=== PATIENT | female | born 1980 | race Caucasian/White ===

== ENCOUNTER 2024-12-16 10:05 | Outpatient (AMB) | payer OTHER, SELFPAY ==
--- NOTE | 2024-12-16 10:07 | A.OFFVIS_ITS ---
Vital Signs 12/16/24 10:08 Height 5 ft 5 in Weight 116 lb BMI 19.3 BP 148/83 H Blood Pressure Location Lt brachial Position Sitting Respiration 15 Pulse 94 Pulse Source Pulse Oximeter Pulse Oximetry (%) 99 Oxygen Delivery Method Room Air Intake Visit Reasons: Sacroiliac Joint Pain Bun Machine Operator Required: No Allergies No Known Allergies Allergy (Verified 12/16/24 10:09) Medication List - Last Reconciled 12/16/24 by Matilde Head LPN No Known Home Meds HPI HPI Sacroiliac Joint Pain: Details: History of Present Illness The patient is a 44-year-old female presenting with chronic sacroiliac joint pain. The pain has been present for several years and is located on the right side, with a severity of 6 out of 10. The patient has previously received sacroiliac joint injections, which provided temporary relief. The patient reports a history of a trivial fall, which she does not consider significant but mentions in relation to her pain history. She has also undergone PRP injections targeting the ligaments surrounding the joint, which provided some relief. The patient has not found other treatments helpful and is considering repeating the PRP injections. The patient has a history of degenerative disc disease at L5-S1, which may contribute to her pain. She has had an MRI of the lumbar spine several years ago, but does not have the results with her. The patient has experienced similar pain during and after her pregnancies, which were in 2014 and 2019. Pain Description - Onset: Several years ago - Location: Right sacroiliac joint - Severity: 6/10 - Exacerbating factors: Not specified - Relieving factors: PRP injections provided some relief - Impact: Pain persists despite previous interventions Physical Exam - Appears afebrile. - Alert and oriented. - Mood and affect appropriate. - Follows and participates in conversation appropriately. - Respiratory effort is unlabored. - Able to transition from sit to stand unassisted. - Ambulates with bilaterally normal heel strike and toe off. Pain Management - Affect: Pain impacts daily activities and quality of life - Analgesia: PRP injections have provided some relief in the past - Adverse Effects: None reported - Activities of Daily Living: Pain persists, affecting daily functioning - Aberrant Drug Related Behaviors: None reported [facility] Medical History (Updated 12/07/24 @ 08:14 by Matilde Head LPN) Left-sided thoracic back pain Left-sided low back pain without sciatica Physical Exam Vital Signs: Last Vital Signs Pulse 94 12/16/24 10:08 Resp 15 12/16/24 10:08 BP 148/83 H 12/16/24 10:08 Pulse Ox 99 12/16/24 10:08 Oxygen Delivery Method Room Air 12/16/24 10:08 BMI result Body Mass Index 19.3 Assessment & Plan Assessment & Plan (1) Left-sided low back pain without sciatica: Code(s): M54.50 - Low back pain, unspecified Category: Medical Plan Plan - Consider repeating PRP injections targeting the ligaments surrounding the sacroiliac joint, as they have provided relief in the past. - Discussed the possibility of stem cell treatments if PRP injections are not effective. - Consider obtaining a repeat MRI of the lumbar spine to assess current status of degenerative disc disease. - Advised against the use of NSAIDs before and after PRP therapy to ensure optimal results. Patient was informed and verbally consented to the use of an ambient scribe for clinic note documentation during this visit. Discussion Notes I discussed with the patient the potential benefits and limitations of PRP injections for her chronic sacroiliac joint pain, noting that they have provided relief in the past. We also considered the option of stem cell treatment if PRP is not effective, and the importance of obtaining a repeat MRI to better understand the current status of her degenerative disc disease. I advised the patient to avoid NSAIDs before and after PRP therapy to ensure optimal results. Patient Instructions - Avoid NSAIDs before and after PRP therapy for at least two weeks. - Consider scheduling a repeat MRI of the lumbar spine. - Follow up with the clinic to discuss the outcomes of PRP therapy and consider further treatment options if necessary. Coding Level of Care Code New Pt Level 4 (57797) Diagnoses Left-sided low back pain without sciatica M54.50
[2024-12-16 10:08] VITALS: BP 148/83; PULSE 94; RESP 15; O2SAT 99; BMI 19.3
--- OUTSIDE RECORDS SUMMARY | 2024-12-16 10:08 | XMS_ITS | Clinical Summary ---
Author Organization [address] Address [address] [place] [phone] Phone Care Team Providers Care Rn Allergy Name Role Phone No, Pcp (Do Not Change Name) Primary Care Provid er Unavailable Allergies No known active allergies Medications etodolac (LODINE) 400 MG tablet Take 1 tablet (400 mg total) by mouth 2 (two) times daily.. Take with food for 21 days 30 tablet 2 7 Active Additional Information Patient not taking.Reported on 02/04/2024 Active Problems No known active problems Immunizations Immunization Administration Dates Next Due Influenza, split virus, trivalent, Preservative Free 04/21/2024 Social History Tobacco Use Types Packs/Day Years Used Date Smoking Tobacco: Never Smokeless Tobacco: Never Comments No Sex and Gender Information Value Date Recorded Sex Assigned at Not on file Legal Sex Female 12:26 PM EDT Gender Identity Not on file Sexual Orientation Not on file Last Filed Vital Signs Vital Sign Reading Time Taken Comments Blood Pressure 104/72 12/18/2016 10:40 AM EDT Pulse 87 12/18/2016 10:40 AM EDT Temperature - - Respiratory Rate - - Oxygen Saturation - - Inhaled Oxygen Concentration - - Weight 49.9 kg (110 lb) 12/18/2016 10:40 AM EDT Height 165.1 cm (5' 5 ) 12/18/2016 10:40 AM EDT Body Mass Index 18.3 12/18/2016 10:40 AM EDT Plan of Treatment Health Maintenance Due Date Last Done Comments HIV screening 12/13/1992 Hepatitis C screening 12/13/1997 Cervical cancer screening 12/13/2000 Breast cancer screening 2019 Lipid disorder screening 2019 Covid-19 vaccine series ( season) 2024 Colon cancer screening, Colonoscopy 12/13/2024 Diabetes screening 12/13/2024 Influenza vaccine 01/09/2025 04/21/2024, , 01/30/2022, Additional history exists Tetanus adult (Td q 10,TDAP once) 01/11/2030 01/12/2020, 02/12/2015, 08/18/2012 RSV Immunization (1 - 1-dose 75+ series) 12/13/2054 Meningococcal Vaccine Aged Out No georgette vinh eligible based on patient's age to complete this topic Pneumococcal Vaccine (2 - 49 years) Aged Out No longer eligible based on patient's age to complete this topic Insurance COMMERCIAL GENERIC COMMERCIAL GENERIC COMMERCIAL GENERIC COMMERCIAL GENERIC Care Teams Rn Allergy Relationship Specialty Start Date End Date No, Pcp (Do Not Change Name) PCP - General 02/04/24
== END 2024-12-16 11:24 | disposition home or self-care (01) ==
PROVIDERS: PCP Family Medicine; Visit Provider Internal Medicine
DX: M54.50 Low back pain, unspecified (principal)
CPT/HCPCS: 99204

== ENCOUNTER 2025-01-05 08:22 | Outpatient (REF) | payer OTHER, SELFPAY ==
--- OUTSIDE RECORDS SUMMARY | 2021-09-12 11:29 | XMS_ITS | Encounter Summary ---
Author Organization [facility] Address [address] [place] [address] Phone Care Team Providers Care Massage Therapist Name Role Phone Primo Elder DO Unavailable Audie Fairchild MD Unavailable Mathew Cueto MD Unavailable [phone] Chari Kaur MD Unavailable Maricel Jain MD Unavailable Jj Blake MD Unavailable Naomi Morton MD Unavailable [phone] Maricel Jain MD Primary Care Provider Encounter Details Date Type Department Care Team (Late st Contact Info) Description 09/12/2021 11:29 AM EDT Hospital Encounter [facility] IMG BDSIDE US AUTO [address] [place] [address] Mary Tamayo MD [address] [place] [address] [email or web address] Social History Tobacco Use Types Packs/Day Years [...] high school, GED, job training, learning the [place] language, technical skills, or developing parenting skills)? [...] 06/25/2024 6:40 PM Yudelka Smith RN * [place] Suicide Severity Rating Scale (Screener/Recent Self-Report) Question [...] Care Team (Late st Contact Info) Description 01/10/2025 1:15 PM EDT Office Visit [facility] [address] [place] [address] Ami Rico MD [address] [place] [address] Orthopedics & Sports Medicine, [place] [address] 01/18/2025 10:20 AM EDT Office Visit [facility] [address] [place] [address] [place] [address] Jj Blake MD [address] [place] [address], [address] [place] [address] 09/25/2025 10:00 AM EDT Office Visit [facility] [place] [facility] [address] [place] [address] Hemalatha Givens MD [address] [facility] [place]. [address] [place] [address] [email or web address] documented as of this encounter Procedures Procedure Name Priority Date/Time Associated Diagnosis Comments US BEDSIDE Routine 09/12/2021 11:29 AM EDT Sacroiliac dysfunction documented in this encounter Results * Bedside Ultrasound (09/12/2021 11:29 AM EDT) Anatomical Region Laterality Modality Ultrasound Narrative 09/12/2021 11:29 AM EDT Pamela Springerde 09/12/2021 1:33 PM Bedside Ultrasound Date/Time: 09/12/2021 11:29 AM Performed by: Mary Tamayo MD Authorized by: Mary Tamayo MD Accession Number: [id number] Mary Tamayo MD IMG POINT OF CARE EXAMS Edited Result - Final documented in this encounter Visit Diagnoses Not on filedocumented in this encounter Additional Health Concerns Assessment Noted Time PHQ-2 Depression Total Score: 0 03/23/20 19 10:03 AM EST documented as of this encounter Care Teams Massage Therapist Relationship Specialty Start Date End Date Maricel Jain MD [address], [address] [place] [address] [email or web address] PCP - General 05/14/17 05/20/22 Primo Elder DO [address] [facility], [address] [place] [address] [email or web address] Historical LMR Provider 02/23/17 Audie Fairchild MD [address] [facility], [address] [place] [address] Historical LMR Provider 02/23/17 Mathew Cueto MD [address] [place] [phone] [email or web address] Historical LMR Provider 02/23/17 Chari Kaur MD [address] [place] [address] [email or web address] Historical LMR Provider 02/23/17 Maricel Jain MD [address] [place] [address] [email or web address] Historical LMR Provider 02/23/17 Jj Blake MD [address] [place] [address] Historical LMR Provider 02/23/17 Naomi Morton MD [address] [place] [phone] [email or web address] Historical LMR Provider 02/23/17 documented as of this encounter Additional Source Comments The information contained in this document represents components of the legal health record. It is not the complete legal health record.[facility]
--- OUTSIDE RECORDS SUMMARY | 2025-01-05 08:56 | XMS_ITS | Encounter Summary ---
Author Organization [facility] Address [address] [place] [address] Phone Care Team Providers Care Rn Surgery Name Role Phone Madai Tejada MD Unavailable [phone] Husam Doll MD Unavailable [phone] Cassandra Myers MD Unavailable Unav ailable Ana Maldonado MD Unavailable Erlinda Rapp Unavailable [phone] Esme Rene DAMAGE CUTTER Unavailable Primo Elder DO Unavailable Ashly Vega DAMAGE CUTTER Unavailable Lina Suarez CNM Unavailable Audie Fairchild MD Unavailable Ziggy Jose DO Unavailable Ernesto Mcallister MD Unavailable Mathew Cueto MD Unavailable Chari Kaur MD Unavailable Maricel Jain MD Unavailable Jj Blake MD Unavailable [phone] Tomas Argueta MD Unavailable Kristy Pettit MD Unavailable [phone] Naomi Morton MD Unavailable Steve Nieto MD Unavailable [phone] Maricel Jain MD Primary Care Provider Roc Solares MD Primary Care Provider [phone] Encounter Details Date Type Department Care Team (Late Contact Info) Description 02/19/2018 Ancillary Orders [facility] [address] [place] [address] Maricel Jain MD [address] [place] [phone] [email or web address] Social History Tobacco Use Types Packs/Day Years Used Date Smoking Tobacco: Never Smokeless Tobacco: Never Alcohol Use Standard Drinks/Week Comments Yes 0 (1 standard drink = 0.6 oz pur e alcohol) Comments Unknown Sex and Gender Information Value Date Recorded Sex Assigned at Female 06/25/2024 6:42 PM EST Legal Sex Female 4:05 PM EST Gender Identity Female 06/25/2024 6:42 PM EST Sexual Orientation Straight 06/25/2024 6: 42 PM EST documented as of this encounter Plan of Treatment Upcoming Encounters Date Type Department Care Team (Late Contact Info) Description 01/10/2025 1:15 PM EDT Office Visit [facility] & Sports Medicine [address] [place] [address] Ami Rico MD [address] [place] [address] Orthopedics & Sports Medicine, [facility] [place] [address] 01/18/2025 10:20 AM EDT Office Visit [facility] [address] [place] [address] [place] [address] Jj Blake MD [address] [place] [address], [address] [place], [place] [phone] 09/25/2025 10:00 AM EDT Office Visit [facility] [place] [facility] [address] [place] [address] Hemalatha Givens MD [address] [facility] [place]. [address] [place] [address] [email or web address] documented as of this encounter Visit Diagnoses Not on filedocumented in this encounter Additional Health Concerns Assessment Noted Time PHQ-2 Depression Total Score: 0 09/01/19 18 2:54 PM EDT documented as of this encounter Care Teams Rn Surgery Relationship Specialty Start Date End Date Maricel Jain MD [address] [place] [address] 7 [place] [address] [email or web address] PCP - General 05/14/17 05/20/22 Roc Solares MD [address] [place] [address] 7 [place] [address] [email or web address] PCP - General Family Medicine 05/21/22 Madai Tejada MD [address] [place] [phone] [email or web address] Historical LMR Provider 09/23/14 05/18/21 Husam Doll MD [address] [place] [address] [email or web address] Historical LMR Provider 09/23/14 05/18/21 Cassandra Myers MD Historical LMR Provider 09/23/14 05/18/21 Ana Maldonado MD [address] [place] [address] [email or web address] Historical LMR Provider 06/01/16 05/18/21 Erlinda Rapp PA [facility] [place] [address] Historical LMR Provider 02/23/17 2 Esme Rene NP 1 [place] [address] Historical LMR Provider 02/23/17 2 Primo Elder DO [address] [place] [address] 7 [place] [address] Historical LMR Provider 02/23/17 Ashly Vega NP [address] [place] [address] Historical LMR Provider 02/23/17 2 Lina Suarez CNM [address] [place] [address] Historical LMR Provider 02/23/17 2 Audie Fairchild MD [address] [facility] [address] [place] [address] Historical LMR Provider 02/23/17 Ziggy Jose DO [address] [place] [address] Orthopedics & Sports Medicine, [place] [address] [email or web address] Historical LMR Provider 02/23/17 05/18/21 Ernesto Mcallister MD [address] [place] [address], [address] [place] [address] Historical LMR Provider 02/23/17 05/18/21 Mathew Cueto MD [address] [place] [phone] [email or web address] Historical LMR Provider 02/23/17 Chari Kaur MD [address] [place] [address] [email or web address] Historical LMR Provider 02/23/17 Maricel Jain MD [address] [place] [address] [email or web address] Historical LMR Provider 02/23/17 Jj Blake MD [address] [place] [address] [email or web address] Historical LMR Provider 02/23/17 Tomas Argueta MD [address] [place] [phone] Historical LMR Provider 02/23/17 2 Kristy Pettit MD [address] [place] [address] Orthopedics & Sports Medicine, [facility]. [place], [place] [phone] [email or web address] Historical LMR Provider 02/23/17 Naomi Morton MD [address] [place] [address] 7 [place] [address] [email or web address] Historical LMR Provider 02/23/17 Steve Nieto MD [address] [place] [address] Historical LMR Provider 02/23/17 2 documented as of this encounter Additional Source Comments The information contained in this document represents components of the legal health record. It is not the complete legal health record.[facility]
--- OUTSIDE RECORDS SUMMARY | 2025-01-05 08:56 | XMS_ITS | Encounter Summary ---
Author Organization [facility] Address [address] [place] [address] Phone Care Team Providers Care Scaling Machine Operator Name Role Phone Madai Tejada MD Unavailable [phone] Husam Doll MD Unavailable [phone] Cassandra Myers MD Unavailable Unav ailable Ana Maldonado MD Unavailable Erlinda Rapp Unavailable [phone] Esme Rene TURNER MACHINE OPERATOR Unavailable Primo Elder DO Unavailable Ashly Vega TURNER MACHINE OPERATOR Unavailable [phone] Lina Suarez CNM Unavailable Audie Fairchild MD Unavailable Ziggy Jose DO Unavailable Ernesto Mcallister MD Unavailable Mathew Cueto MD Unavailable Chari Kaur MD Unavailable Maricel Jain MD Unavailable Jj Blake MD Unavailable [phone] Tomas Argueta MD Unavailable Kristy Pettit MD Unavailable [phone] Naomi Morton MD Unavailable [phone] Steve Nieto MD Unavailable [phone] Maricel Jain MD Primary Care Provider Roc Solares MD Primary Care Provider Encounter Details Date Type Department Care Team (Late Contact Info) Description 02/19/2018 Ancillary Orders [facility] [address] [place] [address] Maricel Jain MD [address] [place] [address] [phone] [email or web address] Closed displaced fracture of acromial end of left clavicle, sequela Social History Tobacco Use Types Packs/Day Years [...] 6:42 PM EST Sexual Orientation Straight 06/25/2024 6 :42 PM EST documented as of this encounter Plan of Treatment Upcoming Encounters Date Type Department Care Team ([facility] Contact Info) Description 01/10/2025 1:15 PM EDT Office Visit [facility] Orthopedics & Sports Medicine [address] [place] [address] Ami Rico MD [address] [place] [address] Orthopedics & Sports Medicine, [facility] [place] [address] 01/18/2025 10:20 AM EDT Office Visit [facility] OBGYN & Midwifery [address] [place] [address] [place] [address] Jj Blake MD [address] [place] [address], [address] [place] [address] 09/25/2025 10:00 AM EDT Office Visit [facility] [place] [facility] [address] [facility] [address] [place] [address] Hemalatha Givens MD 15 [facility] [place]. 201 [place] [address] [email or web address] documented as of this encounter Results * XR Clavicle (Right) (02/19/2018 2:58 PM EDT) Anatomical Region Laterality Modality Shoulder Right Radiographic Fatemeh ging 02/19/2018 9:37 PM EDT Impressions 02/19/2018 9:44 PM EDT Right clavicle: Normal. Left clavicle: Internally fixated non-united distal clavicular fracture. POS - [id number] Narrative 02/19/2018 9:44 PM EDT EXAM: XR CLAVICLE (RIGHT), 3 views XR CLAVICLE (LEFT), 3 views COMPARISON: Right clavicle on May 29, 2016. FINDINGS: Right clavicle: Right clavicle is intact. Sternoclavicular and acromioclavicular joints are congruent. Left clavicle: Internally fixated left clavicular fracture. The hardware appears intact. Hypertrophy of the bone fragments surrounding the persistent linear lucency in the distal clavicle. Good alignment of the fracture site. Sternoclavicular and acromioclavicular joints are congruent. Procedure Note Joselo Martinez MD - 02/19/2018 EXAM: XR CLAVICLE (RIGHT), 3 views XR CLAVICLE (LEFT), 3 views COMPARISON: Right clavicle on May 29, 2016. FINDINGS: Right clavicle: Right clavicle is intact. Sternoclavicular andacromioclavicular joints are congruent. Left clavicle: Internally fixated left clavicular fracture. The hardwareappears intact. Hypertrophy of the bone fragments surrounding thepersistent linear lucency in the distal clavicle. Good alignment of thefracture site. Sternoclavicular and acromioclavicular joints arecongruent. IMPRESSION: Right clavicle: Normal. Left clavicle: Internally fixated non-united distal clavicular fracture. POS - [id number] Maricel Jain MD IMG XR CHEST Final Result documented in this encounter Visit Diagnoses Diagnosis Closed displaced fracture of acromial end of left clavicle, sequela Closed nondisplaced fracture of sternal end of left clavicle, sequela Closed displaced fracture of acromial end of left clavicle, sequela documented in this encounter Additional Health Concerns Assessment Noted Time PHQ-2 Depression Total Score: 0 09/01/19 18 2:54 PM EDT documented as of this encounter Care Teams Scaling Machine Operator Relationship Specialty Start Date End Date Maricel Jain MD [address] [place] [address] [email or web address] PCP - General 05/14/17 05/20/22 Roc Solares MD [address] [place] [address] PCP - General Family Medicine 05/21/22 Madai Tejada MD [address] [place] [address] [email or web address] Historical LMR Provider 09/23/14 05/18/21 Husam Doll MD [address] [place] [address] [email or web address] Historical LMR Provider 09/23/14 05/18/21 Cassandra Myers MD Historical LMR Provider 09/23/14 05/18/21 Ana Maldonado MD [address] [place] [address] [email or web address] Historical LMR Provider 06/01/16 05/18/21 Erlinda Rapp PA [facility] [place] [address] Historical LMR Provider 02/23/17 2 Esme Rene NP [address] [place] [address] Historical LMR Provider 02/23/17 2 Primo Elder DO [address] [place] [address] [address] [place] [address] Historical LMR Provider 02/23/17 Ashly Vega NP 29 [place] [address] Historical LMR Provider 02/23/17 2 Lina Suarez CNM [address] [place] [address] Historical LMR Provider 02/23/17 2 Audie Fairchild MD 22 [facility] 102 [place] [address] Historical LMR Provider 02/23/17 Ziggy Jose DO [address] [place] [address] Orthopedics & Sports Medicine, [facility] [place] [address] [email or web address] Historical LMR Provider 02/23/17 05/18/21 Ernesto Mcallister MD [address] [place] [address], 2nd [place] [address] Historical LMR Provider 02/23/17 05/18/21 Mathew Cueto MD [address] [place] [address] [phone] [email or web address] Historical LMR Provider 02/23/17 Chari Kaur MD [address] [place] [address] [email or web address] Historical LMR Provider 02/23/17 Maricel Jain MD [address] [place] [address] [email or web address] Historical LMR Provider 02/23/17 Jj Blake MD [address] [place] [address] [email or web address] Historical LMR Provider 02/23/17 Tomas Argueta MD [address] [place] [address] [phone] Historical LMR Provider 02/23/17 Kristy Ponce MD [address] [place] [address] [facility] [place] [address] [email or web address] Historical LMR Provider 02/23/17 Naomi [place] MD [address] [place] [address], [address] [place] [address] [email or web address] Historical LMR Provider 02/23/17 Steve Nieto MD [address] [place] [address] Historical LMR Provider 02/23/17 2 documented as of this encounter Additional Source Comments The information contained in this document represents components of the legal health record. It is not the complete legal health record.[facility]
--- OUTSIDE RECORDS SUMMARY | 2025-01-05 08:56 | XMS_ITS | Encounter Summary ---
Author Organization [facility] Address [address] [place] [address] Phone Care Team Providers Care Registrar Assistant Name Role Phone Primo Elder DO Unavailable Audie Fairchild MD Unavailable Mathew Cueto MD Unavailable Chari Kaur MD Unavailable Maricel Jain MD Unavailable Jj Blake MD Unavailable Naomi Morton MD Unavailable Roc Solares MD Primary Care Provider Encounter Details Date Type Department Care Team (Late st Contact Info) Description 07/06/2024 Telephone [facility] Family Medicine [address] [place] [address] [place] [address] [place] [address] Social History Tobacco Use Types Packs/Day Years [...] high school, GED, job training, learning the Uzbek language, technical skills, or developing parenting skills)? [...] your housing situation today? I have momo maritni 04/21/2024 How many times have you move [...] on file documented as of this encounter Plan of Treatment Upcoming Encounters Date Type Department Care Team (Late st Contact Info) Description 01/10/2025 1:15 PM EDT Office Visit [facility] Orthopedics & Sports Medicine [address] [place] [address] Ami Rico MD [address] [place] [address] Orthopedics & Sports Medicine, [place] [address] 01/18/2025 10:20 AM EDT Office Visit [facility] OBGYN & Midwifery [address] [place] [address] [place] [address] Jj Blake MD [address] [facility], [address] [place] [address] 09/25/2025 10:00 AM EDT Office Visit [facility] [place] Primary Care [address] [facility] [address] [place] [address] Hemalatha Givens MD 15 [facility] [place]. 201 [place] [address] documented as of this encounter Visit Diagnoses Not on filedocumented in this encounter Additional Health Concerns Assessment Noted Time PHQ-2 Depression Total Score: 0 04/21/20 24 12:01 PM EST documented as of this encounter Care Teams Registrar Assistant Relationship Specialty Start Date End Date Roc Solares MD [address] [place] [address], [address] [place] [address] PCP - General Family Medicine 05/21/22 Primo Elder DO [address] [place] [address] [email or web address] Historical LMR Provider 02/23/17 Audie Fairchild MD [address] [place] [address] [email or web address] Historical LMR Provider 02/23/17 Mathew Cueto MD [address] [place] [phone] [email or web address] Historical LMR Provider 02/23/17 Chari Kaur MD [address] [place] [address] [email or web address] Historical LMR Provider 02/23/17 Maricel Jain MD [address] [place] [address] [email or web address] Historical LMR Provider 02/23/17 Jj Blake MD [address] [place] [address] [email or web address] Historical LMR Provider 02/23/17 Naomi [place] MD [address] [place] [address] [email or web address] Historical LMR Provider 02/23/17 documented as of this encounter Additional Source Comments The information contained in this document represents components of the legal health record. It is not the complete legal health record.[facility]
--- OUTSIDE RECORDS SUMMARY | 2025-01-05 08:56 | XMS_ITS | Encounter Summary ---
Author Organization [facility] Address [address] [place] [address] Phone Care Team Providers Care Fuel House Attendant Name Role Phone Primo Elder DO Unavailable Audie Fairchild MD Unavailable Mathew Cueto MD Unavailable [phone] Chari Kaur MD Unavailable Maricel Jain MD Unavailable [phone] Jj Blake MD Unavailable [phone] Naomi Morton MD Unavailable [phone] Roc Solares MD Primary Care Provider [phone] Encounter Details Date Type Department Care Team (Late st Contact Info) Description 04/21/2024 Procedure Pass [address] [place] [address] Social History Tobacco Use Types Packs/Day Years [...] high school, GED, job training, learning the Romanian language, technical skills, or developing parenting skills)? [...] your housing situation today? I have momo sing 04/21/2024 How many times have you move [...] Intimate Partner Violence Answer Date R ecorded Denied Basic Needs Not on file 04/21/2024 In the past 12 months have y ou been in a relationship with a person who hurts, threatens, or tries to control you? No 04/21/2024 Worried food would run out Not on file 04/21 In the past 12 months have y ou been in a relationship with a person who hurts, threatens, or tries to control you? No 04/21/2024 Comments No Sex and Gender Information Value [...] [facility] Orthopedics & Sports Medicine [address] [place] [address] Ami Rico MD [address] [place] [address] Orthopedics & Sports Medicine, [facility] [place] [address] 01/18/2025 10:20 AM EDT Office Visit [facility] OBGYN & Midwifery [address] [place] [address] [place] [address] Jj Blake MD 22 [facility], [address] [place] [address] 09/25/2025 10:00 AM EDT Office Visit [facility] [place] [facility] [address] [facility] [address] [place] [address] Hemalatha Givens MD 15 [facility] [place]. 201 [place] [address] documented as of this encounter Visit Diagnoses Not on filedocumented in this encounter Additional Health Concerns Assessment Noted Time PHQ-2 Depression Total Score: 0 04/21/20 24 12:01 PM EST documented as of this encounter Care Teams Fuel House Attendant Relationship Specialty Start Date End Date Roc Solares MD 234 [facility] 7 [place], [place] [phone] PCP - General Family Medicine 05/21/22 Primo Elder DO 234 [facility] 7 [place], [place] [phone] Historical LMR Provider 02/23/17 Audie Fairchild MD [address] [place] [address] Historical LMR Provider 02/23/17 Mathew Cueto MD [address] [place] [phone] [email or web address] Historical LMR Provider 02/23/17 Chari Kaur MD [address] [place] [address] [email or web address] Historical LMR Provider 02/23/17 Maricel Jain MD [address] [place] [address] [email or web address] Historical LMR Provider 02/23/17 Jj Blake MD [address] [place] [address] Historical LMR Provider 02/23/17 Naomi [place] MD [address] [place] [address] [email or web address] Historical LMR Provider 02/23/17 documented as of this encounter Additional Source Comments The information contained in this document represents components of the legal health record. It is not the complete legal health record.[facility]
--- OUTSIDE RECORDS SUMMARY | 2025-01-05 08:56 | XMS_ITS | Encounter Summary ---
Author Organization [facility] Address [address] [place] [address] Phone Care Team Providers Care Purchasing Assistant Name Role Phone Primo Elder DO Unavailable Audie Fairchild MD Unavailable Mathew Cueto MD Unavailable [phone] Chari Kaur MD Unavailable Maricel Jain MD Unavailable [phone] Jj Blake MD Unavailable [phone] Naomi Morton MD Unavailable [phone] Roc Solares MD Primary Care Provider Encounter Details Date Type Department Care Team (Late st Contact Info) Description 07/08/2024 Telephone [facility] Family Medicine [address] [place] [address] [place] [phone] [place] [address] Social History Tobacco Use Types Packs/Day Years [...] Description 01/10/2025 1:15 PM EDT Office Visit [facility] Orthopedics & Sports Medicine [address] [place] [address] Ami Rico MD [address] [place] [address] Orthopedics & Sports Medicine, [place] [address] 01/18/2025 10:20 AM EDT Office Visit [facility] OBGYN & Midwifery [address] [place] [address] [place] [address] Jj Blake MD 22 [facility], [address] [place] [address] 09/25/2025 10:00 AM EDT Office Visit [facility] [place] [facility] [address] [facility] [address] [place] [address] Hemalatha Givens MD 15 [facility] [place]. 201 [place] [address] documented as of this encounter Visit Diagnoses Not on filedocumented in this encounter Additional Health Concerns Assessment Noted Time PHQ-2 Depression Total Score: 0 04/21/20 24 12:01 PM EST documented as of this encounter Care Teams Purchasing Assistant Relationship Specialty Start Date End Date Roc Solares MD [address] [place] [address], [address] [place] [address] PCP - General Family Medicine 05/21/22 Primo Elder DO [address] [place] [address] [email or web address] Historical LMR Provider 02/23/17 Audie Fairchild MD [address] [place] [address] [email or web address] Historical LMR Provider 02/23/17 Mathew Cueto MD [address] [place] [phone] [email or web address] Historical LMR Provider 02/23/17 Chari Kaur MD [address] [place] [address] [email or web address] Historical LMR Provider 02/23/17 Maricel Jain MD [address] [place] [address] [email or web address] Historical LMR Provider 02/23/17 Jj Blake MD [address] [place] [address] [email or web address] Historical LMR Provider 02/23/17 Naomi [place] MD [address] [place] [address] [email or web address] Historical LMR Provider 02/23/17 documented as of this encounter Additional Source Comments The information contained in this document represents components of the legal health record. It is not the complete legal health record.[facility]
--- OUTSIDE RECORDS SUMMARY | 2025-01-05 08:56 | XMS_ITS | Encounter Summary ---
Author Organization [facility] Address [address] [place] [address] Phone Care Team Providers Care Data Examination Clerk Name Role Phone Madai Tejada MD Unavailable [phone] Husam Doll MD Unavailable [phone] Cassandra Myers MD Unavailable Unav ailable Ana Maldonado MD Unavailable Erlinda Rapp Unavailable [phone] Esme Rene NAPKIN MACHINE OPERATOR Unavailable Primo Elder DO Unavailable Ashly Vega NAPKIN MACHINE OPERATOR Unavailable Lina Suarez CNM Unavailable Audie Fairchild MD Unavailable Ziggy Jose DO Unavailable Ernesto Mcallister MD Unavailable [phone] Mathew Cueto MD Unavailable Chari Kaur MD Unavailable Maricel Jain MD Unavailable Jj Blake MD Unavailable [phone] Tomas Argueta MD Unavailable Kristy Pettit MD Unavailable Naomi Morton MD Unavailable [phone] Steve Nieto MD Unavailable [phone] Maricel Jain MD Primary Care Provider Roc Solares MD Primary Care Provider Encounter Details Date Type Department Care Team (Late st Contact Info) Description 01/23/2018 Transcribe Orders [facility] Specimen Processing [address] [place] [address] Lizzie Salmon, [address], [address] [place] [address] Wound infection (Primary Dx) Social History Tobacco Use Types Packs/Day Years [...] [facility] Orthopedics & Sports Medicine [address] [place] [address] Ami Rico MD [address] [place] [address] Orthopedics & Sports Medicine, [facility] [place] [address] 01/18/2025 10:20 AM EDT Office Visit [facility] [address] [place] [address] [place] [address] Jj Blake MD [address] [place] [address], [address] [place] [address] 09/25/2025 10:00 AM EDT Office Visit [facility] [place] [facility] 15 [facility] [address] [place] [address] Hemalatha Givens MD 15 [facility] [place]. [address] [place] [address] [email or web address] documented as of this encounter Results * Wound culture/smear (01/22/2018 7:39 PM EDT) Specimen Source/ Description HIP RIGHT HIP WOUND CULTURE HIP [facility] Special Requests None [facility] GRAM STAIN NO ORGANISMS SEEN [facility] Culture/Test NO GROWTH 48HRS [facility] Report Status 01/25/2018 FINAL [facility] Other (Hip) 01/22/2018 7:39 PM EDT 01/23/2018 3:22 PM EDT us Lizzie [place] OCCUPATIONAL HEALTH COORDINATOR MICROBIOLOGY - GENERAL O RDERABLES Final Result [facility] [address] [place] [address] documented in this encounter Visit Diagnoses Diagnosis Wound infection- Primary Posttraumatic wound infection not elsewhere classified documented in this encounter Additional Health Concerns Assessment Noted Time PHQ-2 Depression Total Score: 0 09/01/19 18 2:54 PM EDT documented as of this encounter Care Teams Data Examination Clerk Relationship Specialty Start Date End Date Maricel Jain MD [address] [place] [address], [facility] 7 [place] [address] [email or web address] PCP - General 05/14/17 05/20/22 Roc Solares MD [address] [place] [address], [facility] 7 [place] [address] PCP - General Family Medicine 05/21/22 Madai Tejada MD [address] [address] [email or web address] Historical LMR Provider 09/23/14 05/18/21 Husam Doll MD [address] [place] [address] [email or web address] Historical LMR Provider 09/23/14 05/18/21 Cassandra Myers MD Historical LMR Provider 09/23/14 05/18/21 Ana Maldonado MD 65 [place] [address] [email or web address] Historical LMR Provider 06/01/16 05/18/21 Erlinda Rapp PA [address] [place], [place] [address]césar [place] [address] Historical LMR Provider 02/23/17 2 Esme Rene NP [address] [place] [address] Historical LMR Provider 02/23/17 2 Primo Elder DO 234 [facility] 7 [place] [address] [email or web address] Historical LMR Provider 02/23/17 Ashly Vega NP 29 [place] [address] Historical LMR Provider 02/23/17 2 Lina Suarez CNM [address] [place] [address] Historical LMR Provider 02/23/17 2 Audie Fairchild MD [address] [place] [address] Historical LMR Provider 02/23/17 Ziggy Jose DO [address] [place] [address] Orthopedics & Sports Medicine, [place] [address] Historical LMR Provider 02/23/17 05/18/21 Ernesto Mcallister MD [address] [place] [address], 2nd [place] [address] Historical LMR Provider 02/23/17 05/18/21 Mathew Cueto MD [address] [place] [phone] [email or web address] Historical LMR Provider 02/23/17 hCari Kaur MD [address] [place] [address] [email or web address] Historical LMR Provider 02/23/17 Maricel Jain MD [address] [place] [address] [email or web address] Historical LMR Provider 02/23/17 Jj Blake MD [address] [address] Historical LMR Provider 02/23/17 Tomas Argueta MD [address] [place] [address] 7 [place] [address] Historical LMR Provider 02/23/17 2 Kristy Pettit MD [address] [place] [address] Orth[facility]ics [facility] Sports Medicine, [place] [address] Historical LMR Provider 02/23/17 Naomi [place] MD 234 [facility] 7 [place] [address] Historical LMR Provider 02/23/17 Steve Nieto MD 61 [place] [address] Historical LMR Provider 02/23/17 2 documented as of this encounter Additional Source Comments The information contained in this document represents components of the legal health record. It is not the complete legal health record.[facility]
--- OUTSIDE RECORDS SUMMARY | 2025-01-05 08:56 | XMS_ITS | Encounter Summary ---
Author Organization [facility] Address [address] [place] [address] Phone Care Team Providers Care Shop Technician Name Role Phone Primo Elder DO Unavailable Audie Fairchild MD Unavailable Mathew Cueto MD Unavailable Chari Kaur MD Unavailable Maricel Jain MD Unavailable Jj Blake MD Unavailable [phone] Naomi Morton MD Unavailable [phone] Roc Solares MD Primary Care Provider [phone] Encounter Details Date Type Department Care Team (Late st Contact Info) Description 07/06/2024 Procedure Pass OR Admitting Dept - Virtual Department [address] [place] [address] Social History Tobacco Use Types Packs/Day Years [...] high school, GED, job training, learning the Surinamese language, technical skills, or developing parenting skills)? [...] Description 01/10/2025 1:15 PM EDT Office Visit [facility] Orthopedics & Sports Medicine [address] [place] [address] Ami Rico MD [address] [place] [address] Orthopedics & Sports Medicine, [facility] [place] [address] 01/18/2025 10:20 AM EDT Office Visit [facility] OBGYN & Midwifery [address] [place] [address] [place] [address] Jj Blake MD 22 [facility], [address] [place] [address] 09/25/2025 10:00 AM EDT Office Visit [facility] [place] [facility] [address] [facility] [address] [place] [address] Hemalatha Givens MD 15 [facility] [place]. 201 [place] [address] documented as of this encounter Visit Diagnoses Not on filedocumented in this encounter Additional Health Concerns Assessment Noted Time PHQ-2 Depression Total Score: 0 04/21/20 24 12:01 PM EST documented as of this encounter Care Teams Shop Technician Relationship Specialty Start Date End Date Roc Solares MD 234 [facility] 7 [place] [address] PCP - General Family Medicine 05/21/22 Primo Elder DO [address] [place] [address] 7 [place] [address] [email or web address] Historical LMR Provider 02/23/17 Audie Fairchild MD [address] [place] [address] [email or web address] Historical LMR Provider 02/23/17 Mathew Cueto MD [address] [place] [phone] [email or web address] Historical LMR Provider 02/23/17 Chari Kaur MD [address] [place] [address] [email or web address] Historical LMR Provider 02/23/17 Maricel Jain MD [address] [place] [address] [email or web address] Historical LMR Provider 02/23/17 Jj Blake MD [address] [place] [address] Historical LMR Provider 02/23/17 Naomi Morton MD [address] [place] [address] [email or web address] Historical LMR Provider 02/23/17 documented as of this encounter Additional Source Comments The information contained in this document represents components of the legal health record. It is not the complete legal health record.[facility]
--- OUTSIDE RECORDS SUMMARY | 2025-01-05 08:56 | XMS_ITS | Encounter Summary ---
Author Organization [facility] Address [address] [place] [address] Phone Care Team Providers Care Batch Attendant Name Role Phone Madai Tejada MD Unavailable [phone] Husam Doll MD Unavailable [phone] Cassandra Myers MD Unavailable Unav ailable Ana Maldonado MD Unavailable Erlinda Rapp Unavailable [phone] Esme Rene SLIDE FORMING MACHINE TENDER Unavailable Primo Elder DO Unavailable Ashly Vega SLIDE FORMING MACHINE TENDER Unavailable Lina Suarez CNM Unavailable Audie Fairchild MD Unavailable Ziggy Jose DO Unavailable Ernesto Mcallister MD Unavailable [phone] Mathew Cueto MD Unavailable [phone] Chari Kaur MD Unavailable Maricel Jain MD Unavailable Jj Blake MD Unavailable [phone] Tomas Argueta MD Unavailable Kristy Pettit MD Unavailable [phone] Naomi Morton MD Unavailable [phone] Steve Nieto MD Unavailable [phone] Maricel Jain MD Primary Care Provider Roc Solares MD Primary Care Provider Encounter Details Date Type Department Care Team (Late Contact Info) Description 11/05/2017 Ancillary Orders Virtual Department 30 [place] [address] [place] Sandoval MD [address] [place] [address] Bilateral hip pain Social History Tobacco Use Types Packs/Day Years [...] Upcoming Encounters Date Type Department Care Team ([facility] Contact Info) Description 01/10/2025 1:15 PM EDT Office Visit [facility] Orth[facility]ics & Sports Medicine [address] [place] [address] Ami Rico MD [address] [place] [address] Orthopedics & Sports [place] [address] 01/18/2025 10:20 AM EDT Office Visit [facility] [address] [place] [address] [place] [address] Jj Blake MD [address] [place] [address], [address] [place] [address] [email or web address] 09/25/2025 10:00 AM EDT [facility] [place] [facility] [address] [facility] [address] [place] [address] Hemalatha Givens MD 15 [facility] [place]. 201 [place] [address] [email or web address] documented as of this encounter Visit Diagnoses Diagnosis Bilateral hip pain Pain in joint, pelvic region and thigh documented in this encounter Additional Health Concerns Assessment Noted Time PHQ-2 Depression Total Score: 0 09/01/19 18 2:54 PM EDT documented as of this encounter Care Teams Batch Attendant Relationship Specialty Start Date End Date Maricel Jain MD [address] [place] [address] 7 [place] [address] [email or web address] PCP - General 05/14/17 05/20/22 Roc Solares MD [address] [place] [address] 7 [place] [address] [email or web address] PCP - General Family Medicine 05/21/22 Madai Tejada MD [address] [place] [address] [email or web address] Historical LMR Provider 09/23/14 05/18/21 Husam Doll MD [address] [place] [address] [email or web address] Historical LMR Provider 09/23/14 05/18/21 Cassandra Myers MD Historical LMR Provider 09/23/14 05/18/21 Ana Maldonado MD [address] [place] [address] [email or web address] Historical LMR Provider 06/01/16 05/18/21 Erlinda Rapp PA [facility], [facility] [place] [address] Historical LMR Provider 02/23/17 2 Esme Rene NP 1 [place] [address] Historical LMR Provider 02/23/17 2 Primo Elder DO [address] [place] [address] 7 [place] [address] Historical LMR Provider 02/23/17 Ashly Vega NP [address] [place] [address] Historical LMR Provider 02/23/17 2 Lina Suarez CNM [address] [place] [address] Historical LMR Provider 02/23/17 2 Audie Fairchild MD 22 [facility] [address] [place] [address] Historical LMR Provider 02/23/17 Ziggy Jose DO [address] [place] [address] Orthopedics & Sports Medicine, [place] [address] Historical LMR Provider 02/23/17 05/18/21 Ernesto Mcallister MD [address] [place] [address], 2nd [place] [address] Historical LMR Provider 02/23/17 05/18/21 Mathew Cueto MD [address] [place] [phone] [email or web address] Historical LMR Provider 02/23/17 Chari Kaur MD [address] [place] [address] [email or web address] Historical LMR Provider 02/23/17 Maricel Jain MD [address] [place] [address] [email or web address] Historical LMR Provider 02/23/17 Jj Blake MD [address] [place] [address] Historical LMR Provider 02/23/17 Tomas Argueta MD [address] [place] [address] [phone] Historical LMR Provider 02/23/17 Kristy Ponce MD [address] [place] [address] Orthopedics & Sports Medicine, [place], [place] [phone] Historical LMR Provider 02/23/17 Naomi [place] MD [address] [place] [address] 7 [place] [address] [email or web address] Historical LMR Provider 02/23/17 Steve Nieto MD [address] [place] [address] Historical LMR Provider 02/23/17 2 documented as of this encounter Additional Source Comments The information contained in this document represents components of the legal health record. It is not the complete legal health record.[facility]
--- OUTSIDE RECORDS SUMMARY | 2025-01-05 08:56 | XMS_ITS | Encounter Summary ---
Author Organization [facility] Address [address] [place] [address] Phone Care Team Providers Care Lamp Developer Name Role Phone Madai Tejada MD Unavailable [phone] Husam Doll MD Unavailable [phone] Cassandra Myers MD Unavailable Unav ailable Ana Maldonado MD Unavailable Erlinda Rapp Unavailable [phone] Esme Rene EXECUTIVE ADMINISTRATOR Unavailable Primo Elder DO Unavailable Ashly Vega EXECUTIVE ADMINISTRATOR Unavailable Lina Suarez CNM Unavailable Audie Fairchild MD Unavailable Ziggy Jose DO Unavailable Ernesto Mcallister MD Unavailable Mathew Cueto MD Unavailable [phone] Chari Kaur MD Unavailable Maricel Jain MD Unavailable Jj Blake MD Unavailable Tomas Argueta MD Unavailable Kristy Pettit MD Unavailable [phone] Naomi Morton MD Unavailable [phone] Steve Nieto MD Unavailable [phone] Maricel Jain MD Primary Care Provider [phone] Roc Solares MD Primary Care Provider [phone] Encounter Details Date Type Department Care Team (Late st Contact Info) Description 04/21/2018 Procedure Pass [facility], [facility] - [address] [place] [address] Social History Tobacco Use Types Packs/Day Years [...] Description 01/10/2025 1:15 PM EDT Office Visit [facility] Orthopedics & Sports Medicine [address] [place] [address] Ami Rico MD [address] [place] [address] Orthopedics & Sports Medicine, [place] [address] 01/18/2025 10:20 AM EDT Office Visit [facility] OBGYN & Midwifery [address] [place] [address] [place] [address] Jj Blake MD [address] [place] [address], [facility] 102 [place] [address] 09/25/2025 10:00 AM EDT Office Visit [facility] [address] [place] [address] [address] [place] [address] Hemalatha Givens MD [address] [facility] [place]. 201 [place] [address] [email or web address] documented as of this encounter Visit Diagnoses Not on filedocumented in this encounter Additional Health Concerns Assessment Noted Time PHQ-2 Depression Total Score: 0 09/01/19 18 2:54 PM EDT documented as of this encounter Care Teams Lamp Developer Relationship Specialty Start Date End Date Maricel Jain MD 234 [facility] 7 [place] [address] [email or web address] PCP - General 05/14/17 05/20/22 Roc Solares MD [address] [place] [address] 7 [place] [address] [email or web address] PCP - General Family Medicine 05/21/22 Madai Tejada MD [address] [place] [address] [email or web address] Historical LMR Provider 09/23/14 05/18/21 Husam Doll MD [address] [place] [address] [email or web address] Historical LMR Provider 09/23/14 05/18/21 Cassandra Myers MD Historical LMR Provider 09/23/14 05/18/21 Ana Maldonado MD 65 [place] [address] [email or web address] Historical LMR Provider 06/01/16 05/18/21 Erlinda Rapp PA [facility] [place] [address] Historical LMR Provider 02/23/17 2 Esme Rene NP 1 [place] [address] Historical LMR Provider 02/23/17 2 Primo Elder DO [address] [place] [address] 7 [place] [address] [email or web address] Historical LMR Provider 02/23/17 Ashly Vega NP [address] [place] [address] Historical LMR Provider 02/23/17 2 Lina Suarez CNM 30 [place] [address] Historical LMR Provider 02/23/17 2 Audie Fairchild MD [address] [address] Historical LMR Provider 02/23/17 Ziggy Jose DO [address] [place] [address] Orthopedics & Sports Medicine, [place] [address] Historical LMR Provider 02/23/17 05/18/21 Ernesto Mcallister MD [address] [facility], 2nd [place] [address] [email or web address] Historical LMR Provider 02/23/17 05/18/21 Mathew Cueto MD [address] [place] [address] [phone] [email or web address] Historical LMR Provider 02/23/17 Chari Kaur MD [address] [place] [address] [email or web address] Historical LMR Provider 02/23/17 Maricel Jain MD [address] [place] [address] [email or web address] Historical LMR Provider 02/23/17 Jj Blake MD [address] [place] [address] [email or web address] Historical LMR Provider 02/23/17 Tomas Argueta MD [address] [place] [address] [phone] Historical LMR Provider 02/23/17 2 Kristy Pettit MD [address] [place] [address] Orthopedics & Sports Medicine, [facility]. [place], [place] [phone] [email or web address] Historical LMR Provider 02/23/17 Naomi [place] MD [address] [place] [address] [email or web address] Historical LMR Provider 02/23/17 Steve Nieto MD [address] [place] [address] Historical LMR Provider 02/23/17 2 documented as of this encounter Additional Source Comments The information contained in this document represents components of the legal health record. It is not the complete legal health record.[facility]
--- OUTSIDE RECORDS SUMMARY | 2025-01-05 08:57 | XMS_ITS | Encounter Summary ---
Author Organization [facility] Address [address] [place] [address] Phone Care Team Providers Care Steam Brush Operator Name Role Phone Madai Tejada MD Unavailable [phone] Husam Doll MD Unavailable [phone] Cassandra Myers MD Unavailable Unav ailable Ana Maldonado MD Unavailable [phone] Erlinda Rapp Unavailable Esme Rene NEUROSURGICAL NURSE PRACTITIONER Unavailable Primo Elder DO Unavailable Ashly Vega NEUROSURGICAL NURSE PRACTITIONER Unavailable Lina Suarez CNM Unavailable Audie Fairchild MD Unavailable Ziggy Jose DO Unavailable Ernesto Mcallister MD Unavailable Mathew Cueto MD Unavailable [phone] Chari Kaur MD Unavailable Maricel Jain MD Unavailable [phone] Jj Blake MD Unavailable Tomas Argueta MD Unavailable [phone] Kristy Pettit MD Unavailable Naomi [place] MD Unavailable Steve Nieto MD Unavailable [phone] Maricel Jain MD Primary Care Provider Roc Solares MD Primary Care Provider Encounter Details Date Type Department Care Team (Latest Contact Info) Description 04/13/2019 Transcribe Orders [facility] [address] [place] [address] [place] [address] Mathew Jewell MD [address] [place] [address] Female infertility (Primary Dx) Social History Tobacco Use Types Packs/Day Years Used Date Smoking Tobacco: Never Smokeless Tobacco: Never Alcohol Use Standard Drinks/Week Comments Yes 0 (1 standard drink = 0.6 oz pur e alcohol) Comments No Sex and Gender Information Value [...] [facility] Medicine [address] [place] [address] Ami Rico MD [address] [place] [address] Orth[facility] [place] [address] 01/18/2025 10:20 AM EDT Office Visit [facility] [address] [place] [address] [place] [address] Jj Blake MD [address] [place] [address], [address] [place] [address] 09/25/2025 10:00 AM EDT Office Visit [facility] [place] [facility] [address] [facility] [address] [place] [address] Hemalatha Givens MD 15 [facility] [place]. 201 [place] [address] [email or web address] documented as of this encounter Results * FSH (04/13/2019 12:35 PM EST) FSH 11.5 IU/L [facility] Comment: FEMALE: Follicular: 3.5 - 12.5 mIU/ml. Ovulate: 4.7 - 21.5 mIU/ml. Luteal: 1.7 - 7.7 mIU/ml. Postmenopausal: 25.8 - 134.8 mIU/ml. Blood 04/13/2019 12:3 5 PM EST 04/13/2019 12:37 PM EST us Mathew Jewell MD LAB BLOOD ORDERABLES Final Resu lt Performing Organization Address City/[facility]/ZIP Co de Phone Number [address] [address] * Estradiol (04/13/2019 12:35 PM EST) ESTRADIOL 383 pg/mL [facility] Comment: FEMALE: Follicular: Less than 12 to 233 pg/ml Midcycle: 41 - 398 pg/ml Luteal: 22 - 341 pg/ml Postmenopausal: less than 5 - 138 pg/ml Blood 04/13/2019 12:3 5 PM EST 04/13/2019 12:37 PM EST Mathew Jewell MD LAB BLOOD ORDERABLES Final Resu lt [address] [address] documented in this encounter Visit Diagnoses Diagnosis Female infertility- Primary Female infertility of unspecified origin documented in this encounter Additional Health Concerns Assessment Noted Time PHQ-2 Depression Total Score: 0 03/23/20 19 10:03 AM EST documented as of this encounter Care Teams Steam Brush Operator Relationship Specialty Start Date End Date Maricel Jain MD [address] [facility], [address] [place] [address] [email or web address] PCP - General 05/14/17 05/20/22 Roc Solares MD [address] [facility], [address] [place] [address] [email or web address] PCP - General Family Medicine 05/21/22 Madai Tejada MD [address] [place] [address] [email or web address] Historical LMR Provider 09/23/14 05/18/21 Husam Doll MD [address] [place] [address] [email or web address] Historical LMR Provider 09/23/14 05/18/21 Cassandra Myers MD Historical LMR Provider 09/23/14 05/18/21 Ana Maldonado MD 65 [place] [address] [email or web address] Historical LMR Provider 06/01/16 05/18/21 Erilnda Rapp [place] [address] Historical LMR Provider 02/23/17 2 Esme Rene, NEUROSURGICAL NURSE PRACTITIONER 1 [place] [address] Historical LMR Provider 02/23/17 2 Primo Elder DO [address] [place] [address] 7 [place] [address] Historical LMR Provider 02/23/17 Ashly Vega NP [address] [place] [address] Historical LMR Provider 02/23/17 2 Lina Suarez CNM [address] [place] [address] Historical LMR Provider 02/23/17 2 Audie Fairchild MD [address] [place] [address] Historical LMR Provider 02/23/17 Ziggy Jose DO [address] [place] [address] Orth[facility]ics [facility] Sports Medicine, [place] [address] Historical LMR Provider 02/23/17 05/18/21 Ernesto Mcallister MD 22 [facility], 2nd [place] [address] Historical LMR Provider 02/23/17 05/18/21 Mathew Cueto MD [address] [place] [address] 7 [place] [address] [email or web address] Historical LMR Provider 02/23/17 Chari Kaur MD [address] [place] [address] Historical LMR Provider 02/23/17 Maricel Jain MD [address] [place] [address] Historical LMR Provider 02/23/17 Jj Blake MD [address] [place] [address] Historical LMR Provider 02/23/17 Tomas Argueta MD [address] [place] [phone] Historical LMR Provider 02/23/17 2 Kristy Pettit MD [address] [place] [address] Orth[facility] Medicine, [place] [address] Historical LMR Provider 02/23/17 Naomi [place] MD [address] [place] [address] Historical LMR Provider 02/23/17 Steve Nieto MD [address] [place] [address] Historical LMR Provider 02/23/17 2 documented as of this encounter Additional Source Comments The information contained in this document represents components of the legal health record. It is not the complete legal health record[facility]
--- OUTSIDE RECORDS SUMMARY | 2025-01-05 08:57 | XMS_ITS | Encounter Summary ---
Author Organization [facility] Address [address] [place] [address] Phone Care Team Providers Care Carpet Loom Fixer Name Role Phone Madai Tejada MD Unavailable [phone] Husam Doll MD Unavailable [phone] Cassandra Myers MD Unavailable Unav ailable Ana Maldonado MD Unavailable [phone] Erlinda Rapp Unavailable [phone] Esme Rene WAREHOUSE AND RECEIVING SUPERVISOR Unavailable Primo Elder DO Unavailable Ashly Vega WAREHOUSE AND RECEIVING SUPERVISOR Unavailable Lina Suarez CNM Unavailable Audie Fairchild MD Unavailable Ziggy Jose DO Unavailable Ernesto Mcallister MD Unavailable Mathew Cueto MD Unavailable Chari Kaur MD Unavailable Maricel Jain MD Unavailable Jj Blake MD Unavailable [phone] Tomas Argueta MD Unavailable [phone] Kristy Pettit MD Unavailable Naomi Morton MD Unavailable Steve Nieto MD Unavailable [phone] Maricel Jain MD Primary Care Provider Roc Solares MD Primary Care Provider [phone] Encounter Details Date Type Department Care Team (Late st Contact Info) Description 10/28/2017 Ancillary Orders Virtual Department 30 [place] [address] Reed Sandoval MD [address] [place] [address] Facet hypertrophy of lumbar region; Degenerative disc disease at L5-S1 level Social History Tobacco Use Types Packs/Day Years [...] [facility] [address] [place] [address] Ami Rico MD [address] [place] [address] Orthopedics & Sports Medicine, [facility] [place] [address] 01/18/2025 10:20 AM EDT Office Visit [facility] [address] [place] [address] [place] [address] Jj Blake MD [address] [place] [address], [address] [place] [address] [email or web address] 09/25/2025 10:00 AM EDT Office Visit [facility] [address] [facility] [address] [place] [address] Hemalatha Givens MD [address] [facility]. 201 [place] [address] [email or web address] documented as of this encounter Visit Diagnoses Diagnosis Facet hypertrophy of lumbar region Degenerative disc disease at L5-S1 level documented in this encounter Additional Health Concerns Assessment Noted Time PHQ-2 Depression Total Score: 0 09/01/19 18 2:54 PM EDT documented as of this encounter Care Teams Carpet Loom Fixer Relationship Specialty Start Date End Date Maricel Jain MD [address] [facility] 7 [place] [address] [email or web address] PCP - General 05/14/17 05/20/22 Roc Solares MD [address] [place] [address] 7 [place] [address] [email or web address] PCP - General Family Medicine 05/21/22 Madai Tejada MD [address] [place] [address] [email or web address] Historical LMR Provider 09/23/14 05/18/21 Husam Doll MD [address] [place] [address] [email or web address] Historical LMR Provider 09/23/14 05/18/21 Cassandra Myers MD Historical LMR Provider 09/23/14 05/18/21 Ana Maldonado MD 65 [place] [address] [email or web address] Historical LMR Provider 06/01/16 05/18/21 Erlinda Rapp PA [facility] [place] [address] Historical LMR Provider 02/23/17 2 Esme Rene NP 1 [place] [address] Historical LMR Provider 02/23/17 2 Primo Elder DO [address] [place] [address] 7 [place] [address] [email or web address] Historical LMR Provider 02/23/17 Ashly Vega NP 29 [place] [address] Historical LMR Provider 02/23/17 2 Lina Suarez CNM 30 [place] [address] Historical LMR Provider 02/23/17 2 Audie Fairchild MD [address] [facility] [address] [place] [address] [email or web address] Historical LMR Provider 02/23/17 Ziggy Jose DO [address] [place] [address] Orthopedics & Sports Medicine, [place] [address] Historical LMR Provider 02/23/17 05/18/21 Ernesto Mcallister MD [address] [place] [address], 2nd [place] [address] Historical LMR Provider 02/23/17 05/18/21 Mathew Cueto MD [address] [place] [phone] [email or web address] Historical LMR Provider 02/23/17 Chari Kaur MD [address] [place] [address] [email or web address] Historical LMR Provider 02/23/17 Maricel Jain MD [address] [place] [address] [email or web address] Historical LMR Provider 02/23/17 Jj Blake MD [address] [place] [address] [email or web address] Historical LMR Provider 02/23/17 Tomas Argueta MD [address] [place] [address] [phone] Historical LMR Provider 02/23/17 2 Kristy Pettit MD [address] [place] [address] Orthopedics [facility] Sports Medicine, [place], [place] [phone] [email or web address] Historical LMR Provider 02/23/17 Naomi Morton MD [address] [place] [address] 7 [place] [address] [email or web address] Historical LMR Provider 02/23/17 Steve Nieto MD [address] [place] [address] Historical LMR Provider 02/23/17 2 documented as of this encounter Additional Source Comments The information contained in this document represents components of the legal health record. It is not the complete legal health record.[facility]
--- OUTSIDE RECORDS SUMMARY | 2025-01-05 08:57 | XMS_ITS | Encounter Summary ---
Author Organization [facility] Address [address] [place] [address] Phone Care Team Providers Care Art Objects Supervisor Name Role Phone Madai Tejada MD Unavailable [phone] Husam Doll MD Unavailable [phone] Cassandra Myers MD Unavailable Unav ailable Ana Maldonado MD Unavailable Erlinda Rapp Unavailable [phone] Esme Rene CAGE TENDER Unavailable Primo Elder DO Unavailable Ashly Vega CAGE TENDER Unavailable Lina Suarez CNM Unavailable Audie Fairchild MD Unavailable Ziggy Jose DO Unavailable Ernesto Mcallister MD Unavailable Mathew Cueto MD Unavailable Chari Kaur MD Unavailable Maricel Jain MD Unavailable [phone] Jj Blake MD Unavailable [phone] Tomas Argueta MD Unavailable [phone] Kristy Pettit MD Unavailable [phone] Naomi Morton MD Unavailable [phone] Steve Nieto MD Unavailable [phone] Maricel Jain MD Primary Care Provider [phone] Roc Solares MD Primary Care Provider [phone] Reason for Referral * MRI/CAT Scan - Closed Specialty Diagnoses / Procedures Referred By Contac t Referred To Contact Radiology Diagnoses Herniated nucleus pulposus, lumbar Procedures MRI Lumbar Spine Reed Sandoval MD [address] [place] [address] Phone: tel: fax: Referral ID Status Reason Start Date Expiration Date Visits Re quested Visits Authorized [id number] Closed 07/21/2017 08/19/2017 1 1 Encounter Details Date Type Department Care Team (Late st Contact Info) Description 07/21/2017 Ancillary Orders Virtual Department 30 [place] [address] Reed Sandoval MD [address] [place] [address] Herniated nucleus pulposus, lumbar Social History Tobacco Use Types Packs/Day Years Used Date Smoking Tobacco: Never Smokeless Tobacco: Never Comments Unknown Sex and Gender Information Value [...] Description 01/10/2025 1:15 PM EDT Office Visit [facility] [address] [place] [address] Ami Rico MD [address] [place] [address] [facility] [place] [address] 01/18/2025 10:20 AM EDT Office Visit [facility] [address] [place] [address] [place] [address] Jj Blake MD 22 [facility], [address] [place] [address] 09/25/2025 10:00 AM EDT Office Visit [facility] [place] [facility] [address] [facility] [address] [place] [address] Hemalatha Givens MD 15 [facility] [place]. 201 [place] [address] [email or web address] documented as of this encounter Results * MRI LUMBAR SPINE (NEURO) WITHOUT CONTRAST (07/29/2017 10:56 AM EDT) Anatomical Region Laterality Modality L-spine Magnetic Resonan ce 07/29/2017 11:1 6 AM EDT Impressions 07/29/2017 11:23 AM EDT No focal disc protrusion, central canal stenosis, or overt neural foraminal compromise, or other significant interval change from 12/01/2016 apparent. POS - [id number] Narrative 07/29/2017 11:23 AM EDT TECHNIQUE: Exam performed on a 1.5 Halina high-field MRI scanner. Sagittal T1, T2 and STIR, axial T1 and T2 sequences were obtained. FINDINGS: Comparison is made with prior MR of 12/01/2016. On the sagittal sequences no focal disc protrusion or central canal stenosis are demonstrated at the T11-12, T12-L1, or L1-2 levels. L2-L3: No focal disc protrusion, central canal stenosis, or significant neural foraminal compromise. L3-L4: No focal disc protrusion, central canal stenosis, or significant neural foraminal compromise. Mild degenerative facet arthropathy. L4-L5: No focal disc protrusion, central canal stenosis, or significant neural foraminal compromise. Mild degenerative facet arthropathy. L5-S1: There is chronic and grossly stable mild broad-based disc bulge minimally eccentric to the left without focal disc protrusion, central canal stenosis, or progressive neural foraminal narrowing. No overt mass effect upon the exiting L5 nerve roots within the foramina. Mild degenerative facet arthropathy. No significant abnormality of vertebral body marrow signal is noted. Visualized portions of the conus are unremarkable. No paraspinal soft tissue mass apparent. Procedure Note Meredith Jacobo MD - 07/29/2017 TECHNIQUE: Exam performed on a 1.5 Halina high-field MRI scanner. SagittalT1, T2 and STIR, axial T1 and T2 sequences were obtained. FINDINGS: Comparison is made with prior MR of 12/01/2016. On the sagittal sequences no focal disc protrusion or central canalstenosis are demonstrated at the T11-12, T12-L1, or L1-2 levels. L2-L3: No focal disc protrusion, central canal stenosis, or significantneural foraminal compromise. L3-L4: No focal disc protrusion, central canal stenosis, or significantneural foraminal compromise. Mild degenerative facet arthropathy. L4-L5: No focal disc protrusion, central canal stenosis, or significantneural foraminal compromise. Mild degenerative facet arthropathy. L5-S1: There is chronic and grossly stable mild broad-based disc bulgeminimally eccentric to the left without focal disc protrusion, centralcanal stenosis, or progressive neural foraminal narrowing. No overt masseffect upon the exiting L5 nerve roots within the foramina. Milddegenerative facet arthropathy. No significant abnormality of vertebral body marrow signal is noted.Visualized portions of the conus are unremarkable. No paraspinal softtissue mass apparent. IMPRESSION: No focal disc protrusion, central canal stenosis, or overt neuralforaminal compromise, or other significant interval change from 12/01/2016apparent. POS - [id number] Reed Sandoval MD IMG MR XSPECIALTY Final Re sult documented in this encounter Visit Diagnoses Diagnosis Herniated nucleus pulposus, lumbar Displacement of lumbar intervertebral disc without myelopathy Herniated nucleus pulposus, lumbar Displacement of lumbar intervertebral disc without myelopathy documented in this encounter Care Teams Art Objects Supervisor Relationship Specialty Start Date End Date Maricel Jain MD [address] [facility], [address] [place] [address] [email or web address] PCP - General 05/14/17 05/20/22 Roc Solares MD [address] [place] [address], [address] [place] [address] [email or web address] PCP - General Family Medicine 05/21/22 Madai Tejada MD [address] [place] [address] [email or web address] Historical LMR Provider 09/23/14 05/18/21 Husam Doll MD [address] [place] [address] [email or web address] Historical LMR Provider 09/23/14 05/18/21 Cassandra Myers MD Historical LMR Provider 09/23/14 05/18/21 Ana Maldonado MD 65 [place] [address] [email or web address] Historical LMR Provider 06/01/16 05/18/21 Erlinda Rapp [place] [address] Historical LMR Provider 02/23/17 2 Esme Rene NP 1 [place] [address] Historical LMR Provider 02/23/17 2 Primo Elder DO [address] [place] [address] 7 [place] [address] Historical LMR Provider 02/23/17 Ashly Vega NP [address] [place] [address] Historical LMR Provider 02/23/17 2 Lina Suarez CNM [address] [place] [address] Historical LMR Provider 02/23/17 2 Audie Fairchild MD [address] [place] [address] Historical LMR Provider 02/23/17 Ziggy Jose DO [address] [place] [address] Orthopedics & Sports Medicine, [place] [address] Historical LMR Provider 02/23/17 05/18/21 Ernesto Mcallister MD 22 [facility], 2nd [place] [address] Historical LMR Provider 02/23/17 05/18/21 Mathew Cueto MD [address] [place] [address] 7 [place] [address] [email or web address] Historical LMR Provider 02/23/17 Chari Kaur MD [address] [place] [address] Historical LMR Provider 02/23/17 Maricel Jain MD [address] [place] [address] Historical LMR Provider 02/23/17 Jj Blake MD [address] [place] [address] Historical LMR Provider 02/23/17 Tomas Argueta MD [address] [place] [address] [phone] Historical LMR Provider 02/23/17 2 Kristy Pettit MD [address] [place] [address] Orthopedics & Sports Medicine, [place] [address] Historical LMR Provider 02/23/17 Naomi Morton MD [address] [place] [address] Historical LMR Provider 02/23/17 Steve Nieto MD [address] [place] [address] Historical LMR Provider 02/23/17 2 documented as of this encounter Additional Source Comments The information contained in this document represents components of the legal health record. It is not the complete legal health record.[facility]
--- OUTSIDE RECORDS SUMMARY | 2025-01-05 08:57 | XMS_ITS | Encounter Summary ---
Author Organization [facility] Address [address] [place] [address] Phone Care Team Providers Care Line Construction Supervisor Name Role Phone Madai Tejada MD Unavailable [phone] Husam Doll MD Unavailable [phone] Cassandra Myers MD Unavailable Unav ailable Ana Maldonado MD Unavailable Erlinda Rapp Unavailable [phone] Esme Rene LABORER PLUMBING Unavailable Primo Elder DO Unavailable Ashly Vega LABORER [employer]UM[employer] Unavailable [phone] Lina Suarez CNM Unavailable Audie Fairchild MD Unavailable Ziggy Jose DO Unavailable Ernesto Mcallister MD Unavailable [phone] Mathew Cueto MD Unavailable Chari Kaur MD Unavailable Maricel Jain MD Unavailable [phone] Jj Blake MD Unavailable Tomas Argueta MD Unavailable [phone] Kristy Pettit MD Unavailable [phone] Naomi Morton MD Unavailable [phone] Steve Nieto MD Unavailable [phone] Maricel Jain MD Primary Care Provider Roc Solares MD Primary Care Provider [phone] Encounter Details Date Type Department Care Team (Late Contact Info) Description 10/28/2017 Ancillary Orders Virtual Department 30 [place] [address] Reed Sandoval MD [address] [place] [address] Social History Tobacco Use Types Packs/Day Years [...] [facility] [address] [place] [address] Ami Rico MD [address] [place] [address] Orthopedics & Sports Medicine, [facility] [place] [address] 01/18/2025 10:20 AM EDT Office Visit [facility] [address] [place] [address] [place] [address] Jj Blake MD [address] [place] [address], [address] [place] [address] 09/25/2025 10:00 AM EDT [facility] [place] [facility] 15 [facility] [address] [place] [address] Hemalatha Givens MD 15 [facility]. 201 [place] [address] [email or web address] documented as of this encounter Visit Diagnoses Not on filedocumented in this encounter Additional Health Concerns Assessment Noted Time PHQ-2 Depression Total Score: 0 09/01/19 18 2:54 PM EDT documented as of this encounter Care Teams Line Construction Supervisor Relationship Specialty Start Date End Date Maricel Jain MD 234 [facility] 7 [place] [address] [email or web address] PCP - General 05/14/17 05/20/22 Roc Solares MD [address] [place] [address] 7 [place] [address] [email or web address] PCP - General Family Medicine 05/21/22 Madai Tejada MD [address] [place] [address] [email or web address] Historical LMR Provider 09/23/14 05/18/21 Husam Doll MD [address] [place] [address] [email or web address] Historical LMR Provider 09/23/14 05/18/21 Cassandra Myers MD Historical LMR Provider 09/23/14 05/18/21 Ana Maldonado MD 65 [place] [address] [email or web address] U Historical LMR Provider 06/01/16 05/18/21 Erlinda Rapp PA [facility] [address] Historical LMR Provider 02/23/17 2 Esme Rene NP 1 [place] [address] Historical LMR Provider 02/23/17 2 Primo Elder DO [address] [place] [address] 7 [place] [address] Historical LMR Provider 02/23/17 Ashly Vega NP 29 [place] [address] Historical LMR Provider 02/23/17 2 Lina Suarez CNM 30 [place] [address] Historical LMR Provider 02/23/17 2 Audie Fairchild MD [address] [facility] [address] [place] [address] Historical LMR Provider 02/23/17 Ziggy Jose DO [address] [place] [address] Orthopedics & Sports Medicine, [place] [address] Historical LMR Provider 02/23/17 05/18/21 Ernesto Mcallister MD [address] [place] [address], 2nd [place] [address] Historical LMR Provider 02/23/17 05/18/21 Mathew Cueto MD [address] [place] [address] [phone] [email or web address] Historical LMR Provider 02/23/17 Chari Kaur MD [address] [place] [address] [email or web address] Historical LMR Provider 02/23/17 Maricel Jain MD [address] [place] [address] [email or web address] Historical LMR Provider 02/23/17 Jj Blake MD [address] [place] [address] Historical LMR Provider 02/23/17 Tomas Argueta MD [address] [place] [address] [phone] Historical LMR Provider 02/23/17 Kristy Ponce MD [address] [place] [address] Orthopedics [facility] Sports Medicine, [place], [place] [phone] Historical LMR Provider 02/23/17 Naomi [place] MD [address] [place] [address] 7 [place] [address] [email or web address] Historical LMR Provider 02/23/17 Steve Nieto MD 61 [place] [address] Historical LMR Provider 02/23/17 2 documented as of this encounter Additional Source Comments The information contained in this document represents components of the legal health record. It is not the complete legal health record.[facility]
--- OUTSIDE RECORDS SUMMARY | 2025-01-05 08:57 | XMS_ITS | Encounter Summary ---
Author Organization [facility] Address [address] [place] [address] Phone Care Team Providers Care Neuropsychology Service Director Name Role Phone Madai Tejada MD Unavailable [phone] Husam Doll MD Unavailable [phone] Cassandra Myers MD Unavailable Unav ailable Ana Maldonado MD Unavailable Erlinda Rapp Unavailable [phone] Esme Rene STRATEGIC ACCOUNTS MANAGER Unavailable Primo Elder DO Unavailable Ashly Vega STRATEGIC ACCOUNTS MANAGER Unavailable Lina Suarez CNM Unavailable Audie Fairchild MD Unavailable Ziggy Jose DO Unavailable Ernesto Mcallister MD Unavailable Mathew Cueto MD Unavailable Chari Kaur MD Unavailable Maricel Jain MD Unavailable Jj Blake MD Unavailable [phone] Tomas Argueta MD Unavailable Kristy Pettit MD Unavailable [phone] Naomi Morton MD Unavailable [phone] Steve Nieto MD Unavailable [phone] Maricel Jain MD Primary Care Provider [phone] Roc Solares MD Primary Care Provider [phone] Encounter Details Date Type Department Care Team (Late st Contact Info) Description 11/04/2017 Procedure Pass [facility], [address] [place] [address] Social History Tobacco Use Types Packs/Day Years [...] [facility]ics & Sports Medicine [address] [place] [address] Ami Rico MD [address] [place] [address] Orthopedics & Sports Medicine, [facility] [place] [address] 01/18/2025 10:20 AM EDT Office Visit [facility] OBGYN & Midwifery [address] [place] [address] [place] [address] Jj Blake MD [address] [place] [address], [facility] [address] [place] [address] 09/25/2025 10:00 AM EDT Office Visit [facility] [address] [place] [address] [address] [place] [address] Hemalatha Givens MD 15 [facility] [place]. [address] [place] [address] [email or web address] documented as of this encounter Visit Diagnoses Not on filedocumented in this encounter Additional Health Concerns Assessment Noted Time PHQ-2 Depression Total Score: 0 09/01/19 18 2:54 PM EDT documented as of this encounter Care Teams Neuropsychology Service Director Relationship Specialty Start Date End Date Maricel Jain MD 234 [facility] 7 [place] [address] [email or web address] PCP - General 05/14/17 05/20/22 Roc Solares MD [address] [place] [address] 7 [place] [address] [email or web address] PCP - General Family Medicine 05/21/22 Madai Tejada MD [address] [place] [id number] [email or web address] Historical LMR Provider 09/23/14 05/18/21 Husam Doll MD [address] [place] [address] [email or web address] Historical LMR Provider 09/23/14 05/18/21 Cassandra Myers MD Historical LMR Provider 09/23/14 05/18/21 Ana Maldonado MD [address] [place] [address] [email or web address] Historical LMR Provider 06/01/16 05/18/21 Erlinda Rapp PA [facility] [place] [address] Historical LMR Provider 02/23/17 2 Esme Rene NP 1 [place] [address] Historical LMR Provider 02/23/17 2 Primo Elder DO [address] [place] [address] 7 [place] [address] [email or web address] Historical LMR Provider 02/23/17 Ashly Vega NP [address] [place] [address] Historical LMR Provider 02/23/17 2 Lina Suarez CNM 30 [place] [address] Historical LMR Provider 02/23/17 2 Audie Fairchild MD [address] [address] Historical LMR Provider 02/23/17 Ziggy Jose DO [address] [place] [address] Orthopedics & Sports Medicine, [place] [address] Historical LMR Provider 02/23/17 05/18/21 Ernesto Mcallister MD 22 [facility], 2nd [place] [address] [email or web address] Historical LMR Provider 02/23/17 05/18/21 Mathew Cueto MD [address] [place] [address] [phone] [email or web address] Historical LMR Provider 02/23/17 Chari Kaur MD [address] [place] [address] [email or web address] Historical LMR Provider 02/23/17 Maricel Jain MD [address] [place] [address] [email or web address] Historical LMR Provider 02/23/17 Jj Blake MD [address] [place] [address] [email or web address] Historical LMR Provider 02/23/17 Tomas Argueta MD [address] [place] [address] [phone] Historical LMR Provider 02/23/17 2 Kristy Pettit MD [address] [place] [address] Orthopedics & Sports Medicine, [facility]. [place], [place] [phone] [email or web address] Historical LMR Provider 02/23/17 Naomi Morton MD [address] [place] [address] [email or web address] Historical LMR Provider 02/23/17 Steve Nieto MD [address] [place] [address] Historical LMR Provider 02/23/17 2 documented as of this encounter Additional Source Comments The information contained in this document represents components of the legal health record. It is not the complete legal health record.[facility]
--- OUTSIDE RECORDS SUMMARY | 2025-01-05 08:57 | XMS_ITS | Encounter Summary ---
Author Organization [facility] Address [address] [place] [address] Phone Care Team Providers Care Estimator Jewelry Name Role Phone Madai Tejada MD Unavailable [phone] Husam Doll MD Unavailable [phone] Cassandra Myers MD Unavailable Unav ailable Ana Maldonado MD Unavailable Erlinda Rapp Unavailable [phone] Esme Rene HOSPITAL [employer]ES [employer] ASSISTANT[employer] TEACHER Unavailable Primo Elder DO Unavailable Ashly Vega HOSPITAL AIDES AND ASSISTANTS TEACHER Unavailable Lina Suarez CNM Unavailable Audie Fairchild MD Unavailable Ziggy Jose DO Unavailable Ernesto Mcallister MD Unavailable Mathew Cueto MD Unavailable [phone] Chari Kaur MD Unavailable Maricel Jain MD Unavailable [phone] Jj Blake MD Unavailable Tomas Argueta MD Unavailable Kristy Pettit MD Unavailable [phone] Naomi Morton MD Unavailable [phone] Steve Nieto MD Unavailable [phone] Maricel Jain MD Primary Care Provider [phone] Roc Solares MD Primary Care Provider [phone] Encounter Details Date Type Department Care Team (Late Contact Info) Description 07/21/2017 Procedure Pass [facility], [address] [place] [address] Social History Tobacco Use Types Packs/Day Years Used Date Smoking Tobacco: Never Smokeless Tobacco: Never Comments Unknown Sex and Gender Information Value Date Recorded Sex Assigned at Female 06/25/2024 6:42 PM EST Legal Sex Female 4:05 PM EST Gender Identity Female 06/25/2024 6:42 PM EST Sexual Orientation Straight 06/25/2024 6: 42 PM EST documented as of this encounter Last Filed Vital Signs Vital Sign Reading Time Taken Comments Blood Pressure - - Pulse - - Temperature - - Respiratory Rate - - Oxygen Saturation - - Inhaled Oxygen Concentration - - Weight 49.9 kg (110 lb) 07/23/2017 5:39 PM EDT Height 165.1 cm (5' 5 ) 07/23/2017 5:39 PM EDT Body Mass Index 18.3 07/23/2017 5:39 PM EDT documented in this encounter Plan of Treatment Upcoming Encounters Date Type Department Care Team ([facility] Contact Info) Description 01/10/2025 1:15 PM EDT Office Visit [facility] Orthopedics & Sports Medicine [address] [place] [address] Ami Rico MD [address] [place] [address] Orthopedics & Sports Medicine, [facility] [place] [address] 01/18/2025 10:20 AM EDT Office Visit [facility] OBGYN & Midwifery [address] [place] [address] [place] [address] Jj Blake MD 22 [facility], [address] [place] [address] [email or web address] 09/25/2025 10:00 AM EDT Office Visit [facility] [address] [facility] [address] [place] [address] Hemalatha Givens MD 15 [facility] [place]. 201 [place] [address] [email or web address] documented as of this encounter Visit Diagnoses Not on filedocumented in this encounter Care Teams Estimator Jewelry Relationship Specialty Start Date End Date Maricel Jain MD 234 [facility] 7 [place] [address] [email or web address] PCP - General 05/14/17 05/20/22 Roc Solarse MD 234 [facility] 7 [place] [address] [email or web address] PCP - General Family Medicine 05/21/22 Madai Tejada MD [address] [place] [address] [email or web address] Historical LMR Provider 09/23/14 05/18/21 Husam Doll MD [address] [place] [address] [email or web address] Historical LMR Provider 09/23/14 05/18/21 Cassandra Myers MD Historical LMR Provider 09/23/14 05/18/21 Ana Maldonado MD [address] [place] [address] [email or web address] Historical LMR Provider 06/01/16 05/18/21 Erlinda Rapp PA [facility] [place] [address] Historical LMR Provider 02/23/17 2 Esme Rene NP 1 [place] [address] Historical LMR Provider 02/23/17 2 Primo Elder DO [address] [place] [address] 7 [place] [address] Historical LMR Provider 02/23/17 Ashly Veag NP 29 [place] [address] Historical LMR Provider 02/23/17 2 Lina Suarez CNM 30 [place] [address] Historical LMR Provider 02/23/17 2 Audie Fairchild MD 22 [facility] [address] [place] [address] Historical LMR Provider 02/23/17 Ziggy Jose DO [address] [place] [address] Orthopedics & Sports Medicine, [facility] [place] [address] Historical LMR Provider 02/23/17 05/18/21 Ernesto Mcallister MD [address] [place] [address], 2[address] [place] [address] Historical LMR Provider 02/23/17 05/18/21 Mathew Cueto MD [address] [place] [address] [phone] [email or web address] Historical LMR Provider 02/23/17 Chari Kaur MD [address] [place] [address] [email or web address] Historical LMR Provider 02/23/17 Maricel Jain MD [address] [place] [address] [email or web address] Historical LMR Provider 02/23/17 Jj Blake MD [address] [place] [address] Historical LMR Provider 02/23/17 Tomas Argueta MD [address] [place] [address] [phone] Historical LMR Provider 02/23/17 Kristy [place] MD [address] [place] [address] Orthopedics & Sports Medicine, [place], [place] [phone] [email or web address] Historical LMR Provider 02/23/17 Naomi Morton MD [address] [place] [address] 7 [place] [address] [email or web address] Historical LMR Provider 02/23/17 Steve Nieto MD [address] [place] [address] Historical LMR Provider 02/23/17 2 documented as of this encounter Additional Source Comments The information contained in this document represents components of the legal health record. It is not the complete legal health record.[facility]
--- OUTSIDE RECORDS SUMMARY | 2025-01-05 08:57 | XMS_ITS | Clinical Summary ---
Author Organization [facility] Address [address] [place] [address] Phone Care Team Providers Care Thermodynamic Physicist Name Role Phone Primo Elder DO Unavailable Audie Fairchild MD Unavailable Mathew Cueto MD Unavailable [phone] Chari Kaur MD Unavailable Maricel Jain MD Unavailable [phone] Jj Blake MD Unavailable [phone] Naomi Morton MD Unavailable Roc Solares MD Primary Care Provider [phone] Allergies No known active allergies Medications diazePAM (VALIUM) 5 MG tabletIndicatio ns:Chronic left-sided thoracic back pain Take 1 tablet (5 mg total) by mouth nightly at bedtime as needed for anxiety. 28 tablet 2 04/21/2024 Active Active Problems Patient Care Coordination No te Formatting of this note migh t be different from the original. Isaiah was referred to the [facility] by herself for a second opinion due to abnormal microarray results from amniocentesis She is a 38 yo EDC=03/16/2020 She is and spouse name: Jean Claude US at 19 weeks showed no abnormal findings: normal survey Consults and imagin11.03.2019 genetic consult with Yany Burnette: Problem Noted Date Diagnosed Date Fracture, Col[place], right, closed 07/06/2024 [place] eye disease of left eye 05/13/2024 Assessment & Plan (05/13/2024 9:20 AM EST): I diagnosed Isaiah with left eye conjunctivitis and I treated her with Polytrim eyedrops. She was recently treated for 2 months previous conjunctivitis with erythromycin thus I want to change the antibiotic today. I also advised her not to wear contacts for a month. I gave additional symptomatic management with warm washcloth and Tylenol/ibuprofen with food as needed for pain discomfort. I informed her to call if there are any other issues or concerns or if this does not improve. She understands and agrees.- Subacute cough 06/15/2023 Assessment & Plan (06/15/2023 2:50 PM EST): No indicated for covid or flu testing given duration. Prolonged viral cough, likely bronchitis. Will do a burst of prednisone as there are some scattered wheezes. Follow up if not improving or symptoms worse. Chronic left-sided low back pain without sciatic a 12/09/2018 Chronic back pain 08/30/2017 Overview (08/31/2017): Chronic left lower back pain since receiving PT for her clavicle and scapula injury in 2013. Has had injections without relief. Assessment & Plan (06/10/2022 2:12 PM EST): Patient with chronic left lower back pain and clavicle pain after her injury in 2013. She has had injections without relief and has tried physical therapy but continues to have pain. She only uses the diazepam occasionally (approximately twice a week) and tolerates it well. Plan is to continue using the diazepam sparingly and follow- up for routine care. Fracture of clavicle 11/17/2013 Overview (05/20/2018): Fracture of clavicle 2013. Has had 3 revision surgeries. Has chronic pain since the original surgery. She has tried multiple treatment modalities, medications, and has gone to the [facility] pain clinic. Chronic pain persisting. Resolved Problems Problem Noted Date Diagnosed Date Resolved Date Ingrown nail 02/19/2021 02/28/2022 Paronychia of great toe of right foot 01/02/2021 02/28/2022 Assessment & Plan (01/02/2021 4:23 PM EDT): Isaiah was diagnosed with paronychia of the right great toe and I wrote for Keflex today-to be taken as directed. Also advised her to soak the foot in Epson salt and if this does not get better if this gets worse to see a corporate travel consultant to help with the ingrowing toenail on the lateral aspect. She will call if there is any other issues or concerns. She understands and agrees. Delivery by elective section 03/14/2020 02/28/2022 High risk due to a ssisted reproductive technology, antepartum 03/14/202002/09 Overview (03/14/2020): conceived with FHS/[facility]MG and IUI Asymptomatic bacteriuria dur ing in third trimester 02/27/2020 02/28/2022 Overview (02/27/2020): 12/22/2019, 02/24/2020-E. Faecalis pansensitive. December treated with amoxicillin. February treated nitrofurantoin. Assessment & Plan (02/27/2020 3:51 PM EDT): KVNG/repeat urine-continues with E. Faecalis. Sensitive to amoxicillin and nitrofurantoin. Plan nitrofurantoin twice daily x5 days. 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 Continues zofran and diclegis through this Assessment & Plan (02/27/2020 4:14 PM EDT): Continues zofran and diclegis through this Assessment & Plan (11/25/2019 5:26 PM EDT): Refill zofran today Assessment & Plan (09/08/2019 12:06 PM EDT): Patient finds symptoms are very well controlled on current medication regimen utilizing Diclegis and ondansetron. 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 09/08/2019 Overview (06/30/2014): Nonunion of fracture; Left; clavicle Encounters Date Type Department Care Team Description 01/03/2025 Telephone [facility] [address] [place] [address] Unknown, Unknown, Appointment 10/20/2024 12:18 PM EDT - 10/20/2024 11:59 PM EDT Hospital Encounter [facility] - [address] [place] [address] Audie Fairchild MD Discharge Disposition: Home or Self Care 10/10/2024 1:30 PM EDT Office Visit [facility] [address] [place] [address] Ami Rico MD Sayles, Jennifer, OT Other closed intra-articular fracture of distal end of right radius with routine healing, subsequent encounter (Primary Dx) from Last 3 Months Immunizations Immunization Administration Dates Next Due HPV9 04/21/2024 INFLUENZA, SPLIT VIRUS, TRIVALENT PF 04/21/2024 Influenza Quadrivalent Prese rvative Free IM 02/06/2023,01/30/2022,03/03/2021,2019,02/12/2018,02/27/2017,03/01/2015 Influenza Quadrivalent w/ Preservative IM 03/07/2016 Influenza Recombinant Elly valent Preservative Free IM 03/23/2019 Influenza trivalent preserva tive free intradermal 03/01/2013 Tdap 01/12/2020,02/12/2015,08/18/2012 Varicella 11/25/2017,10/14/2017 Family History Medical History Relation Comments Coronary artery disease Father Neurological disorder Father Neuromyeli tis optica Relation Status Comments Brother Alive Father Alive Maternal Grandfather Maternal Grandmother Mother Alive Paternal Grandfather Paternal Grandmother Social History Tobacco Use Types Packs/Day Years [...] high school, GED, job training, learning the [place] language, technical skills, or developing parenting skills)? [...] file Not on file Not on file Last Filed Vital Signs Vital Sign Reading Time Taken Comments Blood Pressure 150/93 07/06/2024 4:00 PM EST Pulse 100 07/06/2024 3:45 PM EST Temperature 36.6 C (97.9 F) 07/06/2024 2:05 PM EST Respiratory Rate 12 07/06/2024 3:45 PM EST Oxygen Saturation 97% 07/06/2024 4:00 PM EST Inhaled Oxygen Concentration - - Weight 55.3 kg (122 lb) 07/06/2024 11:45 AM EST Height 167.6 cm (5' 6 ) 07/06/2024 11:45 AM EST Body Mass Index 19.69 07/06/2024 11:45 AM EST Plan of Treatment Upcoming Encounters Date Type Department Care Team (Late st Contact Info) Description 01/10/2025 1:15 PM EDT Office Visit [facility] [address] [place] [phone] Ami Rico MD [address] [place] [address] Orthopedics & Sports Medicine, [place] [address] 01/18/2025 10:20 AM EDT Office Visit [facility] [address] [place] [address] [place] [address] Jj Blake MD [address], [address] [place] [address] [email or web address] 09/25/2025 10:00 AM EDT Office Visit [facility] [address] [place] [address] Hemalatha Givens MD [address] [place] [place] [address] [email or web address] Health Maintenance Due Date Last Done Comments INFLUENZA VACCINE (#1) 2024 , 02/06/2023, 01/30/2022, Additional history exists COLOGUARD 12/13/2024 COLONOSCOPY 12/13/2024 COLORECTAL CANCER SCREENING 12/13/2024 FIT TEST 12/13/2024 FOBT 12/13/2024 SIGMOIDOSCOPY 12/13/2024 VIRTUAL COLONOSCOPY 12/13/2024 DEPRESSION SCREENING 04/21/2025 04/21/2024 MAMMOGRAM 09/27/2026 09/27/2024 PAP SMEAR 04/06/2027 04/06/2024, 08/10, 08/31/2017 LIPID PANEL 10/08/2027 10/07/2022, 09/10/2017 Adult Td,Tdap Booster 01/11/2030 01/12/2020 , 02/12/2015, 08/18/2012 HEPATITIS C SCREENING Completed 03/29/2019 HIV ONE-TIME SCREENING (18-65 YEARS) Completed 03/29/2019, 09/22/2014 COVID-19 VACCINE Completed 05/18/2024, , 01/30/2022, Additional history exists SMOKING STATUS SCREENING (Once After 26 Yrs) Completed 09/27/2024 HEPATITIS A VACCINES Aged Out No long er eligible based on patient's age to complete this topic HIB VACCINES Aged Out No longer eligi ble based on patient's age to complete this topic MENINGOCOCCAL VACCINES (ACWY) Aged Out No longer eligible based on patient's age to complete this topic MENINGOCOCCAL VACCINES (B) Aged Out N o longer eligible based on patient's age to complete this topic PNEUMOCOCCAL VACCINES (0-49 years) Aged Out No longer eligible based on patient's age to complete this topic Medical Devices Implanted Type Area Machinist Brake Device Identifier Shelf Expiration Date Model / Serial / Lot Screw Bone 2.4x18mm Variax 2 T8 Locking Fully Threaded Mini - [id number] Implanted:Qty: 4 on 07/06/2024 by Ami Rico MD at [facility] Right: Wrist [employer] [id number] / / Screw Bone 2.7x12mm Variax 2 T8 Locking Fully Threaded Mini - [id number] Implanted:Qty: 1 on 07/06/2024 by Ami Rico MD at [facility] Right: Wrist [employer] [id number] / / Variax 2 Plate 54 Mm 4 Hole Implanted:Qty: 1 on 07/06/2024 by Ami Rico MD at [facility] Right: Wrist [employer] [id number] / / Screw Bone 2.4x16mm Variax 2 T8 Locking Fully Threaded Mini - [id number] Implanted:Qty: 2 on 07/06/2024 by Ami Rico MD at [facility] Right: Wrist [employer] [id number] / / Screw Bone 2.7x10mm Variax 2 T8 Non Locking Fully Threaded Mini [id number] - [id number] Implanted:Qty: 1 on 07/06/2024 by Ami Rico MD at [facility] Right: Wrist [employer] [id number] / / Screw Bone 2.7x10mm Variax 2 T8 Locking Fully Threaded Mini - [id number] Implanted:Qty: 2 on 07/06/2024 by Ami Rico MD at [facility] Right: Wrist [employer] [id number] / / Screw Bone 2.7x12mm Variax 2 T8 Locking Fully Threaded Mini - [id number] Implanted:Qty: 1 on 07/06/2024 by Ami Rico MD at [facility] Right: Wrist [employer] [id number] / / Screw Bone 2.7x12mm Variax 2 T8 Non Locking Fully Threaded Mini [id number] - [id number] Implanted:Qty: 1 on 07/06/2024 by Ami Rico MD at [facility] Right: Wrist [employer] [id number] / / Procedures Procedure Name Priority Date/Time Associated Diagnosis Comments BI MAMMOGRAM DIAGNOSTIC WITH TOMOSYNTHESIS WITH CAD (LEFT) Routine 10/20/2024 12:34 PM EDT Abnormal mammogram BI MAMMOGRAM SCREENING WITH TOMOSYNTHESIS WITH CAD (BILATERAL) Routine 09/27/2024 11:00 AM EDT Encounter for screening mammogram for malignant neoplasm of breast PAP TEST Routine 04/06/2024 12:00 AM EST LIPID PANEL Routine 10/07/2022 11:49 AM EDT Annual physical exam HEPATITIS C ANTIBODY, QUALITATIVE Routine 03/29/2019 2:32 PM EST Female infertility OUTSIDE HIV Routine 09/22/2014 from Last 3 Months or Most Recently Relevant to Health Maintenance Results * BI MAMMOGRAM DIAGNOSTIC WITH TOMOSYNTHESIS WITH CAD (LEFT) (10/20/2024 12:34 PM EDT) Anatomical Region Laterality Modality Breast Left Left Mammography 10/20/2024 12:3 5 PM EDT Impressions 10/20/2024 12:47 PM EDT No findings suspicious for malignancy. Bilateral screening mammography recommended in one year. BI-RADS 2 BENIGN Results and recommendations were communicated to the patient at time of examination. Narrative 10/20/2024 12:47 PM EDT BI MAMMOGRAM DIAGNOSTIC WITH TOMOSYNTHESIS WITH CAD (LEFT) Additional patient information: COMPARISON: Comparison is made with relevant prior imaging. Breast composition: The breasts are heterogeneously dense, which may obscure small masses. FINDINGS: Left Mammogram: The asymmetry in the central left breast on MLO screening view of 09/27/2024 does not persist and is consistent with superimposed fibroglandular tissue. No evidence of suspicious mass or architectural distortion. us Audie Fairchild MD IMG MG EXAMS Final Result * (ABNORMAL) BI MAMMOGRAM SCREENING WITH TOMOSYNTHESIS WITH CAD (BILATERAL) (09/27/2024 11:00 AM EDT) Anatomical Region Laterality Modality Breast Left, Breast Right, Breast Bilateral Bila teral Mammography 09/28/2024 9:20 AM EDT Impressions 09/28/2024 9:22 AM EDT 1. Asymmetry in the left breast for which additional imaging is recommended with diagnostic mammography and possible ultrasound. 2. No mammographic evidence of malignancy in the right breast. BI-RADS 0 INCOMPLETE Needs additional imaging evaluation The patient will be notified of the results and recommendations. The mammography department will contact the patient to arrange for the additional imaging. Narrative 09/28/2024 9:22 AM EDT BI MAMMOGRAM SCREENING WITH TOMOSYNTHESIS WITH CAD (BILATERAL) Additional patient information: Screening. COMPARISON: This is a baseline examination. Breast composition: The breasts are heterogeneously dense, which may obscure small masses. FINDINGS: Right No abnormal masses, suspicious calcifications, or other significant findings are identified mammographically in the right breast. Left An asymmetry is present on MLO view in the central left breast at middle depth. Procedure Note Marcela Hartley MD - 09/28/2024 BI MAMMOGRAM SCREENING WITH TOMOSYNTHESIS WITH CAD (BILATERAL) Additional patient information: Screening. COMPARISON: This is a baseline examination. Breast composition: The breasts are heterogeneously dense, which mayobscure small masses. FINDINGS: Right No abnormal masses, suspicious calcifications, or other significantfindings are identified mammographically in the right breast. Left An asymmetry is present on MLO view in the central left breast at middledepth. IMPRESSION: 1. Asymmetry in the left breast for which additional imaging isrecommended with diagnostic mammography and possible ultrasound. 2. No mammographic evidence of malignancy in the right breast. BI-RADS 0 INCOMPLETE Needs additional imaging evaluation The patient will be notified of the results and recommendations. Themammography department will contact the patient to arrange for theadditional imaging. us Audie Fairchild MD IMG MG EXAMS Final Result * Pap Test (04/06/2024 12:00 AM EST) 04/06/2024 04/11/2024 9:3 4 AM EST Narrative SEE NARRATIVE - 04/13/2024 9:15 [place] [address] Cut Off Saw Operator Metal: Dave Del Angel MD STONE TRIMMER Cytology Report FINAL DIAGNOSIS A. PAP SMEAR (THIN PREP) CE: SPECIMEN ADEQUACY: Satisfactory for evaluation; transformation zone present. INTERPRETATION: NEGATIVE FOR INTRAEPITHELIAL LESION OR MALIGNANCY. This specimen was analyzed by the automated ThinPrep Imaging System ([employer] and the selected duran were reviewed by a data integration developer. Electronically Signed Out By: IRINA Galdamez(ASCP) The Pap test is a screening test primarily for squamous cancers and precursors and has associated false-negative and false-positive results. New technologies such as liquid-based preparations may decrease but will not eliminate all false-negative results. Regular sampling and follow-up of unexplained clinical signs and symptoms are recommended to minimize false negative results. PROCEDURES/ADDENDA HPV Testing (Requested) Ordered Date: 04/11/2024 A. PAP SMEAR (THIN PREP) CE: High-risk HPV Panel w/ extended genotyping NEG HPV 16-NEG HPV 18-NEG HPV 45-NEG HPV 33/58-NEG HPV 31-NEG HPV 56/59/66-NEG HPV 51-NEG HPV 52-NEG HPV 35/39/68-NEG Performed by real-time polymerase chain reaction (PCR) at [facility], [address] [place] [address] using the FDA-approved BD Onclarity9 HPV Assay with extended genotyping. Uses of the assay in scenarios other than those approved by the FDA should be considered off-label use. The accuracy and precision of this test for all other off-label specimen sources has been verified in the Cytopathology Laboratory of the [facility] and has not been cleared or approved by the U.S. Food and Drug Administration. Clinical correlation is advised. The assay assesses the E6/E7 DNA target and utilizes human beta globin as an internal control. Cytology and HPV testing are screening assays and should not be used as the sole means of detecting cancer. False-positives and false-negatives can occur. CLINICAL HISTORY Date of Last Menstrual Period: 03-27-2024 Other Clinical Conditions: Screening Pap SPECIMEN SOURCE A: PAP SMEAR (THIN PREP) CE Patient Name: ISAIAH GUEVARA : 1980 (Age: 43) Sex: F Institution: [facility] Location: [facility] Date of Collection: 04/06/2024 Date of Reported: 04/13/2024 09:15 Results to: Audie Fairchild MD Audie Fairchild MD CYTOLOGY ORDERABLES Final Result SEE NARRATIVE * (ABNORMAL) Lipid panel (10/07/2022 11:49 AM EDT) HDL 58 mg/dL [facility] Comment: Interpretation <40 mg/dL: Low HDL cholesterol (major risk factor for CHD) Greater than or equal to 60 mg/dL: High HDL cholesterol ( negative risk factor for CHD) HDL - cholesterol is affected by a number of factors, e.g. smoking, excerise, hormones, sex and age. CHOLESTEROL 178 0 - 240 mg/dL [facility] TRIGLYCERIDES 117 30 - 160 mg/dL [facility] LDL 97 50 - 129 mg/dL [facility] Comment: LDL levels in terms of risk for coronary heart disease: <100 mg/dL: Optimal 100-129 mg/dL: Near or above optimal 130-159 mg/dL: Borderline high 160-189 mg/dL: High >190 mg/dL: Very High CARDIAC RISK RATIO 3.1(L) 3.3 - 4.4 C [facility] Blood 10/07/2022 11:4 9 AM EDT 10/07/2022 11:54 AM EDT us Roc Solares MD LAB BLOOD ORDERABLES Final Resul t Performing Organization Address [facility]/ZIP Co de Phone Number [address] [address] * Hepatitis C antibody, qualitative (03/29/2019 2:32 PM EST) HCV NON-REACTIV E NON-REACTI VE [facility] Blood 03/29/2019 2:32 PM EST 03/29/2019 2:49 PM EST us Mathew Jewell MD LAB BLOOD ORDERABLES Final Resu lt Performing Organization Address [facility] Co de Phone Number [address] [address] * OUTSIDE HIV TEST (09/22/2014) HIV - External Neg us Historical Provider LAB BLOOD ORDERABLES Blanca l Result from Last 3 Months or Most Recently Relevant to Health Maintenance Insurance [employer] PLUS PPO Jeremy REYNA [place] [employer] PLUS PPO [place] [employer] [place] [place] [employer] [place] [employer] [place] Jeremy [place] [email or web address] PLUS P[place] Jeremy [place] [email or web address] PLUS PPO [facility] PLUS PPO Advance Directives For more information, please contact: [phone] (9AM - 5PM [facility], Thursday-Thursday) * Full Code (Latest Code Status on File) Date Activated Date Inactivated Comments 03/14/2020 9:20 AM Question Answer Comments Code Status Confirmed With: Patient Code Status Communicated To: Inpatient Attending * Full Code Date Activated Date Inactivated Comments 03/14/2020 6:08 AM 03/14/2020 9:20 AM Question Answer Comments Code Status Confirmed With: Patient Code Status Communicated To: Inpatient Attending Care Teams Thermodynamic Physicist Relationship Specialty Start Date End Date Roc Solares MD [address] [place] [address] [address] [place] [address] [email or web address] PCP - General Family Medicine 05/21/22 Primo Elder DO [address] [place] [address] 7 [place] [address] Historical LMR Provider 02/23/17 Audie Fairchild MD [address] [address] [email or web address] Historical LMR Provider 02/23/17 Mathew Cueto MD [address] [place] [phone] [email or web address] Historical LMR Provider 02/23/17 Chari Kaur MD [address] [place] [phone] [email or web address] Historical LMR Provider 02/23/17 Maricel Jain MD [address] [place] [phone] [email or web address] Historical LMR Provider 02/23/17 Jj Blake MD [address] [place] [phone] [email or web address] Historical LMR Provider 02/23/17 Naomi Morton MD [address] [place] [phone] [email or web address] Historical LMR Provider 02/23/17 Additional Source Comments The information contained in this document represents components of the legal health record. It is not the complete legal health record.[facility]
--- OUTSIDE RECORDS SUMMARY | 2025-01-05 08:57 | XMS_ITS | Encounter Summary ---
Author Organization [facility] Address [address] [place] [address] Phone Care Team Providers Care Hearing Officer Name Role Phone Madai Tejada MD Unavailable [phone] Husam Doll MD Unavailable [phone] Cassandra Myers MD Unavailable Unav ailable Ana Maldonado MD Unavailable Erlinda Rapp Unavailable [phone] Esme Rene COAT OPERATOR INSULATOR Unavailable Primo Elder DO Unavailable Ashly Vega COAT OPERATOR INSULATOR Unavailable Lina Suarez CNM Unavailable Audie Fairchild MD Unavailable Ziggy Jose DO Unavailable Ernesto Mcallister MD Unavailable [phone] Mathew Cueto MD Unavailable Chari Kuar MD Unavailable Maricel Jain MD Unavailable [phone] Jj Blake MD Unavailable Tomas Argueta MD Unavailable [phone] Kristy Pettit MD Unavailable [phone] Naomi Morton MD Unavailable Steve Nieto MD Unavailable [phone] Maricel Jain MD Primary Care Provider Roc Solares MD Primary Care Provider [phone] Encounter Details Date Type Department Care Team (Late Contact Info) Description 10/29/2017 Ancillary Orders Virtual Department 30 [place] [address] Reed Sandoval MD E [address] [place] [address] Arthralgia of hip, unspecified laterality; Pelvic pain Social History Tobacco Use Types Packs/Day [...] [facility] [address] [place] [address] Ami Rico MD [address] [place] [address] [facility] [place] [address] 01/18/2025 10:20 AM EDT Office Visit [facility] [address] [place] [address] [place] [address] Jj Blake MD [address] [place] [address], [address] [place] [address] 09/25/2025 10:00 AM EDT [facility] [place] [facility] [address] [facility] [address] [place] [address] Hemalatha Givens MD 15 [facility] [place]. [address] [place] [address] [email or web address] documented as of this encounter Visit Diagnoses Diagnosis Arthralgia of hip, unspecified laterality Pelvic pain documented in this encounter Additional Health Concerns Assessment Noted Time PHQ-2 Depression Total Score: 0 09/01/19 18 2:54 PM EDT documented as of this encounter Care Teams Hearing Officer Relationship Specialty Start Date End Date Maricel Jain MD [address] [facility] 7 [place] [address] [email or web address] PCP - General 05/14/17 05/20/22 Roc Solares MD [address] [facility] 7 [place] [address] [email or web address] PCP - General Family Medicine 05/21/22 Madai Tejada MD [address] [place] [address] [email or web address] Historical LMR Provider 09/23/14 05/18/21 Husam Doll MD [address] [place] [address] [email or web address] Historical LMR Provider 09/23/14 05/18/21 Cassandra Myers MD Historical LMR Provider 09/23/14 05/18/21 Ana Maldonado MD [address] [place] [address] [email or web address] Historical LMR Provider 06/01/16 05/18/21 Erlinda Rapp PA [facility] [place] [address] Historical LMR Provider 02/23/17 2 Esme Rene NP 1 [place] [address] Historical LMR Provider 02/23/17 2 Primo Elder DO [address] [place] [address] 7 [place] [address] Historical LMR Provider 02/23/17 Ashly Vega NP 29 [place] [address] Historical LMR Provider 02/23/17 2 Lina Suarez CNM 30 [place] [address] Historical LMR Provider 02/23/17 2 Audie Fairchild MD 22 [facility] [address] [place] [address] Historical LMR Provider 02/23/17 Ziggy Jose DO [address] [place] [address] [facility], [place] [address] [email or web address] Historical LMR Provider 02/23/17 05/18/21 Ernesto Mcallister MD [address] [place] [address], 2[address] [place] [address] [email or web address] Historical LMR Provider 02/23/17 05/18/21 Mathew Cueto MD [address] [place] [address] [phone] [email or web address] Historical LMR Provider 02/23/17 Chari Kaur MD [address] [place] [address] [email or web address] Historical LMR Provider 02/23/17 Maricel Jain MD [address] [place] [address] [email or web address] Historical LMR Provider 02/23/17 Jj Blake MD [address] [place] [address] [email or web address] Historical LMR Provider 02/23/17 Tomas Argueta MD [address] [place] [address] [phone] Historical LMR Provider 02/23/17 2 Kristy Pettit MD [address] [place] [address] [facility], [place], [place] [phone] [email or web address] Historical LMR Provider 02/23/17 Naomi Morton MD [address] [place] [address] 7 [place] [address] [email or web address] Historical LMR Provider 02/23/17 Steve Nieto MD [address] [place] [address] Historical LMR Provider 02/23/17 2 documented as of this encounter Additional Source Comments The information contained in this document represents components of the legal health record. It is not the complete legal health record.[facility]
--- OUTSIDE RECORDS SUMMARY | 2025-01-05 08:57 | XMS_ITS | Encounter Summary ---
Author Organization [facility] Address [address] [place] [address] Phone Care Team Providers Care Assembly Line Leader Name Role Phone Primo Elder DO Unavailable Audie Fairchild MD Unavailable Mathew Cueto MD Unavailable Chari Kaur MD Unavailable Maricel Jain MD Unavailable Jj Blake MD Unavailable Naomi Morton MD Unavailable [phone] Roc Solares MD Primary Care Provider Reason for Visit * Reason Onset Date Comments Appointment 01/03/2025 Encounter Details Date Type Department Care Team (Late st Contact Info) Description 01/03/2025 Telephone [facility] [address] [place] [address] Unknown, Unknown, MD Appointment Social History Tobacco Use Types Packs/Day Years [...] high school, GED, job training, learning the Khmer language, technical skills, or developing parenting skills)? [...] on file documented as of this encounter Progress Notes * Jus Lozano - 01/03/2025 9:17 AM EDT Pt lvm to schedule and appt. Thanks documented in this encounter Plan of Treatment Upcoming Encounters Date Type Department Care Team (Late st Contact Info) Description 01/10/2025 1:15 PM EDT Office Visit [facility] [address] [place] [address] Ami Rico MD [address] [place] [address] Orthopedics & Sports Medicine, [facility] [place] [address] 01/18/2025 10:20 AM EDT Office Visit [facility] [address] [place] [address] [place] [address] Jj Blake MD 22 [facility], [address] [place] [address] 09/25/2025 10:00 AM EDT Office Visit [facility] [place] [facility] 15 [facility] [address] [place] [address] Hemalatha Givens MD 15 [facility] [place]. 201 [place] [address] documented as of this encounter Visit Diagnoses Not on filedocumented in this encounter Additional Health Concerns Assessment Noted Time PHQ-2 Depression Total Score: 0 04/21/20 24 12:01 PM EST documented as of this encounter Care Teams Assembly Line Leader Relationship Specialty Start Date End Date Roc Solares MD [address] [place] [address] PCP - General Family Medicine 05/21/22 Primo Elder DO [address] [place] [address] [email or web address] Historical LMR Provider 02/23/17 Auide Fairchild MD [address] [place] [address] Historical LMR Provider 02/23/17 Mtahew Cueto MD [address] [place] [phone] [email or web address] Historical LMR Provider 02/23/17 Chari Kaur MD [address] [place] [address] [email or web address] Historical LMR Provider 02/23/17 Maricel Jain MD [address] [place] [address] [email or web address] Historical LMR Provider 02/23/17 Jj Blake MD [address] [place] [address] Historical LMR Provider 02/23/17 Naomi Morton MD [address] [place] [address] [address] [place] [address] [email or web address] Historical LMR Provider 02/23/17 documented as of this encounter Additional Source Comments The information contained in this document represents components of the legal health record. It is not the complete legal health record.[facility]
--- OUTSIDE RECORDS SUMMARY | 2025-01-05 08:57 | XMS_ITS | Encounter Summary ---
Author Organization [facility] Address [address] [place] [address] Phone Care Team Providers Care Cut Pressman Name Role Phone Madai Tejada MD Unavailable [phone] Husam Doll MD Unavailable [phone] Cassandra Myers MD Unavailable Unav ailable Ana Maldonado MD Unavailable [phone] Erlinda Rapp Unavailable [phone] Esme Rene LAUNDRY AID Unavailable Primo Elder DO Unavailable Ashly Vega LAUNDRY AID Unavailable Lina Suarez CNM Unavailable Audie Fairchild MD Unavailable Ziggy Jose DO Unavailable Ernesto Mcallister MD Unavailable [phone] Mathew Cueto MD Unavailable Chari Kaur MD Unavailable Maricel Jain MD Unavailable [phone] Jj Blake MD Unavailable Tomas Argueta MD Unavailable [phone] Kristy Pettit MD Unavailable [phone] Naomi Morton MD Unavailable [phone] Steve Nieto MD Unavailable [phone] Maricel Jain MD Primary Care Provider [phone] Roc Solares MD Primary Care Provider [phone] Reason for Referral * MRI/CAT Scan - Closed Specialty Diagnoses / Procedures Referred By Contac t Referred To Contact Radiology Diagnoses Arthralgia of hip, unspecified laterality Procedures MRI Hip (Right) MRI Hip (Left) Reed Sandoval MD [address] [place] [address] Phone: tel: fax: Referral ID Status Reason Start Date Expiration Date Visits Re quested Visits Authorized [id number] Closed 11/04/2017 12/03/2017 1 1 * MRI/CAT Scan - Closed Specialty Diagnoses / Procedures Referred By Contac t Referred To Contact Radiology Diagnoses Arthralgia of hip, unspecified laterality Procedures MRI Hip (Left) Reed Sandoval MD [address] [place] [address] Phone: tel: fax: Referral ID Status Reason Start Date Expiration Date Visits Re quested Visits Authorized [id number] Closed 11/04/2017 12/03/2017 1 1 Encounter Details Date Type Department Care Team (Late st Contact Info) Description 11/04/2017 Ancillary Orders Virtual Department 30 [place] [address] Reed Sandoval MD [address] [place] [address] Arthralgia of hip, unspecified laterality Social History Tobacco Use Types Packs/Day Years [...] Description 01/10/2025 1:15 PM EDT Office Visit [facility] Medicine [address] [place] [address] Ami Rico MD [address] [place] [address] Orthopedics & Sports Medicine, [facility] [place] [address] 01/18/2025 10:20 AM EDT Office Visit [facility] [address] [place] [address] [place] [address] Jj Blake MD 22 [facility], [address] [place] [address] 09/25/2025 10:00 AM EDT Office Visit [facility] [place] [facility] [address] [facility] [address] [place] [address] Hemalatha Givens MD 15 [facility] [place]. 201 [place] [address] Scheduled Orders Name Type Priority Associated Diagnoses Orde r Schedule MRI Hip (Right) Imaging Routine Arthralgia of hip, unspecified laterality Expected: 11/04/2017, Expires: 11/04/2018 documented as of this encounter Results * MRI HIP WITHOUT CONTRAST (LEFT) (11/05/2017 9:03 AM EDT) Anatomical Region Laterality Modality Hip Left Magnetic Resonan ce 11/05/2017 8:59 AM EDT Impressions 11/05/2017 9:08 AM EDT No findings to account for the patient's left hip pain. POS [id number] Narrative 11/05/2017 9:08 AM EDT COMPARISON: No prior MRI of the hips. CT pelvis 06/12/2013. TECHNIQUE: Exam performed on a 1.5 Halina high-field MRI scanner. Axial T2, coronal T1, T2 and STIR of both hips, oblique sagittal T1 and T2 of the left hip sequences were obtained. Patient refused dedicated MRI imaging of the right hip. MRI LEFT HIP FINDINGS: Musculoskeletal: Joint spaces are maintained. Trace physiologic hip joint fluid. No significant effusion. No bone marrow signal abnormality. No malalignment. No pelvic muscle or tendon signal abnormality identified. Additional findings: Imaged bladder and uterus are within normal limits. Small amount of physiologic free fluid in the pelvis. Imaged intestinal tract is normal. Normal vascular flow-voids. No pelvic or inguinal lymphadenopathy identified. Procedure Note Pop Pelaez MD - 11/05/2017 COMPARISON: No prior MRI of the hips. CT pelvis 06/12/2013. TECHNIQUE: Exam performed on a 1.5 Halina high-field MRI scanner. AxialT2, coronal T1, T2 and STIR of both hips, oblique sagittal T1 and T2 ofthe left hip sequences were obtained. Patient refused dedicated MRIimaging of the right hip. MRI LEFT HIP FINDINGS: Musculoskeletal: Joint spaces are maintained. Trace physiologic hip jointfluid. No significant effusion. No bone marrow signal abnormality. Nomalalignment. No pelvic muscle or tendon signal abnormality identified. Additional findings: Imaged bladder and uterus are within normal limits.Small amount of physiologic free fluid in the pelvis. Imaged intestinaltract is normal. Normal vascular flow-voids. No pelvic or inguinallymphadenopathy identified. IMPRESSION: No findings to account for the patient's left hip pain. POS [id number] Reed Sandoval MD IMG MR EXTREMITY Final Res ult documented in this encounter Visit Diagnoses Diagnosis Arthralgia of hip, unspecified laterality Arthralgia of hip, unspecified laterality documented in this encounter Additional Health Concerns Assessment Noted Time PHQ-2 Depression Total Score: 0 09/01/19 18 2:54 PM EDT documented as of this encounter Care Teams Cut Pressman Relationship Specialty Start Date End Date Maricel Jain MD [address] [facility], [address] [place] [address] [email or web address] PCP - General 05/14/17 05/20/22 Roc Solares MD [address] [facility] [place] [address] [email or web address] PCP - General Family Medicine 05/21/22 Madai Tejada MD [address] [place] [address] [email or web address] Historical LMR Provider 09/23/14 05/18/21 Husam Doll MD [address] [place] [address] [email or web address] Historical LMR Provider 09/23/14 05/18/21 Cassandra Myers MD Historical LMR Provider 09/23/14 05/18/21 Ana Maldonado MD 65 [place] [address] [email or web address] Historical LMR Provider 06/01/16 05/18/21 Erlinda Rapp [place] [address] Historical LMR Provider 02/23/17 2 Esme Rene NP 1 [place] [address] Historical LMR Provider 02/23/17 2 Primo Elder DO [address] [place] [address] 7 [place] [address] Historical LMR Provider 02/23/17 Ashly Vega NP [address] [place] [address] Historical LMR Provider 02/23/17 2 Lina Suarez CNM [address] [place] [address] Historical LMR Provider 02/23/17 2 Audie Fairchild MD [address] [place] [address] Historical LMR Provider 02/23/17 Ziggy Jose DO [address] [place] [address] Orthopedics & Sports Medicine, [place] [address] Historical LMR Provider 02/23/17 05/18/21 Ernesto Mcallister MD 22 [facility], 2nd [place] [address] Historical LMR Provider 02/23/17 05/18/21 Mathew Cueto MD [address] [place] [phone] [email or web address] Historical LMR Provider 02/23/17 Chari Kaur MD [address] [place] [address] [email or web address] Historical LMR Provider 02/23/17 Maricel Jain MD [address] [place] [address] Historical LMR Provider 02/23/17 Jj Blake MD [address] [place] [address] Historical LMR Provider 02/23/17 Tomas Argueta MD [address] [place] [address] [phone] Historical LMR Provider 02/23/17 2 Kristy Pettit MD [address] [place] [address] Orth[facility], [facility] [place] [address] Historical LMR Provider 02/23/17 Naomi Morton MD [address] [place] [address] Historical LMR Provider 02/23/17 Steve Nieto MD [address] [place] [address] Historical LMR Provider 02/23/17 2 documented as of this encounter Additional Source Comments The information contained in this document represents components of the legal health record. It is not the complete legal health record.[facility]
--- OUTSIDE RECORDS SUMMARY | 2025-01-05 08:57 | XMS_ITS | Encounter Summary ---
Author Organization [facility] Address [address] [place] [address] Phone Care Team Providers Care Machine Deburrer Name Role Phone Madai Tejada MD Unavailable [phone] Husam Doll MD Unavailable [phone] Cassandra Myers MD Unavailable Unav ailable Ana Maldonado MD Unavailable [phone] Erlinda Rapp Unavailable [phone] Esme Rene LADLE CAR OPERATOR Unavailable Primo Elder DO Unavailable Ashly Vega LADLE CAR OPERATOR Unavailable Lina Suarez CNM Unavailable Audie Fairchild MD Unavailable Ziggy Jose DO Unavailable Ernesto Mcallister MD Unavailable Mathew Cueto MD Unavailable Chari Kaur MD Unavailable Maricel Jain MD Unavailable Jj Blake MD Unavailable Tomsa Argueta MD Unavailable [phone] Kristy Pettit MD Unavailable [phone] Naomi Morton MD Unavailable [phone] Steve Nieto MD Unavailable [phone] Maricel Jain MD Primary Care Provider [phone] Roc Solares MD Primary Care Provider [phone] Encounter Details Date Type Department Care Team (Late st Contact Info) Description 02/13/2021 Procedure Pass [facility], [address] [place] [address] Social History Tobacco Use Types Packs/Day Years Used Date Smoking Tobacco: Never Smokeless Tobacco: Never Alcohol Use Standard Drinks/Week Comments Not Currently 0 (1 standard drink = 0.6 oz [...] Description 01/10/2025 1:15 PM EDT Office Visit [facility] Orthopedics & Sports Medicine [address] [place] [address] Ami Rico MD [address] [place] [address] [facility] [place] [address] 01/18/2025 10:20 AM EDT Office Visit [facility] Midwifery [address] [place] [address] [place] [address] Jj Blake MD [address] [place] [address], [address] [place] [address] 09/25/2025 10:00 AM EDT Office Visit [facility] [place] [facility] [address] [facility] [address] [place] [address] Hemalatha Givens MD 15 [facility] [place]. [address] [place] [address] [email or web address] documented as of this encounter Visit Diagnoses Not on filedocumented in this encounter Additional Health Concerns Assessment Noted Time PHQ-2 Depression Total Score: 0 03/23/20 19 10:03 AM EST documented as of this encounter Care Teams Machine Deburrer Relationship Specialty Start Date End Date Maricel Jain MD 234 [facility] 7 [place] [address] [email or web address] PCP - General 05/14/17 05/20/22 Roc Solares MD [address] [place] [address] 7 [place] [address] [email or web address] PCP - General Family Medicine 05/21/22 Madai Tejada MD [address] [place] [address] [email or web address] Historical LMR Provider 09/23/14 05/18/21 Husam Doll MD [address] [place] [address] [email or web address] Historical LMR Provider 09/23/14 05/18/21 Cassandra Myers MD Historical LMR Provider 09/23/14 05/18/21 Ana Maldonado MD 65 [place] [address] [email or web address] Historical LMR Provider 06/01/16 05/18/21 Erlinda Rapp PA [facility] [place] [address] Historical LMR Provider 02/23/17 2 Esme Rene NP 1 [place] [address] Historical LMR Provider 02/23/17 2 Primo Elder DO [address] [place] [address] 7 [place] [address] Historical LMR Provider 02/23/17 Ashly Vega NP 29 [place] [address] Historical LMR Provider 02/23/17 2 Lina Suarez CNM 30 [place] [address] Historical LMR Provider 02/23/17 2 Audie Fairchild MD [address] [place] [address] [address] [place] [address] Historical LMR Provider 02/23/17 Ziggy Jose DO [address] [place] [address] Orth[facility] Medicine, [place] [address] Historical LMR Provider 02/23/17 05/18/21 Ernesto Mcallister MD 22 [facility], 2nd [place] [address] [email or web address] Historical LMR Provider 02/23/17 05/18/21 Mathew Cueot MD [address] [place] [address] [phone] [email or web address] Historical LMR Provider 02/23/17 Chari Kaur MD [address] [place] [address] [email or web address] Historical LMR Provider 02/23/17 Maricel Jain MD [address] [place] [address] [email or web address] Historical LMR Provider 02/23/17 Jj Blake MD [address] [place] [address] [email or web address] Historical LMR Provider 02/23/17 Tomas Argueta MD [address] [place] [address] [phone] Historical LMR Provider 02/23/17 Kristy Ponce MD [address] [place] [address] [facility], [place] [address] Historical LMR Provider 02/23/17 Naomi Morton MD [address] [place] [address], [address] [place] [address] [email or web address] Historical LMR Provider 02/23/17 Steve Nieto MD [address] [place] [address] Historical LMR Provider 02/23/17 2 documented as of this encounter Additional Source Comments The information contained in this document represents components of the legal health record. It is not the complete legal health record.[facility]
--- OUTSIDE RECORDS SUMMARY | 2025-01-05 08:58 | XMS_ITS | Encounter Summary ---
Author Organization [facility] Address [address] [facility] [address] [place] [address] Phone Care Team Providers Care Sample Wrapper Name Role Phone Primo Elder DO Unavailable Audie Fairchild MD Unavailable Mathew Cueto MD Unavailable Chari Kaur MD Unavailable Maricel Jain MD Unavailable [phone] Jj Blake MD Unavailable Naomi Morton MD Unavailable [phone] Roc Solares MD Primary Care Provider [phone] Encounter Details Date Type Department Care Team (Late st Contact Info) Description 09/28/2024 Ancillary Orders [facility], Mammography- [facility] [address] [place] [address] Audie Fairchild MD [address] [facility], [address] [place], [place] [id number] [email or web address] Abnormal mammogram (Primary Dx) Social History Tobacco Use Types [...] high school, GED, job training, learning the Armenian language, technical skills, or developing parenting skills)? [...] Description 01/10/2025 1:15 PM EDT Office Visit [facility] Sports Medicine [address] [place] [address] Ami Rico MD [address] [place] [address] Orthopedics & Sports Medicine, [place] [address] 01/18/2025 10:20 AM EDT Office Visit [facility] [address] [place] [address] [place] [address] Jj Blake MD [address] [facility], [address] [place] [address] 09/25/2025 10:00 AM EDT Office Visit [facility] [address] [facility] [address] [place] [address] Hemalatha Givens MD [address] [facility] [place]. [address] [place] [address] documented as of this encounter Results * BI MAMMOGRAM DIAGNOSTIC WITH TOMOSYNTHESIS [...] evidence of suspicious mass or architectural distortion. Audie Fairchild MD IMG MG EXAMS Final Result documented in this encounter Visit Diagnoses Diagnosis Abnormal mammogram- Primary Abnormal mammogram, unspecified Abnormal mammogram Abnormal mammogram, unspecified documented in this encounter Additional Health Concerns Assessment Noted Time PHQ-2 Depression Total Score: 0 04/21/20 24 12:01 PM EST documented as of this encounter Care Teams Sample Wrapper Relationship Specialty Start Date End Date Roc Solares MD [address] [facility] 7 [place] [address] [email or web address] PCP - General Family Medicine 05/21/22 Primo Elder DO [address] [facility] 7 [place] [address] [email or web address] Historical LMR Provider 02/23/17 Audie Fairchild MD [address] [place] [address], [address] [address] [email or web address] Historical LMR Provider 02/23/17 Mathew Cueto MD [address] [phone] [email or web address] Historical LMR Provider 02/23/17 Chari Kaur MD [address] [place] [address] [email or web address] Historical LMR Provider 02/23/17 Maricel Jain MD [address] [place] [address] Historical LMR Provider 02/23/17 Jj Blake MD [address] [place] [address] Historical LMR Provider 02/23/17 Naomi Morton MD [address] [place] [address] [email or web address] Historical LMR Provider 02/23/17 documented as of this encounter Additional Source Comments The information contained in this document represents components of the legal health record. It is not the complete legal health record.[facility]
--- OUTSIDE RECORDS SUMMARY | 2025-01-05 08:58 | XMS_ITS | Clinical Summary ---
Author Organization [address] Address [address] [place] [phone] Phone Care Team Providers Care Core Mounter Name Role Phone No, Pcp (Do Not [...] (1 - 1-dose 75+ series) 12/13/2054 Meningococcal B Vaccine Aged Out No l onger eligible based on patient's age to complete this topic Meningococcal Vaccine Aged Out No georgette vinh eligible based on patient's age to complete this topic Pneumococcal Vaccine (2 - 49 years) Aged Out No longer eligible based on patient's age to complete this topic Insurance COMMERCIAL GENERIC COMMERCIAL GENERIC COMMERCIAL GENERIC COMMERCIAL GENERIC Care Teams Core Mounter Relationship Specialty Start Date End Date No, Pcp (Do Not Change Name) PCP - General 02/04/24
--- OUTSIDE RECORDS SUMMARY | 2025-01-05 08:58 | XMS_ITS | Encounter Summary ---
Author Organization [facility] Address [address] [place] [address] Phone Care Team Providers Care Newspaper Writer Name Role Phone Primo Elder DO Unavailable Audie Fairchild MD Unavailable Mathew Cueto MD Unavailable [phone] Chari Kaur MD Unavailable Maricel Jain MD Unavailable Jj Blake MD Unavailable [phone] Naomi Morton MD Unavailable [phone] Roc Solares MD Primary Care Provider Encounter Details Date Type Department Care Team (Late st Contact Info) Description 04/06/2024 Procedure Pass [facility] - [address] [place] [address] Social History Tobacco Use Types Packs/Day Years Used Date Smoking Tobacco: Never Smokeless Tobacco: Never Alcohol Use Standard Drinks/Week Comments Yes 0 (1 standard drink = 0.6 oz pur e alcohol) Education Answer Date Recorded Are you interested in more education? Not on ashlyn e 09/21/2022 Are you concerned about learning? Not on file 09/21/2022 No 09/21/2022 No 09/21/2022 Digital Access Answer Date Recorded No 10/03/2022 No 10/03/2022 Reliable internet access at home? Not on file 10/03/2022 Device with a working camera? Not on file Comments No Sex and Gender Information Value [...] Description 01/10/2025 1:15 PM EDT Office Visit [facility]ics & Sports Medicine [address] [place] [address] Ami Rico MD [address] [place] [address] Orthopedics & Sports Medicine, [facility] [place] [address] 01/18/2025 10:20 AM EDT Office Visit [facility] [address] [place] [address] [place] [address] Jj Blake MD [address] [facility], [address] [place] [address] 09/25/2025 10:00 AM EDT Office Visit [facility] [place] [facility] [address] [facility] [address] [place] [address] Hemalatha Givens MD [address] [facility] [place]. [address] [place] [address] documented as of this encounter Visit Diagnoses Not on filedocumented in this encounter Additional Health Concerns Assessment Noted Time PHQ-2 Depression Total Score: 0 04/21/20 24 12:01 PM EST documented as of this encounter Care Teams Newspaper Writer Relationship Specialty Start Date End Date Roc Solares MD [address] [facility] 7 [place] [address] [email or web address] PCP - General Family Medicine 05/21/22 Primo Elder DO [address] [place] [address] [email or web address] Historical LMR Provider 02/23/17 Audie Fairchild MD [address] [place] [address] [email or web address] Historical LMR Provider 02/23/17 Mathew Cueto MD [address] [place] [phone] [email or web address] Historical LMR Provider 02/23/17 Chari Kaur MD [address] [place] [address] [email or web address] Historical LMR Provider 02/23/17 Maricel Jain MD [address] [place] [address] [email or web address] Historical LMR Provider 02/23/17 Jj Blake MD [address] [place] [address] [email or web address] Historical LMR Provider 02/23/17 Naomi Morton MD [address] [place] [address] Historical LMR Provider 02/23/17 documented as of this encounter Additional Source Comments The information contained in this document represents components of the legal health record. It is not the complete legal health record.[facility]
--- OUTSIDE RECORDS SUMMARY | 2025-01-05 08:58 | XMS_ITS | Encounter Summary ---
Author Organization [facility] Address [address] [place] [address] Phone Care Team Providers Care Roofing Sales Representative Name Role Phone Madai Tejada MD Unavailable [phone] Husam Doll MD Unavailable [phone] Cassandra Myers MD Unavailable Unav ailable Ana Maldonado MD Unavailable Erlinda Rapp Unavailable [phone] Esme Rene FIELD KILN BURNER Unavailable Primo Elder DO Unavailable Ashly Vega FIELD KILN BURNER Unavailable Lina Suarez CNM Unavailable Audie Fairchild MD Unavailable Ziggy Jose DO Unavailable Ernesto Mcallister MD Unavailable Mathew Cueto MD Unavailable [phone] Chari Kaur MD Unavailable Maricel Jain MD Unavailable [phone] Jj Blake MD Unavailable Tomas Argueta MD Unavailable Kristy Pettit MD Unavailable [phone] Naomi Morton MD Unavailable [phone] Steve Nieto MD Unavailable [phone] Maricel Jain MD Primary Care Provider [phone] Roc Solares MD Primary Care Provider [phone] Encounter Details Date Type Department Care Team (Late Contact Info) Description 03/14/2020 Procedure Pass [facility] [address] [place] [address] Social History Tobacco Use Types Packs/Day Years [...] [facility] Medicine [address] [place] [address] Ami Rico MD [address] [place] [address] Orthopedics & Sports Medicine, [facility] [place] [address] 01/18/2025 10:20 AM EDT Office Visit [facility] [address] [place] [address] [place] [address] Jj Blake MD [address] [place] [address], [address] [place] [address] 09/25/2025 10:00 AM EDT Office Visit [facility] [address] [facility] [address] [place] [address] Hemalatha Givens MD 15 [facility] [place]. [address] [place] [address] documented as of this encounter Visit Diagnoses Not on filedocumented in this encounter Additional Health Concerns Assessment Noted Time PHQ-2 Depression Total Score: 0 03/23/20 19 10:03 AM EST documented as of this encounter Care Teams Roofing Sales Representative Relationship Specialty Start Date End Date Maricel Jain MD [address] [facility] 7 [place] [address] PCP - General 05/14/17 05/20/22 Roc Solares MD [address] [facility] 7 [place] [address] PCP - General Family Medicine 05/21/22 Madai Tejada MD [address] [place] [address] [email or web address] Historical LMR Provider 09/23/14 05/18/21 Husam Doll MD [address] [place] [address] [email or web address] Historical LMR Provider 09/23/14 05/18/21 Cassandra Myers MD Historical LMR Provider 09/23/14 05/18/21 Ana Maldonado MD [address] [place] [address] [email or web address] Historical LMR Provider 06/01/16 05/18/21 Erlinda Rapp PA [facility] [place] [address] Historical LMR Provider 02/23/17 2 Esme Rene NP [address] [place] [address] Historical LMR Provider 02/23/17 2 Primo Elder DO [address] [place] [address] 7 [place] [address] Historical LMR Provider 02/23/17 Ashly Vega NP [address] [place] [address] Historical LMR Provider 02/23/17 2 Lina Suarez CNM [address] [place] [address] Historical LMR Provider 02/23/17 2 Audie Fairchild MD [address] [place] [address] [address] [place] [address] Historical LMR Provider 02/23/17 Ziggy Jose DO [address] [place] [address] Orthopedics & Sports Medicine, [place] [address] Historical LMR Provider 02/23/17 05/18/21 Ernesto Mcallister MD 22 [facility], 2nd [place] [address] Historical LMR Provider 02/23/17 05/18/21 Mathew Cueto MD [address] [place] [phone] [email or web address] Historical LMR Provider 02/23/17 Chari Kaur MD [address] [place] [address] Historical LMR Provider 02/23/17 Maricel Jain MD [address] [place] [address] Historical LMR Provider 02/23/17 Jj Blake MD [address] [place] [address] Historical LMR Provider 02/23/17 Tomas Argueta MD [address] [place] [phone] Historical LMR Provider 02/23/17 2 Kristy Pettit MD [address] [place] [address] Orthopedics & Sports Medicine, [facility]. [place], [place] [phone] Historical LMR Provider 02/23/17 Naomi [place] MD [address] [place] [address] 7 [place] [address] Historical LMR Provider 02/23/17 Steve Nieto MD [address] [place] [address] Historical LMR Provider 02/23/17 2 documented as of this encounter Additional Source Comments The information contained in this document represents components of the legal health record. It is not the complete legal health record.[facility]
== END 2025-01-05 08:23 | disposition home or self-care (01) ==
LOC: CF 08:22
PROVIDERS: Visit Provider Internal Medicine
DX: M54.50 Low back pain, unspecified (principal)
CPT/HCPCS: 20550; 76942; J2003

== ENCOUNTER 2025-01-05 12:12 | Outpatient (AMB) | payer SELFPAY ==
[2025-01-05 12:20] VITALS: BP 124/82; PULSE 81; RESP 16; O2SAT 99
--- NOTE | 2025-01-05 12:20 | A.OFFVIS_ITS ---
Vital Signs 01/05/25 12:20 01/05/25 13:54 BP 124/82 150/88 H Blood Pressure Location Lt brachial Lt brachial Position Sitting Sitting Respiration 16 16 Pulse 81 74 Pulse Source Pulse Oximeter Pulse Oximeter Pulse Oximetry (%) 99 99 Oxygen Delivery Method Room Air Room Air Intake Visit Reasons: Left SIJ PRP Injection w/filter Airborne Missions Systems Required: No Allergies No Known Allergies Allergy (Verified 01/05/25 12:21) Medication List - Last Reconciled 01/05/25 by Matilde Head LPN No Known Home Meds HPI HPI Left SIJ PRP Injection w/filter: Details: Patient presents for scheduled procedure. Denies any recent cough, cold, infection, fever or other significant changes in medical history since last office visit. [facility] Medical History (Updated 12/07/24 @ 08:14 by Matilde Head LPN) Left-sided thoracic back pain Left-sided low back pain without sciatica Physical Exam Vital Signs: Last Vital Signs Pulse 74 01/05/25 13:54 Resp 16 01/05/25 13:54 BP 150/88 H 01/05/25 13:54 Pulse Ox 99 01/05/25 13:54 Oxygen Delivery Method Room Air 01/05/25 13:54 Office Procedures Platelet Rich Plasma Injection PRP Joint Injection After informed written consent was obtained, pre-procedure oxygen saturation, heart rate, and blood pressure were recorded. An 18 gauge butterfly needle was used to obtain 50 mL of whole blood from the right antecubital fossa. This was then mixed with 9 mL anticoagulant citrate dextrose solution. The 60 mL mixture was counter balanced to within 1 g and spun at 3500 rpm for 10 minutes. Platelet poor plasma was then drawn using a bench top press model. 6 mL of slightly leuk ocyte rich PRP was isolated in a 10 cc syringe. The platelet poor plasma syringe was then connected to a protein concentrating filter. A vaclock syringe was also attached to the filter. The PPP was then flushed back and forth through the protein concentrating filter and 7 mL of A2M protein concentrate was isolated. The PRP was targetted to the left iliolumbar ligamenet, posterior sacroiliac ligaments, the sacrotuberous ligament and sacrospinous ligament. The A2M was targeted intra-articularly into the SIJ and the posterior ligaments. Patient tolerated procedure well. MVERSE Platelet Plasma - [id number] 60 mL w/ Filter All charges added?: Procedure code (CPT) selection complete Assessment & Plan Assessment & Plan (1) Left-sided low back pain without sciatica: Code(s): M54.50 - Low back pain, unspecified Category: Medical Plan Patient is status post left SIJ/ligaments PRP/A2M injection under US guidance. Patient tolerated procedure well and was discharged home in stable condition with discharge instructions. All questions were answered. We will follow-up via telephone or in clinic to assess response to therapy. A follow-up appointment was made during today's visit. Orders: Orders FL guidance in treatment room 01/05/25 M54.50 - Low back pain, unspecified AMB Platelet Rich Plasma (PRP) Injection 01/05/25 M54.50 - Low back pain, unspecified Coding Level of Care Code Procedure Only Diagnoses Left-sided low back pain without sciatica M54.50 CPT Codes XCELL Kit 60mL Filter ([id number])
[2025-01-05 13:54] VITALS: BP 150/88; PULSE 74; RESP 16; O2SAT 99
== END 2025-01-05 13:54 | disposition home or self-care (01) ==
LOC: HO.PMCPRC 12:12
PROVIDERS: Visit Provider Internal Medicine
DX: M54.50 Low back pain, unspecified (principal)
CPT/HCPCS: 0232T

== ENCOUNTER 2025-03-01 09:20 | Outpatient (AMB) | payer OTHER, SELFPAY ==
--- OUTSIDE RECORDS SUMMARY | 2021-09-12 11:29 | XMS_ITS | Encounter Summary ---
Author Organization [facility] Address [address] [place] [address] Phone Care Team Providers Care Elevator Builder Name Role Phone Primo Elder DO Unavailable Audie Fairchild MD Unavailable Mathew Cueto MD Unavailable [phone] Chari Kaur MD Unavailable Maricel Jain MD Unavailable Jj Blake MD Unavailable [phone] Naomi Morton MD Unavailable Maricel Jain MD Primary Care Provider [phone] Encounter Details Date Type Department Care Team (Late st Contact Info) Description 09/12/2021 11:29 AM EDT Hospital Encounter [facility] BDSIDE US AUTO [address] [place] [address] Mary Tamayo MD [address] [place] [address] [email or web address] Social History Tobacco Use Types Packs/Day Years Used Date Smoking Tobacco: Never Smokeless Tobacco: Never Alcohol Use Standard Drinks/Week Comments Yes 0 (1 standard drink = 0.6 oz pur e alcohol) Child or Family Care Answer Date Record ed Do you have problems with on e of the following making it difficult for you to work, study, or receive health care? No 04/21/2024 Education Answer Date Recorded Are you interested in help w ith more adult education (for example, completing high school, GED, job training, learning the [place] language, technical skills, or developing parenting skills)? No 04/21/2024 Are you concerned about learning? Not on file 04/21/2024 No 04/21/2024 Yes 04/21/2024 Food Answer Date Recorded Within the past 6 months we worried whether our food would run out before we got money to buy more. Never True 04/21/2024 Within the past 6 months the food we bought just didn't last and we didn't have enough money to get more. Never True Residential Stability Answer Date Recor ded What is your housing situation today? I have [employer] 04/21/2024 How many times have you move d in the past 12 months? Zero (I did not move) 04/21/2024 Paying for Meds Answer Date Recorded Do you have trouble paying for medicines? No 04/21/2024 Paying Utility Bills Answer Date Record ed Do you have trouble paying your heating or elect ricity bill? No 04/21/2024 Transportation Answer Date Recorded Has the lack of transportati on kept you from medical appointments or from getting medications? No 04/21/2024 Unemployment Answer Date Recorded Are you currently unemployed or working on a part-time or temporary basis, and looking for work? No 04/21/2024 Digital Access Answer Date Recorded No 04/21/2024 Yes 04/21/2024 Do you have reliable internet access at home? Ye s 04/21/2024 Do you have a device (e.g., phone, tablet, computer) with a working camera? Yes 04/21/2024 Intimate Partner Violence Answer Date R ecorded Are you denied basic needs s uch as food, clothing, or medical care? No 07/06/2024 In the past 12 months have y ou been in a relationship with a person who hurts, threatens, or tries to control you? No 07/06/2024 Are you denied basic needs s uch as food, clothing, or medical care? No 07/06/2024 In the past 12 months have y ou been in a relationship with a person who hurts, threatens, or tries to control you? No 07/06/2024 Comments No Sex and Gender Information Value Date Recorded Sex Assigned at Female 06/25/2024 6:42 PM EST Legal Sex Female 4:05 PM EST Gender Identity Female 06/25/2024 6:42 PM EST Sexual Orientation Straight 06/25/2024 6: 42 PM EST Occupation Industry Job Start Date Job End Date working Not on file Not on file Not on file documented as of this encounter Functional Status * Calculated C-SSRS Risk Score (Lifetime/Recent) Answer Date of Assessment Author No Risk Indicated 06/25/2024 6:40 PM Yudelka Smith RN * [place] Suicide Severity Rating Scale (Screener/Recent Self-Report) Question Answer Date of Assessment Author 1. Wish to be (Past 1 Month) No 06/25/2024 6:40 PM Herbie Smith ph, RN 2. Non-Specific Active Suici saman Thoughts (Past 1 Month) No 06/25/2024 6:40 PM Herbie Smith RN 6. Suicidal Behavior (Lifetime) No 6:40 PM Herbie Smith RN documented as of this encounter Plan of Treatment Upcoming Encounters Date Type Department Care Team (Late st Contact Info) Description 09/25/2025 10:00 AM EDT Office Visit [facility] [place] [facility] [address] [place] [address] [address] [place] [address] Hemalatha Givens MD [address] [place] [address] [place] [place] [address] [email or web address] documented as of this encounter Procedures Procedure Name Priority Date/Time Associated Diagnosis Comments US BEDSIDE Routine 09/12/2021 11:29 AM EDT Sacroiliac dysfunction documented in this encounter Results * Bedside Ultrasound (09/12/2021 11:29 AM EDT) Anatomical Region Laterality Modality Ultrasound Narrative 09/12/2021 11:29 AM EDT Pamela Jackson 09/12/2021 1:33 PM Bedside Ultrasound Date/Time: 09/12/2021 11:29 AM Performed by: Mary Tamayo MD Authorized by: Mary Tamayo MD Accession Number: [id number] Mary Tamayo MD IMG POINT OF CARE EXAMS Edited Result - Final documented in this encounter Visit Diagnoses Not on filedocumented in this encounter Additional Health Concerns Assessment Noted Time PHQ-2 Depression Total Score: 0 03/23/20 19 10:03 AM EST documented as of this encounter Care Teams Elevator Builder Relationship Specialty Start Date End Date Maricel Jain MD [address] [place] [address] [email or web address] PCP - General 05/14/17 05/20/22 Primo Elder DO [address] [place] [address] [email or web address] Historical LMR Provider 02/23/17 Audie Fairchild MD [address] [place] [address] [email or web address] Historical LMR Provider 02/23/17 Mathew Cueto MD [address] [place] [phone] [email or web address] Historical LMR Provider 02/23/17 Chari Kaur MD [address] [place] [phone] [email or web address] Historical LMR Provider 02/23/17 Maricel Jain MD [address] [place] [address] [email or web address] Historical LMR Provider 02/23/17 Jj Blake MD [address] [place] [address] [address] [place] [address] Historical LMR Provider 02/23/17 Naomi Morton MD [address] [place] [address] 7 [place] [address] [email or web address] Historical LMR Provider 02/23/17 documented as of this encounter Additional Source Comments The information contained in this document represents components of the legal health record. It is not the complete legal health record.[facility]
--- NOTE | 2025-03-01 09:24 | A.OFFVIS_ITS ---
Vital Signs 03/01/25 09:29 Height 5 ft 5 in Weight 126 lb BMI 21.0 BP 118/68 Blood Pressure Location Lt brachial Position Sitting Respiration 16 Pulse 65 Pulse Source Pulse Oximeter Pulse Oximetry (%) 99 Oxygen Delivery Method Room Air Intake Visit Reasons: S/P Left SIJ PRP Injection Patternmaker Plaster Required: No Allergies No Known Allergies Allergy (Verified 03/01/25 09:30) Medication List - Last Reconciled 03/01/25 by Matilde Head LPN No Known Home Meds HPI HPI S/P Left SIJ PRP Injection: Details: History of Present Illness The patient is a 44-year-old female presenting for follow-up after a PRP injection in the left sacroiliac joint. She reports increased pain in her left sacroiliac joint for the first three weeks following the injection, which is consistent with her previous experiences with PRP injections. Both injections provided mild to moderate relief, but she continues to experience significant pain and discomfort. In terms of future treatment options, the patient discussed potentially repeating the PRP injection and combining it with shockwave and infrared therapy for maximum benefit. She also considered surgical options, but these were not favored due to her younger age unless there is clear evidence of sacroiliac joint laxity contributing to her symptoms. Additionally, there was a discussion about repeating a lumbar spine MRI due to previously known L5-S1 degenerative disc disease that may be contributing to her pain. Pain Description - Onset: Increased pain in the left sacroiliac joint for the first three weeks following PRP injection - Quality: Mild to moderate relief from PRP injections - Location: Left sacroiliac joint - Exacerbating factors: None specified - Relieving factors: PRP injections provide mild to moderate relief - Appears afebrile. - Alert and oriented. - Mood and affect appropriate. - Follows and participates in conversation appropriately. - Respiratory effort is unlabored. Pain Management - Affect: Not discussed - Analgesia: PRP injections provide mild to moderate relief - Adverse Effects: None discussed - Activities of Daily Living: Significant pain and discomfort continue - Aberrant Drug Related Behaviors: None discussed [facility] Medical History (Updated 03/01/25 @ 09:47 by Matt Stanton MD) Left-sided thoracic back pain Left-sided low back pain without sciatica Physical Exam Vital Signs: Last Vital Signs Pulse 65 03/01/25 09:29 Resp 16 03/01/25 09:29 BP 118/68 03/01/25 09:29 Pulse Ox 99 03/01/25 09:29 Oxygen Delivery Method Room Air 03/01/25 09:29 BMI result Body Mass Index 21.0 Assessment & Plan Assessment & Plan (1) Chronic SI joint pain: Code(s): M53.3 - Sacrococcygeal disorders, not elsewhere classified; G89.29 - Other chronic pain Category: Medical Plan Plan Patient was informed and verbally consented to the use of an ambient scribe for clinic note documentation during this visit. 1. Left Sacroiliac Joint Pain - Consider repeating PRP injection combined with shockwave therapy and infrared light therapy for enhanced benefit. - Surgical options were discussed but not favored due to the patient's age unless sacroiliac joint laxity is evident. 2. L5-S1 Degenerative Disc Disease - Discussed the possibility of repeating a lumbar spine MRI to assess the contribution to current pain symptoms. Discussion Notes We discussed the patient's ongoing left sacroiliac joint pain and the limited relief from previous PRP injections. I explained the potential benefits of combining PRP with shockwave and infrared light therapies. Surgical options were considered but not recommended due to the patient's age unless joint laxity is confirmed. We also talked about the need for a lumbar spine MRI to evaluate the L5-S1 degenerative disc disease. Patient Instructions - Consider scheduling another PRP injection combined with shockwave and infrared light therapies. - Contact the clinic if you decide to proceed with the treatment options discussed. - Monitor symptoms and report any significant changes or worsening of pain. Orders: Referrals Chiropractic Referral G89.29 - Other chronic pain, M53.3 - Sacrococcygeal disorders, not elsewhere classified Coding Level of Care Code Est Pt Level 4 (00984) Diagnoses Chronic SI joint pain M53.3; G89.29
[2025-03-01 09:29] VITALS: BP 118/68; PULSE 65; RESP 16; O2SAT 99; BMI 21.0
--- OUTSIDE RECORDS SUMMARY | 2025-03-01 10:26 | XMS_ITS | Encounter Summary ---
Author Organization [facility] Address [address] [place] [address] Phone Care Team Providers Care Strategy Lead Name Role Phone Madai Tejada MD Unavailable [phone] Husam Doll MD Unavailable [phone] Cassandra Myers MD Unavailable Unav ailable nAa Maldonado MD Unavailable Erlinda Rapp Unavailable [phone] Esme Rene COPY CAMERA OPERATOR Unavailable Primo Elder DO Unavailable Ashly Vega COPY CAMERA OPERATOR Unavailable [phone] Lina Suarez CNM Unavailable Audie Fairchild MD Unavailable Ziggy Jose DO Unavailable Ernesto Mcallister MD Unavailable [phone] Mathew Cueto MD Unavailable Chari Kaur MD Unavailable Maricel Jain MD Unavailable Jj Blake MD Unavailable Tomas Argueta MD Unavailable Kristy Pettit MD Unavailable [phone] Naomi Morton MD Unavailable [phone] Steve Nieto MD Unavailable [phone] Maricel Jain MD Primary Care Provider [phone] Roc Solares MD Primary Care Provider [phone] Encounter Details Date Type Department Care Team (Late st Contact Info) Description 02/19/2018 Ancillary Orders [facility] [address] [place] [address] Maricel Jain MD [address] [id number] [email or web address] Social History Tobacco Use Types Packs/Day Years [...] Description 09/25/2025 10:00 AM EDT Office Visit [facility] Primary Care [address] [facility] [address] [place] [address] Hemalatha Givens MD 15 [facility] [place]. 201 [place] [address] documented as of this encounter Visit Diagnoses Not on filedocumented in this encounter Additional Health Concerns Assessment Noted Time PHQ-2 Depression Total Score: 0 09/01/19 18 2:54 PM EDT documented as of this encounter Care Teams Strategy Lead Relationship Specialty Start Date End Date Maricel Jain MD 234 [facility] 7 [place] [address] [email or web address] PCP - General 05/14/17 05/20/22 Roc Solares MD 234 [facility], [address] [place] [address] [email or web address] PCP - General Family Medicine 05/21/22 Madai Tejada MD [address] [address] [email or web address] Historical LMR Provider 09/23/14 05/18/21 Husam Doll MD [address] [place] [address] [email or web address] Historical LMR Provider 09/23/14 05/18/21 Cassandra Myers MD Historical LMR Provider 09/23/14 05/18/21 Ana Maldonado MD 65 [place] [address] [email or web address] Historical LMR Provider 06/01/16 05/18/21 Erlinda Rapp PA [facility] [place] [address] Historical LMR Provider 02/23/17 2 Esme Rene NP 1 [place] [address] Historical LMR Provider 02/23/17 2 Primo Elder DO [address] [place] [address] 7 [place] [address] [email or web address] Historical LMR Provider 02/23/17 Ashly Vega NP [address] [place] [address] Historical LMR Provider 02/23/17 2 Lina Suarez CNM [address] [place] [address] Historical LMR Provider 02/23/17 2 Audie Fairchild MD [address] [place] [address] [email or web address] Historical LMR Provider 02/23/17 Ziggy Jose DO [address] [place] [address] [facility], [place] [address] [email or web address] Historical LMR Provider 02/23/17 05/18/21 Ernesto Mcallister MD 22 [facility], [address] [place] [address] Historical LMR Provider 02/23/17 05/18/21 Mathew Cueto MD [address] [place] [phone] [email or web address] Historical LMR Provider 02/23/17 Chari Kaur MD [address] [place] [address] Historical LMR Provider 02/23/17 Maricel Jain MD [address] [place] [address] Historical LMR Provider 02/23/17 Jj Blake MD [address] [place] [address] Historical LMR Provider 02/23/17 Tomas Argueta MD [address] [place] [phone] Historical LMR Provider 02/23/17 2 Kristy Pettit MD [address] [place] [address] [facility], [place] [address] Historical LMR Provider 02/23/17 Naomi Morton MD [address] [place] [address] Historical LMR Provider 02/23/17 Steve Nieto MD [address] [place] [address] Historical LMR Provider 02/23/17 2 documented as of this encounter Additional Source Comments The information contained in this document represents components of the legal health record. It is not the complete legal health record.[facility]
--- OUTSIDE RECORDS SUMMARY | 2025-03-01 10:26 | XMS_ITS | Encounter Summary ---
Author Organization [facility] Address [address] [place] [address] Phone Care Team Providers Care Book Salesman Name Role Phone Madai Tejada MD Unavailable [phone] Husam Doll MD Unavailable [phone] Cassandra Myers MD Unavailable Unav ailable Ana Maldonado MD Unavailable Erlinda Rapp Unavailable [phone] Esme Rene INTERLOCKING INSTALLER Unavailable Primo Elder DO Unavailable Ashly Vega INTERLOCKING INSTALLER Unavailable [phone] Lina Suarez CNM Unavailable Audie Fairchild MD Unavailable Ziggy Jose DO Unavailable Ernesto Mcallister MD Unavailable Mathew Cueto MD Unavailable [phone] Chari Kaur MD Unavailable Maricel Jain MD Unavailable Jj Blake MD Unavailable [phone] Tomas Argueta MD Unavailable Kristy Pettit MD Unavailable [phone] Naomi Morton MD Unavailable [phone] Steve Nieto MD Unavailable [phone] Maricel Jain MD Primary Care Provider [phone] Roc Solares MD Primary Care Provider Encounter Details Date Type Department Care Team (Late Contact Info) Description 02/19/2018 Ancillary Orders [facility] 234 [place] [address] Maricel Jain MD [address] [place] [address] 7 [place], [place] [id number] [email or web address] Closed displaced fracture of acromial end of [...] Upcoming Encounters Date Type Department Care Team ([facility] Contact Info) Description 09/25/2025 10:00 AM EDT Office Visit [facility] Primary Care [address] [place] [address] [address] [place] [address] Hemalatha Givens MD 15 [facility] [place]. 201 [place] [address] [email or web address] documented as of this encounter Results * XR Clavicle (Right) (02/19/2018 2:58 PM EDT) Anatomical Region Laterality Modality Shoulder Right Radiographic Fatemeh ging 02/19/2018 9:37 PM EDT Impressions 02/19/2018 9:44 PM EDT Right clavicle: Normal. Left clavicle: Internally fixated non-united distal clavicular fracture. POS - [id number] Narrative 02/19/2018 9:44 PM EDT EXAM: XR [...] fixated non-united distal clavicular fracture. POS - [id number] Maricel Jain MD IMG XR CHEST Final [...] documented as of this encounter Care Teams Book Salesman Relationship Specialty Start Date End Date Maricel Jain MD 234 [facility] 7 [place] [address] [email or web address] PCP - General 05/14/17 05/20/22 Roc Solares MD 234 [facility] 7 [place] [address] [email or web address] PCP - General Family Medicine 05/21/22 Madai Tejada MD [address] [place] [address] [email or web address] Historical LMR Provider 09/23/14 05/18/21 Husam Doll MD [address] [place] [address] [email or web address] Historical LMR Provider 09/23/14 05/18/21 Cassandra Myers MD Historical LMR Provider 09/23/14 05/18/21 Ana Maldonado MD [address] [place] [address] [email or web address] Historical LMR Provider 06/01/16 05/18/21 Erlinda Rapp PA [facility] [address] Historical LMR Provider 02/23/17 2 Esme Rene, INTERLOCKING INSTALLER 1 [place] [address] Historical LMR Provider 02/23/17 2 Primo Elder DO [address] [place] [address] 7 [place] [address] Historical LMR Provider 02/23/17 Ashly Vega NP [address] [place] [address] Historical LMR Provider 02/23/17 2 Lina Suarez CNM [address] [place] [address] Historical LMR Provider 02/23/17 2 Audie Fairchild MD [address] [place] [address] Historical LMR Provider 02/23/17 Ziggy Jose DO [address] [place] [address] [facility], [place] [address] Historical LMR Provider 02/23/17 05/18/21 Ernesto Mcallister MD 22 [facility], 2nd [place] [address] Historical LMR Provider 02/23/17 05/18/21 Mathew Cueto MD [address] [place] [address] 7 [place] [phone] [email or web address] Historical LMR Provider 02/23/17 Chari Kaur MD [address] [place] [address] Historical LMR Provider 02/23/17 Maricel Jain MD [address] [place] [address] Historical LMR Provider 02/23/17 Jj Blake MD [address] [place] [address] Historical LMR Provider 02/23/17 Tomas Argueta MD [address] [place] [phone] Historical LMR Provider 02/23/17 2 Kristy Pettit MD [address] [place] [address] [facility], [facility] [place] [address] Historical LMR Provider 02/23/17 Naomi Morton MD [address] [place] [address] Historical LMR Provider 02/23/17 Steve Nieto MD [address] [place] [address] Historical LMR Provider 02/23/17 2 documented as of this encounter Additional Source Comments The information contained in this document represents components of the legal health record. It is not the complete legal health record.[facility]
--- OUTSIDE RECORDS SUMMARY | 2025-03-01 10:26 | XMS_ITS | Encounter Summary ---
Author Organization [facility] Address [address] [place] [address] Phone Care Team Providers Care Transportation Job Titles Name Role Phone Madai Tejada MD Unavailable [phone] Husam Doll MD Unavailable [phone] Cassandra Myers MD Unavailable Unav ailable Ana Maldonado MD Unavailable [phone] Erlinda Rapp Unavailable Esme Rene JAWBONE PULLER Unavailable Primo Elder DO Unavailable Ashly Vega JAWBONE PULLER Unavailable [phone] Lina Suarez CNM Unavailable Audie Fairchild MD Unavailable Ziggy Jose DO Unavailable Ernesto Mcallister MD Unavailable [phone] Mathew Cueto MD Unavailable Chari Kaur MD Unavailable Maricel Jain MD Unavailable Jj Blake MD Unavailable Tomas Argueta MD Unavailable [phone] Kristy Pettit MD Unavailable [phone] Naomi Morton MD Unavailable [phone] Steve Nieto MD Unavailable [phone] Maricel Jain MD Primary Care Provider Roc Solares MD Primary Care Provider [phone] Encounter Details Date Type Department Care Team (Late st Contact Info) Description 04/21/2018 Procedure Pass [facility], [address] [place] [address] Social History Tobacco Use Types Packs/Day Years [...] Description 09/25/2025 10:00 AM EDT Office Visit [facility] Primary Care [address] [place] [address] [address] [place] [address] Hemalatha Givens MD [address] [place] [address] [place] 201 [place] [address] documented as of this encounter Visit Diagnoses Not on filedocumented in this encounter Additional Health Concerns Assessment Noted Time PHQ-2 Depression Total Score: 0 09/01/19 18 2:54 PM EDT documented as of this encounter Care Teams Transportation Job Titles Relationship Specialty Start Date End Date Maricel Jain MD [address] [place] [address], [address] [place] [address] PCP - General 05/14/17 05/20/22 Roc Solares MD 234 [facility], [address] [place] [address] [email or web address] PCP - General Family Medicine 05/21/22 Madai Tejada MD [address] [place] [address] [email or web address] Historical LMR Provider 09/23/14 05/18/21 Husam Doll MD 148 [place] [address] [email or web address] Historical LMR Provider 09/23/14 05/18/21 Cassandra Myers MD Historical LMR Provider 09/23/14 05/18/21 Ana Maldonado MD 65 [place] [address] [email or web address] Historical LMR Provider 06/01/16 05/18/21 Erlinda Rapp PA [facility] [place] [address] Historical LMR Provider 02/23/17 2 Esme Rene NP 1 [facility] [address] Historical LMR Provider 02/23/17 2 Primo Elder DO 234 [facility], [address] [place] [address] Historical LMR Provider 02/23/17 Ashly Vega NP [address] [place] [address] Historical LMR Provider 02/23/17 2 Lina Suarez CNM [address] [place] [address] Historical LMR Provider 02/23/17 2 Audie Fairchild MD [address] [place] [address] Historical LMR Provider 02/23/17 Ziggy Jose DO [address] [place] [address] [facility], [place] [address] Historical LMR Provider 02/23/17 05/18/21 Ernesto Mcallister MD [address] [place] [address], 2nd [place] [address] Historical LMR Provider 02/23/17 05/18/21 Mathew Cueto MD [address] [place] [phone] [email or web address] Historical LMR Provider 02/23/17 Chari Kaur MD [address] [place] [address] [email or web address] Historical LMR Provider 02/23/17 Maricel Jain MD 234 [facility] 7 [place] [address] Historical LMR Provider 02/23/17 Jj Blake MD 22 [facility] [address] [place] [address] Historical LMR Provider 02/23/17 Tomas Argueta MD [address] [place] [phone] Historical LMR Provider 02/23/17 2 Kristy Pettit MD [address] [place] [address] [facility], [facility] [place] [address] [email or web address] Historical LMR Provider 02/23/17 Naomi Morton MD 234 [facility] 7 [place] [address] [email or web address] Historical LMR Provider 02/23/17 Steve Nieto MD 61 [place] [address] Historical LMR Provider 02/23/17 2 documented as of this encounter Additional Source Comments The information contained in this document represents components of the legal health record. It is not the complete legal health record.[facility]
--- OUTSIDE RECORDS SUMMARY | 2025-03-01 10:26 | XMS_ITS | Encounter Summary ---
Author Organization [facility] Address [address] [place] [address] Phone Care Team Providers Care E D Tech Name Role Phone Primo Elder DO Unavailable Audie Fairchild MD Unavailable aMthew Cueto MD Unavailable [phone] Chari Kaur MD Unavailable Maricel Jain MD Unavailable [phone] Jj Blake MD Unavailable [phone] Naomi Morton MD Unavailable [phone] Roc Solares MD Primary Care Provider [phone] Encounter Details Date Type Department Care Team (Late st Contact Info) Description 04/21/2024 Procedure Pass [address] [place] [address] Social History Tobacco Use Types Packs/Day Years [...] high school, GED, job training, learning the Spanish language, technical skills, or developing parenting skills)? [...] Description 09/25/2025 10:00 AM EDT Office Visit [facility] 15 [facility] [address] [place] [address] Hemalatha Givens MD 15 [facility] [place]. 201 [place] [address] [email or web address] documented as of this encounter Visit Diagnoses Not on filedocumented in this encounter Additional Health Concerns Assessment Noted Time PHQ-2 Depression Total Score: 0 04/21/20 24 12:01 PM EST documented as of this encounter Care Teams E D Tech Relationship Specialty Start Date End Date Roc Solares MD [address] [place] [address] [email or web address] PCP - General Family Medicine 05/21/22 Primo Elder DO [address] [place] [address] [email or web address] Historical LMR Provider 02/23/17 Audie Fairchild MD [address] [place] [address] [email or web address] Historical LMR Provider 02/23/17 Mathew Cueto MD [address] [place] [phone] [email or web address] Historical LMR Provider 02/23/17 Chari Kaur MD [address] [place] [address] Historical LMR Provider 02/23/17 Maricel Jain MD [address] [place] [address] Historical LMR Provider 02/23/17 Jj Blake MD [address] [place] [address] Historical LMR Provider 02/23/17 Naomi Morton MD [address] [place] [address] Historical LMR Provider 02/23/17 documented as of this encounter Additional Source Comments The information contained in this document represents components of the legal health record. It is not the complete legal health record.[facility]
--- OUTSIDE RECORDS SUMMARY | 2025-03-01 10:26 | XMS_ITS | Encounter Summary ---
Author Organization [facility] Address [address] [place] [address] Phone Care Team Providers Care Social Insurance Specialist Name Role Phone Madai Tejada MD Unavailable [phone] Husam Doll MD Unavailable [phone] Cassandra Myers MD Unavailable Unav ailable Ana Maldonado MD Unavailable Erlinda Rapp Unavailable [phone] Esme Rene RACE CAR MECHANIC Unavailable Primo Elder DO Unavailable Ashly Vega RACE CAR MECHANIC Unavailable Lina Suarez CNM Unavailable Audie Fairchild MD Unavailable Ziggy Jose DO Unavailable Ernesto Mcallister MD Unavailable Mathew Cueto MD Unavailable Chari Kaur MD Unavailable Maricel Jain MD Unavailable Jj Blake MD Unavailable Tomas Argueta MD Unavailable Kristy Pettit MD Unavailable [phone] Naomi Morton MD Unavailable [phone] Steve Nieto MD Unavailable [phone] Maricel Jain MD Primary Care Provider [phone] Roc Solares MD Primary Care Provider Encounter Details Date Type Department Care Team (Late Contact Info) Description 01/23/2018 Transcribe Orders [facility] Specimen Processing [address] [place] [address] Lizzie Salmon, [facility] [address] [facility], [address] [place] [address] [email or web address] Wound infection (Primary Dx) Social History Tobacco [...] Upcoming Encounters Date Type Department Care Team ([facility] Contact Info) Description 09/25/2025 10:00 AM EDT Office Visit [facility] 15 [facility] [address] [place] [address] Hemalatha Givens MD 15 [facility] [place]. [address] [place] [address] documented as of this encounter Results * Wound culture/smear (01/22/2018 7:39 PM EDT) Specimen Source/ Description HIP RIGHT HIP WOUND CULTURE HIP [facility] Special Requests None [facility] GRAM STAIN NO ORGANISMS SEEN [facility] Culture/Test NO GROWTH 48HRS [facility] Report Status 01/25/2018 FINAL [facility] Other (Hip) 01/22/2018 7:39 PM EDT 01/23/2018 3:22 PM EDT us Lizzie Salmon PRACTICAL NURSE CLINICAL COORDINATOR MICROBIOLOGY - GENERAL O RDERABLES Final Result [facility] [address] [place] [address] documented in this encounter Visit Diagnoses Diagnosis Wound infection- Primary Posttraumatic wound infection not elsewhere classified documented in this encounter Additional Health Concerns Assessment Noted Time PHQ-2 Depression Total Score: 0 09/01/19 18 2:54 PM EDT documented as of this encounter Care Teams Social Insurance Specialist Relationship Specialty Start Date End Date Maricel Jain MD 234 [facility] 7 [place] [address] [email or web address] PCP - General 05/14/17 05/20/22 Roc Solares MD 234 [facility], [facility] 7 [place] [address] [email or web address] PCP - General Family Medicine 05/21/22 Madai Tejada MD [address] [place] [address] [email or web address] Historical LMR Provider 09/23/14 05/18/21 Husam Doll MD [address] [place] [address] [email or web address] Historical LMR Provider 09/23/14 05/18/21 Cassandra Myers MD Historical LMR Provider 09/23/14 05/18/21 Ana Maldonado MD 65 [place] [address] [email or web address] Historical LMR Provider 06/01/16 05/18/21 Erlinda Rapp PA [facility] [place] [address] Historical LMR Provider 02/23/17 2 Esme Rene NP 1 [place] [address] Historical LMR Provider 02/23/17 2 Primo Elder DO [address] [place] [address] 7 [place] [address] [email or web address] Historical LMR Provider 02/23/17 Ashly Vega NP 29 [place] [address] Historical LMR Provider 02/23/17 2 Lina Suarez CNM 30 [place] [address] Historical LMR Provider 02/23/17 2 Audie Fairchild MD 22 [facility] [address] [place] [address] [email or web address] Historical LMR Provider 02/23/17 Ziggy Jose DO [address] [place] [address] [facility], [place] [address] Historical LMR Provider 02/23/17 05/18/21 Ernesto Mcallister MD [address] [place] [address], 2nd [place] [address] Historical LMR Provider 02/23/17 05/18/21 Mathew Cueto MD [address] [place] [phone] [email or web address] Historical LMR Provider 02/23/17 Chari Kaur MD [address] [place] [address] [email or web address] Historical LMR Provider 02/23/17 Maricel Jain MD [address] [place] [address] [email or web address] Historical LMR Provider 02/23/17 Jj Blake MD [address] [place] [address] [email or web address] Historical LMR Provider 02/23/17 Tomas Argueta MD [address] [place] [address] [phone] Historical LMR Provider 02/23/17 2 Kristy Pettit MD [address] [place] [address] [facility], [place], [place] [phone] [email or web address] Historical LMR Provider 02/23/17 Naomi Morton MD [address] [place] [address] 7 [place] [address] [email or web address] Historical LMR Provider 02/23/17 Steve Nieto MD [address] [place] [address] Historical LMR Provider 02/23/17 2 documented as of this encounter Additional Source Comments The information contained in this document represents components of the legal health record. It is not the complete legal health record.[facility]
--- OUTSIDE RECORDS SUMMARY | 2025-03-01 10:26 | XMS_ITS | Encounter Summary ---
Author Organization [facility] Address [address] [place] [address] Phone Care Team Providers Care Heddle Machine Operator Name Role Phone Madai Tejada MD Unavailable [phone] Husam Doll MD Unavailable [phone] Cassandra Myers MD Unavailable Unav ailable Ana Maldonado MD Unavailable Erlinda Rapp Unavailable [phone] Esme Rene HEAT TREATMENT TECHNICIAN Unavailable Priom Elder DO Unavailable Ashly Vega HEAT TREATMENT TECHNICIAN Unavailable Lina Suarez CNM Unavailable Audie Fairchild MD Unavailable Ziggy Jose DO Unavailable Ernesto Mcallister MD Unavailable Mathew Cueto MD Unavailable [phone] Chari Kaur MD Unavailable Maricel Jain MD Unavailable Jj Blake MD Unavailable Tomas Argueta MD Unavailable [phone] Kristy Pettit MD Unavailable [phone] Naomi Morton MD Unavailable [phone] Steve Nieto MD Unavailable [phone] Maricel Jain MD Primary Care Provider [phone] Roc Solares MD Primary Care Provider [phone] Encounter Details Date Type Department Care Team (Late Contact Info) Description 11/05/2017 Ancillary Orders Virtual Department [address] [place] [address] Reed Sandoval MD E [address] [place] [address] Bilateral hip pain Social History Tobacco Use [...] Department Care Team (Late Contact Info) Description 09/25/2025 10:00 AM EDT Office Visit [facility] [place] [facility] [address] [place] [address] [address] [place] [address] Hemalatha Givens MD [address] [place] [address] [place] [address] [place] [address] documented as of this encounter Visit Diagnoses Diagnosis Bilateral hip pain Pain in joint, pelvic region and thigh documented in this encounter Additional Health Concerns Assessment Noted Time PHQ-2 Depression Total Score: 0 09/01/19 18 2:54 PM EDT documented as of this encounter Care Teams Heddle Machine Operator Relationship Specialty Start Date End Date Maricel Jain MD [address] [place] [address], [address] [place] [address] [email or web address] PCP - General 05/14/17 05/20/22 Roc Solares MD [address] [facility], [address] [place] [address] [email or web address] PCP - General Family Medicine 05/21/22 Madai Tejada MD [address] [place] [address] [email or web address] Historical LMR Provider 09/23/14 05/18/21 Husam Doll MD [address] [place] [address] [email or web address] Historical LMR Provider 09/23/14 05/18/21 Cassandra Myers MD Historical LMR Provider 09/23/14 05/18/21 Ana Maldonado MD [address] [place] [address] [email or web address] Historical LMR Provider 06/01/16 05/18/21 Erlinda Rapp PA [facility] [place] [address] Historical LMR Provider 02/23/17 2 Esme Rene HEAT TREATMENT TECHNICIAN 1 [place] [address] Historical LMR Provider 02/23/17 2 Primo Elder DO [address] [place] [address] 7 [place] [address] [email or web address] Historical LMR Provider 02/23/17 Ashly Vega NP [address] [place] [address] Historical LMR Provider 02/23/17 2 Lina Suarez CNM [address] [place] [address] Historical LMR Provider 02/23/17 2 Audie Fairchild MD [address] [place] [address] [email or web address] Historical LMR Provider 02/23/17 Ziggy Jose DO [address] [place] [address] [facility], [place] [address] [email or web address] Historical LMR Provider 02/23/17 05/18/21 Ernesto Mcallister MD [address] [facility], [address] [place] [address] [email or web address] Historical LMR Provider 02/23/17 05/18/21 Mathew Cueto MD [address] [place] [phone] [email or web address] Historical LMR Provider 02/23/17 Chari Kaur MD [address] [address] Historical LMR Provider 02/23/17 Maricel Jain MD [address] [place] [address] Historical LMR Provider 02/23/17 Jj Blake MD [address] [place] [address] Historical LMR Provider 02/23/17 Tomas Argueta MD [address] [place] [phone] Historical LMR Provider 02/23/17 2 Kristy Pettit MD [address] [place] [address] [facility], [place] [address] Historical LMR Provider 02/23/17 Naomi Morton MD [address] [place] [address] Historical LMR Provider 02/23/17 Steve Nieto MD [address] [place] [address] Historical LMR Provider 02/23/17 2 documented as of this encounter Additional Source Comments The information contained in this document represents components of the legal health record. It is not the complete legal health record.[facility]
--- OUTSIDE RECORDS SUMMARY | 2025-03-01 10:27 | XMS_ITS | Encounter Summary ---
Author Organization [facility] Address [address] [place] [address] Phone Care Team Providers Care Electronics Utility Worker Name Role Phone Primo Elder DO Unavailable Audie Fairchild MD Unavailable Mathew Cueto MD Unavailable Chari Kaur MD Unavailable Maricel Jain MD Unavailable [phone] Jj Blake MD Unavailable Naomi Morton MD Unavailable [phone] Roc Solares MD Primary Care Provider Encounter Details Date Type Department Care Team (Late st Contact Info) Description 07/06/2024 Telephone [facility] Family Medicine [address] [place], [place] [phone] [place] [phone] [place] [address] Social History Tobacco Use Types Packs/Day Years [...] high school, GED, job training, learning the German language, technical skills, or developing parenting skills)? [...] Description 09/25/2025 10:00 AM EDT Office Visit [facility] [place] [facility] [address] [facility] [address] [place] [address] Hemalatha Givens MD [address] [facility] [place]. [address] [place] [address] [email or web address] documented as of this encounter Visit Diagnoses Not on filedocumented in this encounter Additional Health Concerns Assessment Noted Time PHQ-2 Depression Total Score: 0 04/21/20 24 12:01 PM EST documented as of this encounter Care Teams Electronics Utility Worker Relationship Specialty Start Date End Date Roc Solares MD 234 [facility] 7 [place] [address] [email or web address] PCP - General Family Medicine 05/21/22 Primo Elder DO [address] [facility] 7 [place] [address] [email or web address] Historical LMR Provider 02/23/17 Audie Fairchild MD [address] [facility], [address] [place] [address] [email or web address] Historical LMR Provider 02/23/17 Mathew Cueto MD [address] [facility] 7 [place] [phone] [email or web address] Historical LMR Provider 02/23/17 Chari Kaur MD [address] [place] [address] Historical LMR Provider 02/23/17 Maricel Jain MD [address] [place] [address] Historical LMR Provider 02/23/17 Jj Blake MD [address] [place] [address] Historical LMR Provider 02/23/17 Naomi Morton MD [address] [place] [address] Historical LMR Provider 02/23/17 documented as of this encounter Additional Source Comments The information contained in this document represents components of the legal health record. It is not the complete legal health record.[facility]
--- OUTSIDE RECORDS SUMMARY | 2025-03-01 10:27 | XMS_ITS | Encounter Summary ---
Author Organization [facility] Address [address] [place] [address] Phone Care Team Providers Care Mold Stripper Name Role Phone Madai Tejada MD Unavailable [phone] Husam Doll MD Unavailable [phone] Cassandra Myers MD Unavailable Unav ailable Ana Maldonado MD Unavailable Erlinda Rapp Unavailable [phone] Esme Rene REGULATORY AFFAIRS ASSOCIATE Unavailable Primo Elder DO Unavailable Ashly Vega REGULATORY AFFAIRS ASSOCIATE Unavailable Lina Suarez CNM Unavailable Audie Fairchild MD Unavailable Ziggy Jose DO Unavailable Ernesto Mcallister MD Unavailable Mathew Cueto MD Unavailable Chari Kaur MD Unavailable Maricel Jain MD Unavailable Jj Blake MD Unavailable Tomas Argueta MD Unavailable Kristy Pettit MD Unavailable [phone] Naomi Morton MD Unavailable [phone] Steve Nieto MD Unavailable [phone] Maricel Jain MD Primary Care Provider [phone] Roc Solares MD Primary Care Provider [phone] Encounter Details Date Type Department Care Team (Late st Contact Info) Description 07/21/2017 Procedure [facility] - [address] [place] [address] Social History Tobacco Use Types Packs/Day Years [...] Description 09/25/2025 10:00 AM EDT Office Visit [facility] [place] [facility] [address] [place] [address] [address] [place] [address] Hemalatha Givens MD [address] [place] [address] [place] [place] [address] [email or web address] documented as of this encounter Visit Diagnoses Not on filedocumented in this encounter Care Teams Mold Stripper Relationship Specialty Start Date End Date Maricle Jain MD [address] [place] [address], [address] [place] [address] [email or web address] PCP - General 05/14/17 05/20/22 Roc Solares MD [address] [place] [address] [address] [place] [address] [email or web address] PCP - General Family Medicine 05/21/22 Madai Tejada MD [address] [place] [address] [email or web address] Historical LMR Provider 09/23/14 05/18/21 Husam Doll MD [address] [place] [address] [email or web address] Historical LMR Provider 09/23/14 05/18/21 Cassandra Myers MD Historical LMR Provider 09/23/14 05/18/21 Ana Maldonado MD [address] [place] [address] [email or web address] Historical LMR Provider 06/01/16 05/18/21 Erlinda Rapp PA [facility] [place] [address] Historical LMR Provider 02/23/17 2 Esme Rene REGULATORY AFFAIRS ASSOCIATE 1 [place] [address] Historical LMR Provider 02/23/17 2 Primo Elder DO [address] [place] [address] 7 [place] [address] [email or web address] Historical LMR Provider 02/23/17 Ashly Vega NP [address] [place] [address] Historical LMR Provider 02/23/17 2 Lina Suarez CNM [address] [place] [address] Historical LMR Provider 02/23/17 2 Audie Fairchild MD [address] [place] [address] [email or web address] Historical LMR Provider 02/23/17 Ziggy Jose DO [address] [place] [address] [facility], [place] [address] [email or web address] Historical LMR Provider 02/23/17 05/18/21 Ernesto Mcallister MD [address] [facility] [place] [address] [email or web address] Historical LMR Provider 02/23/17 05/18/21 Mathew Cueto MD [address] [place] [phone] [email or web address] Historical LMR Provider 02/23/17 Chari Kaur MD [address] [place] [address] Historical LMR Provider 02/23/17 Maricel Jain MD [address] [place] [address] Historical LMR Provider 02/23/17 Jj Blake MD [address] [place] [address] Historical LMR Provider 02/23/17 Tomas Argueta MD [address] [place] [phone] Historical LMR Provider 02/23/17 2 Kristy Pettit MD [address] [place] [address] [facility], [facility] [place] [address] Historical LMR Provider 02/23/17 Naomi Morton MD [address] [place] [address] Historical LMR Provider 02/23/17 Steve Nieto MD [address] [place] [address] Historical LMR Provider 02/23/17 2 documented as of this encounter Additional Source Comments The information contained in this document represents components of the legal health record. It is not the complete legal health record.[facility]
--- OUTSIDE RECORDS SUMMARY | 2025-03-01 10:27 | XMS_ITS | Clinical Summary ---
Author Organization [facility] Address [address] [place] [address] Phone Care Team Providers Care Night Baker Name Role Phone Primo Elder DO Unavailable Audie Fairchild MD Unavailable Mathew Cueto MD Unavailable Chari Kaur MD Unavailable Maricel Jain MD Unavailable Jj Blake MD Unavailable Naomi Morton MD Unavailable Roc Solares MD Primary Care Provider Allergies No known active allergies Medications diazePAM (VALIUM) 5 MG tabletIndicatio ns:Chronic left-sided thoracic back pain Take 1 tablet (5 mg total) by mouth nightly at bedtime as needed for anxiety. 28 tablet 2 4 Active fluoride, sodium, (PREVIDENT 5000 BOOSTER) 1.1 % Pste APPLY TO TOOTHBRUSH AND BRUSH TEETH AT NIGHT WITH TOOTHPASTE 5 Active levonorgestrel- ethinyl estradiol (AVIANE,ALESSE, LESSINA) 0.1-0.02 mg per tabletIndicatio ns:Menorrhagia with irregular cycle Take 1 tablet by mouth daily. 112 tablet 1 5 Active Active Problems Patient Care Coordination No te Formatting of this note migh t be different from the original. Isaiah was referred to the [facility] by herself for a second opinion due to abnormal microarray results from amniocentesis She is a 38 yo EDC=03/16/2020 She is and spouse name: Jean Claude US at 19 weeks showed no abnormal findings: normal survey Consults and imagin11.03.2019 genetic consult with Yany Burnette: Problem Noted Date Diagnosed Date Fracture, Colles, right, closed 07/06/2024 [place] eye disease of left eye 05/13/2024 Assessment [...] modalities, medications, and has gone to the [facility] pain clinic. Chronic pain persisting. Resolved [...] if this gets worse to see a fleet manager/dispatch to help with the ingrowing toenail on [...] significance - 714kb interstitial gain at 5p13.2 (5p13.2(36,299,[id number],613,158)x4) -awaiting final reports Nausea and vomiting during [...] Encounters Date Type Department Care Team Description 02/09/2025 Telephone [facility] [address] [place] [address] Roc Solares MD fax 02/01/2025 10:40 AM EDT Office Visit [facility] [address] [place] [address] [place] [address] Jj Blake MD Menorrhagia with irregular cycle (Primary Dx) 02/01/2025 9:20 AM EDT - 02/01/2025 11:59 PM EDT Hospital Encounter [facility] [place] [address] [place] [address] Jj Blake MD Discharge Disposition: Home or Self Care 01/24/2025 9:15 AM EDT Office Visit [facility] [address] [place] [address] Ami Rico MD Closed fracture of distal end of right radius with routine healing, unspecified fracture morphology, subsequent encounter (Primary Dx) 01/19/2025 Telephone [facility] [address] [place] [address] Marisa Duarte RN Results 01/18/2025 11:07 AM EDT - 01/18/2025 11:59 PM EDT Hospital Encounter [facility] [address] [place] [address] [place] [address] Roc Solares MD Discharge Disposition: Home or Self Care 01/18/2025 10:20 AM EDT [facility] [address] [place] [address] [place] [address] Jj Blake MD Menorrhagia with irregular cycle (Primary Dx); Perimenopausal symptoms 01/03/2025 [facility]phone [facility] [address] [place] [address] Unknown, Unknown, Appointment from Last 3 Months Immunizations Immunization Administration [...] high school, GED, job training, learning the Korean language, technical skills, or developing parenting skills)? [...] Sign Reading Time Taken Comments Blood Pressure 92/64 02/01/2025 10:57 AM EDT Pulse 100 07/06/2024 3:45 PM EST Temperature 36.6 C (97.9 F) 07/06/2024 2:05 PM EST Respiratory Rate 12 07/06/2024 3:45 PM EST Oxygen Saturation 97% 07/06/2024 4:00 PM EST Inhaled Oxygen Concentration - - Weight 55.3 kg (122 lb) 01/18/2025 10:23 AM EDT Height 167.6 cm (5' 6 ) 01/18/2025 10:23 AM EDT Body Mass Index 19.69 01/18/2025 10:23 AM EDT Plan of Treatment Upcoming Encounters Date Type Department Care Team (Late st Contact Info) Description 09/25/2025 10:00 AM EDT Office Visit [facility] [address] [address] [place] [address] Hemalatha Givens MD [address] [facility] [place] [place] [address] [email or web address] Health Maintenance Due Date Last Done Comments INFLUENZA VACCINE (#1) 2024 , 02/06/2023, 01/30/2022, Additional history exists COLOGUARD 12/13/2024 COLONOSCOPY 12/13/2024 COLORECTAL CANCER SCREENING 12/13/2024 FIT TEST 12/13/2024 FOBT 12/13/2024 SIGMOIDOSCOPY 12/13/2024 VIRTUAL COLONOSCOPY 12/13/2024 COVID-19 VACCINE ( season) 2025 05/18/2024, 02/06/2023, 01/30/2022, Additional history exists DEPRESSION SCREENING 04/21/2025 04/21/2024 MAMMOGRAM 09/27/2026 09/27/2024 PAP SMEAR 04/06/2027 04/06/2024, 08/10, 08/31/2017 Adult Td,Tdap Booster 01/11/2030 01/12/2020 , 02/12/2015, 08/18/2012 LIPID PANEL 01/18/2030 01/18/2025, 09/10, 09/10/2017 HEPATITIS C SCREENING Completed 03/29/2019 HIV ONE-TIME SCREENING (18-65 YEARS) Completed 03/29/2019, 09/22/2014 SMOKING STATUS SCREENING (Once After 26 Yrs) Completed 01/24/2025 HEPATITIS A VACCINES Aged Out No long [...] this topic Medical Devices Implanted Type Area Cafe Aide Device Identifier Shelf Expiration Date Model / Serial / Lot Screw Bone 2.4x18mm Variax 2 T8 Locking Fully Threaded Mini - [id number] Implanted:Qty: 4 on 07/06/2024 by Ami Rico MD at [facility] Right: Wrist [employer] [id number] / / Screw Bone 2.7x12mm Variax 2 T8 Locking Fully Threaded Mini - [id number] Implanted:Qty: 1 on 07/06/2024 by Ami Rico MD at [facility] Right: Wrist [employer] [id number] / / Variax 2 Plate 54 Mm 4 Hole Implanted:Qty: 1 on 07/06/2024 by Ami Rico MD at [facility] Right: Wrist [employer] [id number] / / Screw Bone 2.4x16mm Variax 2 T8 Locking Fully Threaded Mini - [id number] Implanted:Qty: 2 on 07/06/2024 by Ami Rico MD at [facility] Right: Wrist [employer] [id number] / / Screw Bone 2.7x10mm Variax 2 T8 Non Locking Fully Threaded Mini [id number] - [id number] Implanted:Qty: 1 on 07/06/2024 by Ami Rico MD at [facility] Right: Wrist [employer] [id number] / / Screw Bone 2.7x10mm Variax 2 T8 Locking Fully Threaded Mini - [id number] Implanted:Qty: 2 on 07/06/2024 by Ami Rico MD at [facility] Right: Wrist [employer] [id number] / / Screw Bone 2.7x12mm Variax 2 T8 Locking Fully Threaded Mini - [id number] Implanted:Qty: 1 on 07/06/2024 by Ami Rico MD at [facility] Right: Wrist [employer] [id number] / / Screw Bone 2.7x12mm Variax 2 T8 Non Locking Fully Threaded Mini [id number] - [id number] Implanted:Qty: 1 on 07/06/2024 by Ami Rico MD at [facility] Right: Wrist [employer] [id number] / / Procedures Procedure Name Priority Date/Time Associated Diagnosis Comments US PELVIS TRANSABDOMINAL PLUS TRANSVAGINAL Routine 02/01/2025 9:59 AM EDT Menorrhagia with irregular cycle TSH WITH REFLEX Routine 01/18/2025 11:13 AM EDT Menorrhagia with irregular cycle COMPREHENSIVE METABOLIC PANEL Routine 01/18/2025 11:13 AM EDT Annual physical exam LIPID PANEL Routine 01/18/2025 11:13 AM EDT Annual physical exam CBC AND DIFFERENTIAL Routine 01/18/2025 11:13 AM EDT Annual physical exam BI MAMMOGRAM SCREENING WITH TOMOSYNTHESIS WITH CAD (BILATERAL) Routine 09/27/2024 11:00 AM EDT Encounter for screening mammogram for malignant neoplasm of breast PAP TEST Routine 04/06/2024 12:00 AM EST HEPATITIS C ANTIBODY, QUALITATIVE Routine 03/29/2019 2:32 PM EST Female infertility OUTSIDE HIV Routine 09/22/2014 from Last 3 Months or Most Recently Relevant to Health Maintenance Results * US PELVIS TRANSABDOMINAL PLUS TRANSVAGINAL (02/01/2025 9:59 AM EDT) Anatomical Region Laterality Modality Pelvis, Uterus/Adnexa Ultrasound 02/01/2025 9:59 AM EDT Impressions 02/01/2025 11:02 AM EDT 1. Heterogeneous uterus with no discrete masses. However, there are changes suggestive of adenomyosis as described above. 2. The endometrium measures 10.5 mm and is without focal masses. 3. The ovaries appear grossly normal. 4. There is no free fluid. Narrative 02/01/2025 11:02 AM EDT Procedure: US PELVIS TRANSABDOMINAL AND TRANSVAGINAL 02/01/2025 9:21 AM US Indications: Menorrhagia. Comparison: No relevant recent comparisons. Technique: Transabdominal sonography of the pelvis was performed. In addition, transvaginal imaging was performed to better evaluate the adnexae and ovaries. Color Doppler imaging was performed to assess vascularity. 3-D images were acquired and evaluated during image interpretation. Reported LMP: FINDINGS: Uterus: The uterus measurements acquired; 8.98 cm x 6.16 cm x 4.69 cm with volume of 135.84 ml. The uterus is anteverted in its positioning. The myometrium is heterogeneous and appears asymmetrical with a prominent posterior region. Endometrium: The endometrium measures 1.05 cm. No focal endometrial masses seen. No fluid is identified within the endometrial canal. No focal cervical masses. Ovaries: The right ovary measures 1.69 cm x 2.67 cm x 1.14 cm with volume of 2.69 ml. Appears grossly normal Right Adnexa: No masses seen. The left ovary measures 2.43 cm x 2.84 cm x 1.27 cm with volume of 4.59 ml. Appears grossly normal Left Adnexa: No masses seen. Cul de Sac: There is no evidence of free pelvic fluid. Tech Comments: Procedure Note Jj Blake MD - 02/01/2025 Procedure: US PELVIS TRANSABDOMINAL AND TRANSVAGINAL 02/01/2025 9:21 AM US Indications: Menorrhagia. Comparison: No relevant recent comparisons. Technique: Transabdominal sonography of the pelvis was performed. Inaddition, transvaginal imaging was performed to better evaluate theadnexae and ovaries. Color Doppler imaging was performed to assessvascularity. 3-D images were acquired and evaluated during imageinterpretation. Reported LMP: FINDINGS: Uterus: The uterus measurements acquired; 8.98 cm x 6.16 cm x 4.69 cm with volumeof 135.84 ml. The uterus is anteverted in its positioning. Themyometrium is heterogeneous and appears asymmetrical with a prominentposterior region. Endometrium: The endometrium measures 1.05 cm. No focal endometrial masses seen. Nofluid is identified within the endometrial canal. No focal cervical masses. Ovaries: The right ovary measures 1.69 cm x 2.67 cm x 1.14 cm with volume of 2.69ml. Appears grossly normal Right Adnexa: No masses seen. The left ovary measures 2.43 cm x 2.84 cm x 1.27 cm with volume of 4.59ml. Appears grossly normal Left Adnexa: No masses seen. Cul de Sac: There is no evidence of free pelvic fluid. Tech Comments: IMPRESSION: 1. Heterogeneous uterus with no discrete masses. However, there arechanges suggestive of adenomyosis as described above. 2. The endometrium measures 10.5 mm and is without focal masses. 3. The ovaries appear grossly normal. 4. There is no free fluid. Jj Blake MD IMG US PELVIS Final Result * (ABNORMAL) Comprehensive metabolic panel (01/18/2025 11:13 AM EDT) SODIUM 140 133 - 146 mmol/L [facility] POTASSIUM 4.8 3.3 - 5.1 mmol/L [facility] CHLORIDE 104 96 - 108 mmol/L [facility] CO2 26 21 - 35 mmol/L [facility] BUN 12 6 - 19 mg/dL [facility] CREATININE 0.70 0.5 - 1.5 mg/dL [facility] GLUCOSE 101(H) 70 - 99 mg/dL [facility] ALBUMIN 4.6 3.9 - 4.8 g/dL [facility] TOTAL PROTEIN 6.8 6.5 - 8.0 g/dL [facility] CALCIUM 9.5 8.4 - 10.3 mg/dL [facility] ALKALINE PHOSPHATASE 43 39 - 117 U/L [facility] TOTAL BILIRUBIN 0.4 0.0 - 1.2 mg/dL [facility] AST 17 0 - 37 U/L [facility] ALT 11 0 - 40 U/L [facility] GLOBULIN 2.2 1 - 4.8 g/dL [facility] EGFR 109 >59 mL/min/1.7 3m2 [facility] Comment:Estimated glomerular filtration rate calculated using the CKD-EPI refit equation. ANION GAP 15 10 - 20 mmol/L [facility] Blood 01/18/2025 11:1 3 AM EDT 01/18/2025 11:18 AM EDT us Roc Solares MD LAB BLOOD ORDERABLES Final Resul t [facility] [address] [place] [address] * TSH with reflex (01/18/2025 11:13 AM EDT) TSH 1.27 0.27 - 4.20 uIU/mL [facility] Blood 01/18/2025 11:1 3 AM EDT 01/18/2025 11:18 AM EDT Jj Blake MD LAB BLOOD ORDERABLES Final Re sult [facility] [address] [place] [address] * CBC and differential (01/18/2025 11:13 AM EDT) WBC 6.47 4.00 - 11.00 K/uL [facility] RBC 4.47 4.00 - 5.20 M/uL [facility] HGB 13.7 12.0 - 16.0 g/dL [facility] HCT 40.7 36.0 - 46.0 % [facility] PLT 230 150 - 450 K/uL [facility] MCV 91.1 80.0 - 100.0 fL [facility] MCH 30.6 27.0 - 31.0 pg [facility] MCHC 33.7 32.0 - 36.0 g/dL [facility] RDW 11.9 11.5 - 14.5 % [facility] MPV 9.3 8.4 - 12.0 fL [facility] NRBC 0.00 0.00 /100 WBCs [facility] ABSOLUTE NRBC 0.00 0.00 K/uL [facility] DIFF METHOD Auto [facility] NEUTS 64.1 48.0 - 76.0 % [facility] LYMPHS 24.4 18.0 - 41.0 % [facility] MONOS 9.6 4.0 - 11.0 % [facility] EOS 1.2 0.0 - 5.0 % [facility] BASOS 0.5 0.0 - 1.5 % [facility] Granulocytes, immature (%) 0.2 0.0 - 0.9 % [facility] ABSOLUTE NEUTS 4.15 1.92 - 7.60 K/uL [facility] ABSOLUTE LYMPHS 1.58 0.72 - 4.10 K/uL [facility] ABSOLUTE MONOS 0.62 0.16 - 1.10 K/uL [facility] ABSOLUTE EOS 0.08 0.00 - 0.50 K/uL [facility] ABSOLUTE BASOS 0.03 0.00 - 0.15 K/uL [facility] Granulocytes, immature 0.01 0.00 - 0.09 K/uL [facility] Blood 01/18/2025 11:1 3 AM EDT 01/18/2025 11:18 AM EDT us Roc Solares MD LAB BLOOD ORDERABLES Final Resul t [address] [address] * (ABNORMAL) Lipid panel (01/18/2025 11:13 AM EDT) HDL 64 mg/dL [facility] Comment: Interpretation <40 mg/dL: Low HDL cholesterol (major risk factor for CHD) Greater than or equal to 60 mg/dL: High HDL cholesterol ( negative risk factor for CHD) HDL - cholesterol is affected by a number of factors, e.g. smoking, excerise, hormones, sex and age. CHOLESTEROL 179 0 - 240 mg/dL [facility] TRIGLYCERIDES 108 30 - 160 mg/dL [facility] LDL 93 50 - 129 mg/dL [facility] Comment: LDL levels in terms of risk for coronary heart disease: <100 mg/dL: Optimal 100-129 mg/dL: Near or above optimal 130-159 mg/dL: Borderline high 160-189 mg/dL: High >190 mg/dL: Very High CARDIAC RISK RATIO 2.8(L) 3.3 - 4.4 C [facility] Blood 01/18/2025 11:1 3 AM EDT 01/18/2025 11:18 AM EDT us Roc Solares MD LAB BLOOD ORDERABLES Final Resul t [address] [address] * (ABNORMAL) BI MAMMOGRAM SCREENING WITH TOMOSYNTHESIS [...] the patient to arrange for theadditional imaging. Audie Fairchild MD IM MG EXAMS Final Result * Pap Test (04/06/2024 12:00 AM EST) Report [address] [address] Fiscal Technician: Dave Del Angel MD TOOL CLERK Cytology Report FINAL DIAGNOSIS A. PAP SMEAR (THIN PREP) CE: SPECIMEN ADEQUACY: Satisfactory for evaluation; transformation zone present. INTERPRETATION: NEGATIVE FOR INTRAEPITHELIAL LESION OR MALIGNANCY. This specimen was analyzed by the automated ThinPrep Imaging System (Isagen.) and the selected duran were reviewed by a television newscast director. Electronically Signed Out By: IRINA Galdamez(ASCP) The [...] by real-time polymerase chain reaction (PCR) at [facility], [address] [place] [address] using the FDA-approved BD Onclarity9 HPV Assay with extended genotyping. Uses of the assay in scenarios other than those approved by the FDA should be considered off-label use. The accuracy and precision of this test for all other off-label specimen sources has been verified in the Cytopathology Laboratory of the [facility] and has not been cleared or [...] : 1980 (Age: 43) Sex: F Institution: [facility] Location: [facility] Date of Collection: 04/06/2024 Date of Reported: 04/13/2024 09:15 Results to: Audie Fairchild MD [facility] Final Diagnosis A. PAP SMEAR (THIN PREP) CE: SPECIMEN ADEQUACY: Satisfactory for evaluation; transformation zone present. INTERPRETATION: NEGATIVE FOR INTRAEPITHELIAL LESION OR MALIGNANCY. This specimen was analyzed by the automated ThinPrep Imaging System (Isagen.) and the selected duran were reviewed by a television newscast director. [facility] Results\Inter pretation A. PAP SMEAR (THIN PREP) CE: High-risk HPV Panel w/ extended genotyping NEG HPV 16-NEG HPV 18-NEG HPV 45-NEG HPV 33/58-NEG HPV 31-NEG HPV 56/59/66-NEG HPV 51-NEG HPV 52-NEG HPV 35/39/68-NEG Performed by real-time polymerase chain reaction (PCR) at [facility], [address] [place] [address] using the FDA-approved BD Onclarity HPV Assay with extended genotyping. Uses of the assay in scenarios other than those approved by the FDA should be considered off-label use. The accuracy and precision of this test for all other off-label specimen sources has been verified in the Cytopathology Laboratory of the [facility] and has not been cleared or approved by the U.S. Food and Drug Administration. Clinical correlation is advised. The assay assesses the E6/E7 DNA target and utilizes human beta globin as an internal control. Cytology and HPV testing are screening assays and should not be used as the sole means of detecting cancer. False-positives and false-negatives can occur. [facility] Conversion Type (Conversion Source) 04/06/2024 04/11/2024 9:34 AM EST us Audie Fairchild MD CYTOLOGY ORDERABLES Edited Resul t - Final [address] [address] * Hepatitis C antibody, qualitative (03/29/2019 2:32 PM EST) HCV NON-REACTIV E NON-REACTI VE [facility] Blood 03/29/2019 2:32 PM EST 03/29/2019 2:49 PM EST us Mathew Jewell MD LAB BLOOD ORDERABLES Final Resu lt [facility] [address] [place] [address] * OUTSIDE HIV TEST (09/22/2014) HIV - External Neg us Cindy Provider LAB BLOOD ORDERABLES Blanca l Result from Last 3 Months or Most Recently Relevant to Health Maintenance Insurance [employer] PPO [employer] [place] [address] [place] [address] [employer] G[employer] PLUS PPO [facility] [place] P[place] Jeremy [facility] [place] ROSI GRANGER [phone] Advance Directives For more information, please contact: [phone] (9AM - 5PM Ericka/[facility], Thursday-Thursday) * Full Code (Latest Code Status on File) Date Activated Date Inactivated Comments 03/14/2020 9:20 AM Question Answer Comments Code Status Confirmed With: Patient Code Status Communicated To: Inpatient Attending * Full Code Date Activated Date Inactivated Comments 03/14/2020 6:08 AM 03/14/2020 9:20 AM Question Answer Comments Code Status Confirmed With: Patient Code Status Communicated To: Inpatient Attending Care Teams Night Baker Relationship Specialty Start Date End Date Roc Solares MD [address] [place] [id number] [email or web address] PCP - General Family Medicine 05/21/22 Primo Elder DO [address] [place] [phone] [email or web address] Historical LMR Provider 02/23/17 Audie Fairchild MD [address] [place] [phone] [email or web address] Historical LMR Provider 02/23/17 Mathew Cueto MD [address] [place] [phone] [email or web address] Historical LMR Provider 02/23/17 Chari Kaur MD [address] [place] [id number] Historical LMR Provider 02/23/17 Maricel Jain MD [address] [place] [address] [address] [place] [address] [email or web address] Historical LMR Provider 02/23/17 Jj Blake MD [address] [place] [id number] Historical LMR Provider 02/23/17 Naomi Morton MD [address] [place] [address] [address] [place] [address] [email or web address] Historical LMR Provider 02/23/17 Additional Source Comments The information contained in this document represents components of the legal health record. It is not the complete legal health record.[facility]
--- OUTSIDE RECORDS SUMMARY | 2025-03-01 10:27 | XMS_ITS | Encounter Summary ---
Author Organization [facility] Address [address] [place] [address] Phone Care Team Providers Care Extender Name Role Phone Madai Tejada MD Unavailable [phone] Hsuam Doll MD Unavailable [phone] Cassandra Myers MD Unavailable Unav ailable Ana Maldonado MD Unavailable Erlinda Rapp Unavailable [phone] Esme Rene EARLY BREASTFEEDING CARE SPECIALIST Unavailable Primo Elder DO Unavailable Ashly Vega EARLY BREASTFEEDING CARE SPECIALIST Unavailable Lina Suarez CNM Unavailable Audie Fairchild MD Unavailable Ziggy Jose DO Unavailable Ernesto Mcallister MD Unavailable [phone] Mathew Cueto MD Unavailable Chari Kaur MD Unavailable Maricel Jain MD Unavailable Jj Blake MD Unavailable Tomas Argueta MD Unavailable [phone] Kristy Pettit MD Unavailable [phone] Naomi Morton MD Unavailable [phone] Steve Nieto MD Unavailable [phone] Maricel Jain MD Primary Care Provider [phone] Roc Solares MD Primary Care Provider [phone] Reason for Referral * MRI/CAT Scan - Closed Specialty Diagnoses / Procedures Referred By Contac t Referred To Contact Radiology Diagnoses Herniated nucleus pulposus, lumbar Procedures MRI Lumbar Spine Reed Sandoval MD [address] [place] [address] Phone: tel: fax: Referral ID Status Reason Start Date Expiration Date Visits Re quested Visits Authorized [id number] Closed 07/21/2017 08/19/2017 1 1 Encounter Details Date Type Department Care Team (Late st Contact Info) Description 07/21/2017 Ancillary Orders Virtual Department 30 [place] [address] Reed Sandoval MD [address], [place] [id number] Herniated nucleus pulposus, lumbar Social History Tobacco [...] Description 09/25/2025 10:00 AM EDT Office Visit [facility] 15 [facility] 201 [place] [address] Hemalatha Givens MD [address] [place], [place] [address], [place] [address] [email or web address] documented as of this encounter Results * MRI LUMBAR SPINE (NEURO) WITHOUT CONTRAST (07/29/2017 10:56 AM EDT) Anatomical Region Laterality Modality L-spine Magnetic Resonan ce 07/29/2017 11:1 6 AM EDT Impressions 07/29/2017 11:23 AM EDT No focal disc protrusion, central canal stenosis, or overt neural foraminal compromise, or other significant interval change from 12/01/2016 apparent. POS - [id number] Narrative 07/29/2017 11:23 AM EDT TECHNIQUE: Exam [...] significant interval change from 12/01/2016apparent. POS - [id number] Reed Sandoval MD IMG MR XSPECIALTY Final Re sult documented in this encounter Visit Diagnoses Diagnosis Herniated nucleus pulposus, lumbar Displacement of lumbar intervertebral disc without myelopathy Herniated nucleus pulposus, lumbar Displacement of lumbar intervertebral disc without myelopathy documented in this encounter Care Teams Extender Relationship Specialty Start Date End Date Maricel Jain MD [address] [place] [address] 7 [place] [address] PCP - General 05/14/17 05/20/22 Roc Solares MD [address] [place] [address] 7 [place] [address] PCP - General Family Medicine 05/21/22 Madai Tejada MD [address] [address] [email or web address] Historical LMR Provider 09/23/14 05/18/21 Husam Doll MD 148 [place] [address] [email or web address] Historical LMR Provider 09/23/14 05/18/21 Cassandra Myers MD Historical LMR Provider 09/23/14 05/18/21 Ana Maldonado MD 65 [place] [address] [email or web address] Historical LMR Provider 06/01/16 05/18/21 Erlinda Rapp PA [facility] [place] [address] Historical LMR Provider 02/23/17 2 Esme Rene NP [address] [place] [address] Historical LMR Provider 02/23/17 2 Primo Elder DO [address] [place] [address] 7 [place] [address] [email or web address] Historical LMR Provider 02/23/17 Ashly Vega NP 29 [place] [address] Historical LMR Provider 02/23/17 2 Lina Suarez CNM [address] [place] [address] Historical LMR Provider 02/23/17 2 Audie Fairchild MD [address] [place] [address] Historical LMR Provider 02/23/17 Ziggy Jose DO [address] [place] [address] [facility], [place] [address] Historical LMR Provider 02/23/17 05/18/21 Ernesto Mcallister MD [address] [place] [address], [address] [place] [address] Historical LMR Provider 02/23/17 05/18/21 Mathew Cueto MD [address] [place] [phone] [email or web address] Historical LMR Provider 02/23/17 Chari Kaur MD [address] [place] [address] Historical LMR Provider 02/23/17 Maricel Jain MD [address] [place] [address] Historical LMR Provider 02/23/17 Jj Blake MD [address] [place] [address] 102 [place] [address] Historical LMR Provider 02/23/17 Tomas Argueta MD 236 [facility] 7 [place] [address] Historical LMR Provider 02/23/17 2 Kristy Pettit MD 4 [facility], [place] [address] Historical LMR Provider 02/23/17 Naomi Morton MD 234 [facility] 7 [place] [address] Historical LMR Provider 02/23/17 Steve Nieto MD 61 [place] [address] Historical LMR Provider 02/23/17 2 documented as of this encounter Additional Source Comments The information contained in this document represents components of the legal health record. It is not the complete legal health record.[facility]
--- OUTSIDE RECORDS SUMMARY | 2025-03-01 10:27 | XMS_ITS | Encounter Summary ---
Author Organization [facility] Address [address] [place] [address] Phone Care Team Providers Care Traffic Controller Cable Name Role Phone Madai Tejada MD Unavailable [phone] Husam Doll MD Unavailable [phone] Cassandra Myers MD Unavailable Unav ailable Ana Maldonado MD Unavailable Erlinda Rapp Unavailable [phone] Esme Rene PROVIDER ENGAGEMENT EXECUTIVE Unavailable Primo Elder DO Unavailable Ashly Vega PROVIDER ENGAGEMENT EXECUTIVE Unavailable Lina Suarez CNM Unavailable Audie Fairchild MD Unavailable Ziggy Jose DO Unavailable Ernesto Mcallister MD Unavailable Mathew Cueto MD Unavailable Chari Kaur MD Unavailable Maricel Jain MD Unavailable [phone] Jj Blake MD Unavailable Tomas Argueta MD Unavailable [phone] Kristy Pettit MD Unavailable [phone] Naomi Morton MD Unavailable [phone] Steve Nieto MD Unavailable [phone] Maricel Jain MD Primary Care Provider [phone] Roc Solares MD Primary Care Provider [phone] Reason for Referral * MRI/CAT Scan - Closed Specialty Diagnoses / Procedures Referred By Contac t Referred To Contact Radiology Diagnoses Arthralgia of hip, unspecified laterality Procedures MRI Hip (Right) MRI Hip (Left) Reed Sandoval MD [address] [place] [address] Phone: tel: fax: Referral ID Status Reason Start Date Expiration Date Visits Re quested Visits Authorized [id number] Closed 11/04/2017 12/03/2017 1 1 * MRI/CAT Scan - Closed Specialty Diagnoses / Procedures Referred By Contac t Referred To Contact Radiology Diagnoses Arthralgia of hip, unspecified laterality Procedures MRI Hip (Left) Reed Sandoval MD [address] [place] [address] Phone: tel: fax: Referral ID Status Reason Start Date Expiration Date Visits Re quested Visits Authorized [id number] Closed 11/04/2017 12/03/2017 1 1 Encounter Details Date Type Department Care Team (Late st Contact Info) Description 11/04/2017 Ancillary Orders Virtual Department 30 [place] [address] Reed Sandoval MD [address] [place] [address] Arthralgia of hip, unspecified laterality Social [...] Description 09/25/2025 10:00 AM EDT Office Visit [facility] 15 [facility] [address] [place] [address] Hemalatha Givens MD 15 [facility] [place]. 201 [place] [address] [email or web address] Scheduled Orders Name Type Priority Associated Diagnoses [...] for the patient's left hip pain. POS [id number] Narrative 11/05/2017 9:08 AM EDT COMPARISON: No [...] for the patient's left hip pain. POS [id number] Reed Sandoval MD IMG MR EXTREMITY Final Res ult documented in this encounter Visit Diagnoses Diagnosis Arthralgia of hip, unspecified laterality Arthralgia of hip, unspecified laterality documented in this encounter Additional Health Concerns Assessment Noted Time PHQ-2 Depression Total Score: 0 09/01/19 18 2:54 PM EDT documented as of this encounter Care Teams Traffic Controller Cable Relationship Specialty Start Date End Date Maricel Jain MD [address] [place] [address], [facility] 7 [place] [address] [email or web address] PCP - General 05/14/17 05/20/22 Roc Solares MD [address] [place] [address], [facility] 7 [place] [address] PCP - General Family Medicine 05/21/22 Madai Tejada MD [address] [place] [address] [email or web address] Historical LMR Provider 09/23/14 05/18/21 Husam Doll MD [address] [place] [address] [email or web address] Historical LMR Provider 09/23/14 05/18/21 Cassandra Myers MD Historical LMR Provider 09/23/14 05/18/21 Ana Maldonado MD 65 [place] [address] [email or web address] Historical LMR Provider 06/01/16 05/18/21 Erlinda Rapp PA [address] [place], [place] [address]césar [place] [address] Historical LMR Provider 02/23/17 2 Esme Rene NP 1 [place] [address] Historical LMR Provider 02/23/17 2 Primo Elder DO [address] [place] [address] 7 [place] [address] [email or web address] Historical LMR Provider 02/23/17 Ashly Vega NP 29 [place] [address] Historical LMR Provider 02/23/17 2 Lina Suarez CNM [address] [place] [address] Historical LMR Provider 02/23/17 2 Audie Fairchild MD [address] [place] [address] Historical LMR Provider 02/23/17 Ziggy Jose DO [address] [place] [address] [facility], [place] [address] Historical LMR Provider 02/23/17 05/18/21 Ernesto Mcallister MD [address] [place] [address], 2nd [place] [address] Historical LMR Provider 02/23/17 05/18/21 Mathew Cueto MD [address] [place] [phone] [email or web address] Historical LMR Provider 02/23/17 Chari Kaur MD [address] [place] [address] [email or web address] Historical LMR Provider 02/23/17 Maricel Jain MD [address] [place] [address] [email or web address] Historical LMR Provider 02/23/17 Jj Blake MD 22 [facility] 102 [place] [address] Historical LMR Provider 02/23/17 Tomas Argueta MD 236 [facility] 7 [place] [phone] Historical LMR Provider 02/23/17 2 Kristy Pettit MD [address] [place] [address] [facility], [place] [address] Historical LMR Provider 02/23/17 Naomi [place] MD [address] [place] [address] 7 [place] [address] Historical LMR Provider 02/23/17 Steve Nieto MD 61 [place] [address] Historical LMR Provider 02/23/17 2 documented as of this encounter Additional Source Comments The information contained in this document represents components of the legal health record. It is not the complete legal health record.[facility]
--- OUTSIDE RECORDS SUMMARY | 2025-03-01 10:27 | XMS_ITS | Encounter Summary ---
Author Organization [facility] Address [address] [place] [address] Phone Care Team Providers Care Alumni Relations Manager Name Role Phone Madai Tejada MD Unavailable [phone] Husam Doll MD Unavailable [phone] Cassandra Myers MD Unavailable Unav ailable Ana Maldonado MD Unavailable [phone] Erlinda Rapp Unavailable [phone] Esme Rene RESIDENT ASSISTANT CNA Unavailable Primo Elder DO Unavailable Ashly Vega RESIDENT ASSISTANT CNA Unavailable [phone] Lina Suarez CNM Unavailable Audie Fair[place] MD Unavailable Ziggy Jose DO Unavailable Ernesto Mcallister MD Unavailable Mathew Cueto MD Unavailable Chari Kaur MD Unavailable Maricel Jain MD Unavailable [phone] Jj Blake MD Unavailable Tomas Argueta MD Unavailable Kristy Pettit MD Unavailable [phone] Naomi [place] MD Unavailable [phone] Steve Nieto MD Unavailable [phone] Maricel Jain MD Primary Care Provider [phone] Roc Solares MD Primary Care Provider [phone] Encounter Details Date Type Department Care Team (Late Contact Info) Description 10/29/2017 Ancillary Orders Virtual Department 30 [place] [address] Reed Sandoval MD [address] [place] [address] Arthralgia of hip, unspecified laterality; Pelvic pain [...] Description 09/25/2025 10:00 AM EDT Office Visit [facility] 15 [facility] [address] [place] [address] Hemalatha Givens MD 15 [facility] [place]. 201 [place] [address] [email or web address] documented as of this encounter Visit Diagnoses Diagnosis Arthralgia of hip, unspecified laterality Pelvic pain documented in this encounter Additional Health Concerns Assessment Noted Time PHQ-2 Depression Total Score: 0 09/01/19 18 2:54 PM EDT documented as of this encounter Care Teams Alumni Relations Manager Relationship Specialty Start Date End Date Maricel Jain MD 234 [facility], [address] [place] [address] [email or web address] PCP - General 05/14/17 05/20/22 Roc Solares MD 234 [facility], [address] [place] [address] [email or web address] PCP - General Family Medicine 05/21/22 Madai Tejada MD [address] [place] [address] [email or web address] Historical LMR Provider 09/23/14 05/18/21 Husam Doll MD [address] [place] [address] [email or web address] Historical LMR Provider 09/23/14 05/18/21 Cassandra Myers MD Historical LMR Provider 09/23/14 05/18/21 Ana Maldonado MD 65 [place] [address] [email or web address] Historical LMR Provider 06/01/16 05/18/21 Erlinda Rapp PA [facility] [place] [address] Historical LMR Provider 02/23/17 2 Esme Rene RESIDENT ASSISTANT CNA 1 [place] [address] Historical LMR Provider 02/23/17 2 Primo Elder DO [address] [place] [address] 7 [place] [address] [email or web address] Historical LMR Provider 02/23/17 Ashly Vega NP [address] [place] [address] Historical LMR Provider 02/23/17 2 Lina Suarez CNM [address] [place] [address] Historical LMR Provider 02/23/17 2 Audie Fair[place] MD [address] [place] [address] [email or web address] Historical LMR Provider 02/23/17 Ziggy Jose DO [address] [place] [address] [facility], [place] [address] Historical LMR Provider 02/23/17 05/18/21 Ernesto Mcallister MD [address] [place] [address], 2nd [place] [address] Historical LMR Provider 02/23/17 05/18/21 Mathew Cueto MD [address] [place] [address] 7 [place] [phone] [email or web address] Historical LMR Provider 02/23/17 Chari Kaur MD [address] [address] Historical LMR Provider 02/23/17 Maricel Jain MD [address] [place] [address] Historical LMR Provider 02/23/17 Jj Blake MD [address] [place] [address] Historical LMR Provider 02/23/17 Tomas Argueta MD [address] [place] [phone] Historical LMR Provider 02/23/17 2 Kristy Pettit MD [address] [place] [address] [facility], [place] [address] Historical LMR Provider 02/23/17 Naomi [place] MD [address] [place] [address] Historical LMR Provider 02/23/17 Steve Nieto MD [address] [place] [address] Historical LMR Provider 02/23/17 2 documented as of this encounter Additional Source Comments The information contained in this document represents components of the legal health record. It is not the complete legal health record.[facility]
--- OUTSIDE RECORDS SUMMARY | 2025-03-01 10:27 | XMS_ITS | Encounter Summary ---
Author Organization [facility] Address [address] [place] [address] Phone Care Team Providers Care Binder Roller Name Role Phone Primo Elder DO Unavailable Audie Fairchild MD Unavailable Mathew Cueto MD Unavailable Chari Kaur MD Unavailable Maricel Jain MD Unavailable Jj Blake MD Unavailable [phone] Naomi [place] MD Unavailable Roc Solares MD Primary Care Provider [phone] Reason for Visit * Reason Onset Date Comments fax 02/09/2025 Encounter Details Date Type Department Care Team (Late st Contact Info) Description 02/09/2025 Telephone [facility] 234 [place] [address] Roc Solares MD 234 [facility], [address] [place], [place] [phone] [email or web address] fax Social History Tobacco Use Types Packs/Day Years [...] high school, GED, job training, learning the Hungarian language, technical skills, or developing parenting skills)? [...] as of this encounter Progress Notes * Jody Marie - 02/09/2025 8:37 AM EDT [facility] Top Smart Phrases: Fax Request Name of caller, if not the patient, AND where they are calling from: [facility] Name of Facility fax is being sent to: [facility] Document(s) requested: Last two office notes and any recent imaging within last year on pt's back Fax Number: [phone] [facility] Call Center CSS Agent (Please do not reply to this user, as this inbox is not monitored. Thank you.) Thank you. documented in this encounter Plan of Treatment Upcoming Encounters Date Type Department Care Team (Late st Contact Info) Description 09/25/2025 10:00 AM EDT Office Visit [facility] [address] [place] [address] [address] [place] [address] Hemalatha Givens MD 15 [facility] [place]. 201 [place] [address] documented as of this encounter Visit Diagnoses Not on filedocumented in this encounter Additional Health Concerns Assessment Noted Time PHQ-2 Depression Total Score: 0 04/21/20 24 12:01 PM EST documented as of this encounter Care Teams Binder Roller Relationship Specialty Start Date End Date Roc Solares MD [address] [place] [address] [address] [place], [place] [phone] PCP - General Family Medicine 05/21/22 Primo Elder DO [address] [place] [address] [email or web address] Historical LMR Provider 02/23/17 Audie Fair[place] MD [address] [place] [address] [email or web address] Historical LMR Provider 02/23/17 Mathew Cueto MD [address] [place] [phone] [email or web address] Historical LMR Provider 02/23/17 Chari Kaur MD [address] [place] [address] [email or web address] Historical LMR Provider 02/23/17 Maricel Jain MD [address] [place] [address] [email or web address] Historical LMR Provider 02/23/17 Jj Blake MD [address] [place] [address] [email or web address] Historical LMR Provider 02/23/17 Naomi [place] MD [address] [place] [address] Historical LMR Provider 02/23/17 documented as of this encounter Additional Source Comments The information contained in this document represents components of the legal health record. It is not the complete legal health record.[facility]
--- OUTSIDE RECORDS SUMMARY | 2025-03-01 10:27 | XMS_ITS | Encounter Summary ---
Author Organization [facility] Address [address] [place] [address] Phone Care Team Providers Care Non Clinical Advisor Name Role Phone Madai Tejada MD Unavailable [phone] Husam Doll MD Unavailable [phone] Cassandra Myers MD Unavailable Unav ailable Ana Maldonado MD Unavailable Erlinda Rapp Unavailable [phone] Esme Rene GOVERNMENT RELATIONS MANAGER Unavailable Primo Elder DO Unavailable Ashly Vega GOVERNMENT RELATIONS MANAGER Unavailable Lina Suarez CNM Unavailable Audie Fairchild MD Unavailable Ziggy Jose DO Unavailable Ernesto Mcallister MD Unavailable Mathew Cueto MD Unavailable Chari Kaur MD Unavailable Maricel Jain MD Unavailable Jj Blake MD Unavailable Tomas Argueta MD Unavailable Kristy Pettit MD Unavailable [phone] Naomi Morton MD Unavailable [phone] Steve Nieto MD Unavailable [phone] Maricel Jain MD Primary Care Provider [phone] Roc Solares MD Primary Care Provider [phone] Encounter Details Date Type Department Care Team (Late st Contact Info) Description 02/13/2021 Procedure Pass [facility], [address] [place] [address] Social History Tobacco Use Types Packs/Day Years [...] Description 09/25/2025 10:00 AM EDT Office Visit [facility] [address] [place] [address] 201 [place] [address] Hemalatha Givens MD [address] [place] [address] 201 [place] [address] [email or web address] documented as of this encounter Visit Diagnoses Not on filedocumented in this encounter Additional Health Concerns Assessment Noted Time PHQ-2 Depression Total Score: 0 03/23/20 19 10:03 AM EST documented as of this encounter Care Teams Non Clinical Advisor Relationship Specialty Start Date End Date Maricel Jain MD [address] [place] [address] [address] [place] [address] [email or web address] PCP - General 05/14/17 05/20/22 Roc Solares MD [address] [facility], [address] [place] [address] [email or web address] PCP - General Family Medicine 05/21/22 Madai Tejada MD [address] [place] [address] [email or web address] Historical LMR Provider 09/23/14 05/18/21 Husam Doll MD [address] [place] [address] [email or web address] Historical LMR Provider 09/23/14 05/18/21 Cassandra Myers MD Historical LMR Provider 09/23/14 05/18/21 Ana Maldonado MD [address] [place] [address] [email or web address] Historical LMR Provider 06/01/16 05/18/21 Erlinda Rapp PA [facility] [address] Historical LMR Provider 02/23/17 2 Esme Rene NP 1 [facility] [place]I Phan [address] Historical LMR Provider 02/23/17 2 Primo Elder DO [address] [facility], [address] [place] [address] Historical LMR Provider 02/23/17 Ashly Vega NP [address] [place] [address] Historical LMR Provider 02/23/17 2 Lina Suarez CNM [address] [place] [address] Historical LMR Provider 02/23/17 2 Audie Fairchild MD [address] [place] [address] Historical LMR Provider 02/23/17 Ziggy Jose DO [address] [place] [address] [facility], [place] [address] Historical LMR Provider 02/23/17 05/18/21 Ernesto Mcallister MD [address] [place] [address], 2nd [place] [address] Historical LMR Provider 02/23/17 05/18/21 Mathew Cueto MD [address] [place] [phone] [email or web address] Historical LMR Provider 02/23/17 Chari Kaur MD [address] [place] [address] Historical LMR Provider 02/23/17 Maricel Jain MD [address] [place] [address] Historical LMR Provider 02/23/17 Jj Blake MD [address] [place] [address] Historical LMR Provider 02/23/17 Tomas Argueta MD [address] [place] [phone] Historical LMR Provider 02/23/17 2 Kristy Pettit MD [address] [place] [address] [facility], [facility] [place] [address] Historical LMR Provider 02/23/17 Naomi Morton MD [address] [place] [address] 7 [place] [address] Historical LMR Provider 02/23/17 Steve Nieto MD [address] [place] [address] Historical LMR Provider 02/23/17 2 documented as of this encounter Additional Source Comments The information contained in this document represents components of the legal health record. It is not the complete legal health record.[facility]
--- OUTSIDE RECORDS SUMMARY | 2025-03-01 10:27 | XMS_ITS | Encounter Summary ---
Author Organization [facility] Address [address] [place] [address] Phone Care Team Providers Care Metal Bench Patternmaker Name Role Phone Primo Elder DO Unavailable Audie Fairchild MD Unavailable Mathew Cueto MD Unavailable [phone] Chari Kaur MD Unavailable Maricel Jain MD Unavailable Jj Blake MD Unavailable [phone] Naomi Morton MD Unavailable Roc Solares MD Primary Care Provider Encounter Details Date Type Department Care Team (Late st Contact Info) Description 07/08/2024 Telephone [facility] Family Medicine [address] [place] [address] [place] [address] [place] [address] Social History Tobacco Use Types Packs/Day Years [...] EDT Office Visit [facility] [place] [facility] [address] [facility] [address] [place] [address] Hemalatha Givens MD 15 [facility] [place]. 201 [place] [address] [email or web address] documented as of this encounter Visit Diagnoses Not on filedocumented in this encounter Additional Health Concerns Assessment Noted Time PHQ-2 Depression Total Score: 0 04/21/20 24 12:01 PM EST documented as of this encounter Care Teams Metal Bench Patternmaker Relationship Specialty Start Date End Date Roc Solares MD [address] [facility] 7 [place] [address] [email or web address] PCP - General Family Medicine 05/21/22 Primo Elder DO [address] [facility] 7 [place] [address] [email or web address] Historical LMR Provider 02/23/17 Audie Fairchild MD [address] [facility], [address] [place] [address] [email or web address] Historical LMR Provider 02/23/17 Mathew Cueto MD [address] [facility] 7 [place] [phone] [email or web address] Historical LMR Provider 02/23/17 Chari Kaur MD [address] [place] [address] Historical LMR Provider 02/23/17 Maricel Jain MD [address] [place] [address] Historical LMR Provider 02/23/17 Jj Blake MD [address] [place] [address] Historical LMR Provider 02/23/17 Naomi Morton MD [address] [place] [address] Historical LMR Provider 02/23/17 documented as of this encounter Additional Source Comments The information contained in this document represents components of the legal health record. It is not the complete legal health record.[facility]
--- OUTSIDE RECORDS SUMMARY | 2025-03-01 10:27 | XMS_ITS | Encounter Summary ---
Author Organization [facility] Address [address] [place] [address] Phone Care Team Providers Care Shift Superintendent Name Role Phone Primo Elder DO Unavailable Audie Fairchild MD Unavailable Mathew Cueto MD Unavailable Chari Kaur MD Unavailable Maricel Jain MD Unavailable [phone] Jj Blake MD Unavailable [phone] Naomi Morton MD Unavailable [phone] Roc Solares MD Primary Care Provider [phone] Encounter Details Date Type Department Care Team (Late st Contact Info) Description 07/06/2024 Procedure Pass OR Admitting Dept - Virtual Department [address] [place] [address] Social History Tobacco Use Types Packs/Day Years [...] high school, GED, job training, learning the Portuguese language, technical skills, or developing parenting skills)? [...] Description 09/25/2025 10:00 AM EDT Office Visit [facility] [address] [facility] [address] [place] [address] Hemalatha Givens MD 15 [facility] [place]. 201 [place] [address] [email or web address] documented as of this encounter Visit Diagnoses Not on filedocumented in this encounter Additional Health Concerns Assessment Noted Time PHQ-2 Depression Total Score: 0 04/21/20 24 12:01 PM EST documented as of this encounter Care Teams Shift Superintendent Relationship Specialty Start Date End Date Roc Solares MD [address] [place] [address] [email or web address] PCP - General Family Medicine 05/21/22 Primo Elder DO [address] [place] [address] 7 [place] [address] [email or web address] Historical LMR Provider 02/23/17 Audie Fairchild MD [address] [facility], [address] [place] [address] [email or web address] Historical LMR Provider 02/23/17 Mathew Cueto MD [address] [place] [address] [email or web address] Historical LMR Provider 02/23/17 Chari Kaur MD [address] [place] [address] [email or web address] Historical LMR Provider 02/23/17 Maricel Jain MD [address] [place] [address] Historical LMR Provider 02/23/17 Jj Blake MD [address] [place] [address] Historical LMR Provider 02/23/17 Naomi Morton MD [address] [place] [address] [email or web address] Historical LMR Provider 02/23/17 documented as of this encounter Additional Source Comments The information contained in this document represents components of the legal health record. It is not the complete legal health record.[facility]
--- OUTSIDE RECORDS SUMMARY | 2025-03-01 10:28 | XMS_ITS | Encounter Summary ---
Author Organization [facility] Address [address] [place] [address] Phone Care Team Providers Care Geographic Information Systems Director Name Role Phone Madai Tejada MD Unavailable [phone] Husam Doll MD Unavailable [phone] Cassandra Myers MD Unavailable Unav ailable Ana Maldonado MD Unavailable [phone] Erlinda Rapp Unavailable [phone] Esme Rene PCB DESIGNER Unavailable Primo Elder DO Unavailable Ashly Vega PCB DESIGNER Unavailable Lina Suarez CNM Unavailable Audie Fairchild MD Unavailable Ziggy Jose DO Unavailable Ernesto Mcallister MD Unavailable Mathew Cueto MD Unavailable [phone] Chari Kaur MD Unavailable Maricel Jain MD Unavailable [phone] Jj Blake MD Unavailable [phone] Tomas Argueta MD Unavailable Kristy Pettit MD Unavailable [phone] Naomi Morton MD Unavailable [phone] Steve Nieto MD Unavailable [phone] Maricel Jain MD Primary Care Provider [phone] Roc Solares MD Primary Care Provider [phone] Encounter Details Date Type Department Care Team (Late st Contact Info) Description 10/28/2017 Ancillary Orders Virtual Department [address] [place] [address] Reed Sandoval MD [address] [place] [address] Social History Tobacco Use Types Packs/Day Years [...] 10:00 AM EDT Office Visit [facility] [address] [place] [address] [address] [place] [address] Hemalatha Givens MD [address] [place] [address] [place]. [address] [place] [address] [email or web address] documented as of this encounter Visit Diagnoses Not on filedocumented in this encounter Additional Health Concerns Assessment Noted Time PHQ-2 Depression Total Score: 0 09/01/19 18 2:54 PM EDT documented as of this encounter Care Teams Geographic Information Systems Director Relationship Specialty Start Date End Date Maricel Jain MD [address] [place] [address] [address] [place] [address] [email or web address] PCP - General 05/14/17 05/20/22 Roc Solares MD [address] [facility], [address] [place] [address] [email or web address] PCP - General Family Medicine 05/21/22 Madai Tejada MD [address] [place] [address] [email or web address] Historical LMR Provider 09/23/14 05/18/21 Husam Doll MD [address] [place] [address] [email or web address] Historical LMR Provider 09/23/14 05/18/21 Cassandra Myers MD Historical LMR Provider 09/23/14 05/18/21 Ana Maldonado MD [address] [place] [address] [email or web address] Historical LMR Provider 06/01/16 05/18/21 Erlinda Rapp PA [facility] [place] [address] Historical LMR Provider 02/23/17 2 Esme Rene NP [address] [place] [address] Historical LMR Provider 02/23/17 2 Primo Elder DO [address] [place] [address] 7 [place] [address] [email or web address] Historical LMR Provider 02/23/17 Ashly Vega NP [address] [place] [address] Historical LMR Provider 02/23/17 2 Lina Suarez CNM [address] [place] [address] Historical LMR Provider 02/23/17 2 uAdie Fairchild MD [address] [place] [address] [email or web address] Historical LMR Provider 02/23/17 Ziggy Jose DO [address] [place] [address] [facility], [place] [address] Historical LMR Provider 02/23/17 05/18/21 Ernesto Mcallister MD 22 [facility], 2nd [place] [address] Historical LMR Provider 02/23/17 05/18/21 Mathew Cueto MD [address] [place] [phone] [email or web address] Historical LMR Provider 02/23/17 Chari Kaur MD [address] [place] [address] Historical LMR Provider 02/23/17 Maricel Jain MD [address] [place] [address] 7 [place] [address] Historical LMR Provider 02/23/17 Jj Blake MD [address] [place] [address] Historical LMR Provider 02/23/17 Tomas Argueta MD [address] [place] [phone] Historical LMR Provider 02/23/17 2 Kristy Pettit MD [address] [place] [address] [facility], [place] [address] Historical LMR Provider 02/23/17 Naomi Morton MD [address] [place] [address] 7 [place] [address] Historical LMR Provider 02/23/17 Steve Nieto MD [address] [place] [address] Historical LMR Provider 02/23/17 2 documented as of this encounter Additional Source Comments The information contained in this document represents components of the legal health record. It is not the complete legal health record.[facility]
--- OUTSIDE RECORDS SUMMARY | 2025-03-01 10:28 | XMS_ITS | Encounter Summary ---
Author Organization [facility] Address [address] [place] [address] Phone Care Team Providers Care Balance Clerk Name Role Phone Madai Tejada MD Unavailable [phone] Husam Doll MD Unavailable [phone] Cassandra Myers MD Unavailable Unav ailable Ana Maldonado MD Unavailable [phone] Erlinda Rapp Unavailable [phone] Esme Rene LAUNDRY BAG PUNCH OPERATOR Unavailable Primo Elder DO Unavailable Ashly Vega LAUNDRY BAG PUNCH OPERATOR Unavailable Lina Suarez CNM Unavailable Audie Fairchild MD Unavailable Ziggy Jose DO Unavailable Ernesto Mcallister MD Unavailable Mathew Cueto MD Unavailable Chari Kaur MD Unavailable Maricel Jain MD Unavailable Jj Blake MD Unavailable Tomas Argueta MD Unavailable [phone] Kristy Pettit MD Unavailable [phone] Naomi Morton MD Unavailable [phone] Steve Nieto MD Unavailable [phone] Maricel Jain MD Primary Care Provider [phone] Roc Solares MD Primary Care Provider [phone] Encounter Details Date Type Department Care Team (Latest Contact Info) Description 04/13/2019 Transcribe Orders [address] [place] [address] Mathew Jewell MD [address] [place] [address] Female infertility (Primary Dx) Social History Tobacco [...] Description 09/25/2025 10:00 AM EDT Office Visit [facility] [address] [place] [address] 201 [place] [address] Hemalatha Givens MD 15 [facility] [place]. [address] [place] [address] [email or web address] documented as of this encounter Results * FSH (04/13/2019 12:35 PM EST) FSH 11.5 IU/L [facility] Comment: FEMALE: Follicular: 3.5 - 12.5 mIU/ml. Ovulate: 4.7 - 21.5 mIU/ml. Luteal: 1.7 - 7.7 mIU/ml. Postmenopausal: 25.8 - 134.8 mIU/ml. Blood 04/13/2019 12:3 5 PM EST 04/13/2019 12:37 PM EST Mathew Jewell MD LAB BLOOD ORDERABLES Final Resu lt Performing Organization Address [facility]/ZIP Co de Phone Number [address] [address] * Estradiol (04/13/2019 12:35 PM EST) ESTRADIOL 383 pg/mL [facility] Comment: FEMALE: Follicular: Less than 12 to 233 pg/ml Midcycle: 41 - 398 pg/ml Luteal: 22 - 341 pg/ml Postmenopausal: less than 5 - 138 pg/ml Blood 04/13/2019 12:3 5 PM EST 04/13/2019 12:37 PM EST Mathew Jewell MD LAB BLOOD ORDERABLES Final Resu lt Performing Organization Address [facility] [[email or web address]] Co de Phone Number [address] [address] documented in this encounter Visit Diagnoses Diagnosis Female infertility- Primary Female infertility of unspecified origin documented in this encounter Additional Health Concerns Assessment Noted Time PHQ-2 Depression Total Score: 0 03/23/20 19 10:03 AM EST documented as of this encounter Care Teams Balance Clerk Relationship Specialty Start Date End Date Maricel Jain MD [address] [facility] 7 [place] [address] [email or web address] PCP - General 05/14/17 05/20/22 Roc Solares MD [address] [facility] 7 [place] [address] [email or web address] PCP - General Family Medicine 05/21/22 Madai Tejada MD [address] [place] [address], [place] [address] [email or web address] Historical LMR Provider 09/23/14 05/18/21 Husam Doll MD [address] [place] [address] [email or web address] Historical LMR Provider 09/23/14 05/18/21 Cassandra Myers MD Historical LMR Provider 09/23/14 05/18/21 Ana Maldonado MD [address] [place] [address] [email or web address] Historical LMR Provider 06/01/16 05/18/21 Erlinda Rapp PA [facility] [place] [address] Historical LMR Provider 02/23/17 2 Esme Rene NP 1 [place] [address] Historical LMR Provider 02/23/17 2 Primo Elder DO [address] [place] [address] 7 [place] [address] [email or web address] Historical LMR Provider 02/23/17 Ashly Vega NP [address] [place] [address] Historical LMR Provider 02/23/17 2 Lina Suarez CNM [address] [place] [address] Historical LMR Provider 02/23/17 2 Audie Fairchild MD [address] [place] [address] Historical LMR Provider 02/23/17 Ziggy Jose DO [address] [place] [address] [facility], [place] [address] Historical LMR Provider 02/23/17 05/18/21 Ernesto Mcallister MD [address] [place] [address], 2nd [place] [address] Historical LMR Provider 02/23/17 05/18/21 Mathew Cueto MD [address] [place] [phone] [email or web address] Historical LMR Provider 02/23/17 Chari Kaur MD [address] [place] [address] Historical LMR Provider 02/23/17 Maricel Jain MD [address] [place] [address] [email or web address] Historical LMR Provider 02/23/17 Jj Blake MD [address] [place] [address] Historical LMR Provider 02/23/17 Tomas Argueta MD 236 [facility] 7 [place] [address] Historical LMR Provider 02/23/17 2 Kristy Pettit MD [address] [place] [address] [facility], [facility] [place] [address] Historical LMR Provider 02/23/17 Naomi Morton MD 234 [facility] 7 [place] [address] [email or web address] Historical LMR Provider 02/23/17 Steve Nieto MD [address] [place] [address] Historical LMR Provider 02/23/17 2 documented as of this encounter Additional Source Comments The information contained in this document represents components of the legal health record. It is not the complete legal health record.[facility]
--- OUTSIDE RECORDS SUMMARY | 2025-03-01 10:28 | XMS_ITS | Encounter Summary ---
Author Organization [facility] Address [address] [place] [address] Phone Care Team Providers Care Millinery Blocker Name Role Phone Madai Tejada MD Unavailable [phone] Husam Doll MD Unavailable [phone] Cassandra Myers MD Unavailable Unav ailable Ana Maldonado MD Unavailable Erlinda Rapp Unavailable [phone] Esme Rene FIELD SERVICE MANAGER Unavailable Primo Elder DO Unavailable Ashly Vega FIELD SERVICE MANAGER Unavailable Lina Suarez CNM Unavailable Audie Fairchild MD Unavailable Ziggy Jose DO Unavailable Erensto Mcallister MD Unavailable Mathew Cueto MD Unavailable Chari Kaur MD Unavailable Maricel Jain MD Unavailable [phone] Jj Blake MD Unavailable Tomas Argueta MD Unavailable Kristy Pettit MD Unavailable [phone] Naomi Morton MD Unavailable [phone] Steve Nieto MD Unavailable [phone] Maricel Jain MD Primary Care Provider [phone] Roc Solares MD Primary Care Provider [phone] Encounter Details Date Type Department Care Team (Late st Contact Info) Description 11/04/2017 Procedure Pass [facility], [address] [place] [address] Social History Tobacco Use Types Packs/Day Years [...] Description 09/25/2025 10:00 AM EDT Office Visit [facility] Primary Care [address] [place] [address] [address] [place] [address] Hemalatha Givens MD [address] [place] [address] [address] [place] [address] documented as of this encounter Visit Diagnoses Not on filedocumented in this encounter Additional Health Concerns Assessment Noted Time PHQ-2 Depression Total Score: 0 09/01/19 18 2:54 PM EDT documented as of this encounter Care Teams Millinery Blocker Relationship Specialty Start Date End Date Maricel Jain MD [address] [place] [address], [address] [place] [address] PCP - General 05/14/17 05/20/22 Roc Solares MD 234 [facility], [address] [place] [address] [email or web address] PCP - General Family Medicine 05/21/22 Madai Tejada MD [address] [place] [address] [email or web address] Historical LMR Provider 09/23/14 05/18/21 Husam Doll MD [address] [place] [address] [email or web address] Historical LMR Provider 09/23/14 05/18/21 Cassandra Myers MD Historical LMR Provider 09/23/14 05/18/21 Ana Maldonado MD [address] [place] [address] [email or web address] Historical LMR Provider 06/01/16 05/18/21 Erlinda Rapp PA [facility] [place] [address] Historical LMR Provider 02/23/17 2 Esme Rene NP 1 [place] [address] Historical LMR Provider 02/23/17 2 Primo Elder DO [address] [facility], [address] [place] [address] Historical LMR Provider 02/23/17 Ashly Vega NP [address] [place] [address] Historical LMR Provider 02/23/17 2 Lina Suarez CNM [address] [place] [address] Historical LMR Provider 02/23/17 2 Audie Fairchild MD [address] [place] [address] Historical LMR Provider 02/23/17 Ziggy Jose DO [address] [place] [address] [facility], [place] [address] Historical LMR Provider 02/23/17 05/18/21 Ernesto Mcallister MD [address] [place] [address], 2nd [place] [address] Historical LMR Provider 02/23/17 05/18/21 Mathew Cueto MD [address] [place] [phone] [email or web address] Historical LMR Provider 02/23/17 Chari Kaur MD [address] [place] [address] [email or web address] Historical LMR Provider 02/23/17 Maricel Jain MD 234 [facility] 7 [place] [address] Historical LMR Provider 02/23/17 Jj Blake MD 22 [facility] [address] [place] [address] Historical LMR Provider 02/23/17 Tomas Argueta MD [address] [place] [phone] Historical LMR Provider 02/23/17 2 Kristy Pettit MD [address] [place] [address] [facility], [facility] [place] [address] [email or web address] Historical LMR Provider 02/23/17 Naomi Morton MD 234 [facility] 7 [place] [address] [email or web address] Historical LMR Provider 02/23/17 Steve Nieto MD 61 [place] [address] Historical LMR Provider 02/23/17 2 documented as of this encounter Additional Source Comments The information contained in this document represents components of the legal health record. It is not the complete legal health record.[facility]
--- OUTSIDE RECORDS SUMMARY | 2025-03-01 10:28 | XMS_ITS | Encounter Summary ---
Author Organization [facility] Address [address] [place] [address] Phone Care Team Providers Care Assistant Activities Director Name Role Phone Madai Tejada MD Unavailable [phone] Husam Doll MD Unavailable [phone] Cassandra Myers MD Unavailable Unav ailable Ana Maldonado MD Unavailable Erlinda Rapp Unavailable [phone] Esme Rene HEAD CORRECTION OFFICER Unavailable Primo Elder DO Unavailable Ashly Vega HEAD CORRECTION OFFICER Unavailable Lina Suarez CNM Unavailable Audie Fairchild MD Unavailable Ziggy Jose DO Unavailable Ernesto Mcallister MD Unavailable Mathew Cueto MD Unavailable [phone] Chari Kaur MD Unavailable Maricel Jain MD Unavailable Jj Blake MD Unavailable Tomas Argueta MD Unavailable Kristy Pettit MD Unavailable [phone] Naomi Morton MD Unavailable Steve Nieto MD Unavailable [phone] Maricel Jain MD Primary Care Provider [phone] Roc Solares MD Primary Care Provider [phone] Encounter Details Date Type Department Care Team (Late st Contact Info) Description 10/28/2017 Ancillary Orders Virtual Department 30 [place] [address] Reed Sandoval MD [address] [place] [address] Facet hypertrophy of lumbar region; Degenerative disc [...] Description 09/25/2025 10:00 AM EDT Office Visit [facility] [place] [facility] [address] [facility] [address] [place] [address] Hemalatha Givens MD 15 [facility] [place]. 201 [place] [address] [email or web address] documented as of this encounter Visit Diagnoses Diagnosis Facet hypertrophy of lumbar region Degenerative disc disease at L5-S1 level documented in this encounter Additional Health Concerns Assessment Noted Time PHQ-2 Depression Total Score: 0 09/01/19 18 2:54 PM EDT documented as of this encounter Care Teams Assistant Activities Director Relationship Specialty Start Date End Date Maricel Jain MD [address] [facility], [address] [place] [address] [email or web address] PCP - General 05/14/17 05/20/22 Roc Solares MD [address] [facility], [address] [place] [address] [email or web address] PCP - General Family Medicine 05/21/22 Madai Tejada MD [address] [place] [address] [email or web address] Historical LMR Provider 09/23/14 05/18/21 Husam Doll MD [address] [place] [address] [email or web address] Historical LMR Provider 09/23/14 05/18/21 Cassandra Myers MD Historical LMR Provider 09/23/14 05/18/21 Ana Maldonado MD [address] [place] [address] [email or web address] Historical LMR Provider 06/01/16 05/18/21 Erlinda Rapp PA [facility] [place] [address] Historical LMR Provider 02/23/17 2 Esme Rene HEAD CORRECTION OFFICER 1 [place] [address] Historical LMR Provider 02/23/17 2 Primo Elder DO [address] [place] [address] 7 [place] [address] [email or web address] Historical LMR Provider 02/23/17 Ashly Vega NP [address] [place] [address] Historical LMR Provider 02/23/17 2 Lina Suarez CNM [address] [place] [address] Historical LMR Provider 02/23/17 2 Audie Fairchild MD [address] [place] [address] [email or web address] Historical LMR Provider 02/23/17 Ziggy Jose DO [address] [place] [address] [facility], [place] [address] [email or web address] Historical LMR Provider 02/23/17 05/18/21 Ernesto Mcallister MD [address] [place] [address], 2nd [place] [address] Historical LMR Provider 02/23/17 05/18/21 Mathew Cueto MD [address] [place] [address] 7 [place] [phone] [email or web address] Historical LMR Provider 02/23/17 Chari Kaur MD [address] [address] Historical LMR Provider 02/23/17 Maricel Jain MD [address] [place] [address] Historical LMR Provider 02/23/17 Jj Blake MD [address] [place] [address] Historical LMR Provider 02/23/17 Tomas Argueta MD [address] [place] [phone] Historical LMR Provider 02/23/17 2 Kristy Pettit MD [address] [place] [address] [facility], [place] [address] Historical LMR Provider 02/23/17 Naomi Morton MD [address] [place] [address] Historical LMR Provider 02/23/17 Steve Nieto MD [address] [place] [address] Historical LMR Provider 02/23/17 2 documented as of this encounter Additional Source Comments The information contained in this document represents components of the legal health record. It is not the complete legal health record.[facility]
--- OUTSIDE RECORDS SUMMARY | 2025-03-01 10:29 | XMS_ITS | Clinical Summary ---
Author Organization [address] Address [address] [place] [phone] Phone Care Team Providers Care Chief Of Party Name Role Phone No, Pcp (Do Not [...] cancer screening 2019 Lipid disorder screening 2019 Influenza vaccine 12/09/2024 04/21/2024, , 01/30/2022, Additional history exists Colon cancer screening, Colonoscopy 12/13/2024 Diabetes screening 12/13/2024 Covid-19 vaccine series ( - season) 2025 Tetanus adult (Td q 10,TDAP once) 01/11/2030 [...] GENERIC COMMERCIAL GENERIC COMMERCIAL GENERIC Care Teams Chief Of Party Relationship Specialty Start Date End Date No, Pcp (Do Not Change Name) PCP - General 02/04/24
--- OUTSIDE RECORDS SUMMARY | 2025-03-01 10:29 | XMS_ITS | Encounter Summary ---
Author Organization [facility] Address [address] [place] [address] Phone Care Team Providers Care Uptwist Spinner Name Role Phone Primo Elder DO Unavailable Audie Fairchild MD Unavailable Mathew Cueto MD Unavailable [phone] Chari Kaur MD Unavailable Maricel Jain MD Unavailable [phone] Jj Blake MD Unavailable [phone] Naomi Morton MD Unavailable [phone] Roc Solares MD Primary Care Provider [phone] Encounter Details Date Type Department Care Team (Late st Contact Info) Description 04/06/2024 Procedure Pass [facility] - [address] [place] [address] Social History Tobacco Use Types Packs/Day Years [...] Description 09/25/2025 10:00 AM EDT Office Visit [facility] [place] [facility] [address] [facility] [address] [place] [address] Hemalatha Givens MD 15 [facility] [place]. 201 [place] [address] [email or web address] documented as of this encounter Visit Diagnoses Not on filedocumented in this encounter Additional Health Concerns Assessment Noted Time PHQ-2 Depression Total Score: 0 04/21/20 24 12:01 PM EST documented as of this encounter Care Teams Uptwist Spinner Relationship Specialty Start Date End Date Roc Solares MD [address] [place] [address] 7 [place] [address] [email or web address] PCP - General Family Medicine 05/21/22 Primo Elder DO [address] [place] [address] 7 [place] [address] [email or web address] Historical LMR Provider 02/23/17 Audie Fairchild MD [address] [facility], [address] [place] [address] [email or web address] Historical LMR Provider 02/23/17 Mahtew Cueto MD [address] [place] [address] [place] [phone] [email or web address] Historical LMR Provider 02/23/17 Chari Kaur MD [address] [place] [address] [email or web address] Historical LMR Provider 02/23/17 Maricel Jain MD [address] [place] [address] [place] [address] [email or web address] Historical LMR Provider 02/23/17 Jj Blake MD [address] [place] [address] Historical LMR Provider 02/23/17 Naomi Morton MD [address] [place] [address] [email or web address] Historical LMR Provider 02/23/17 documented as of this encounter Additional Source Comments The information contained in this document represents components of the legal health record. It is not the complete legal health record.[facility]
--- OUTSIDE RECORDS SUMMARY | 2025-03-01 10:29 | XMS_ITS | Encounter Summary ---
Author Organization [facility] Address [address] [place] [address] Phone Care Team Providers Care Relay Motorman Name Role Phone Madai Tejada MD Unavailable [phone] Husam Doll MD Unavailable [phone] Cassandra Myers MD Unavailable Unav ailable Ana Maldonado MD Unavailable Erlinda Rapp Unavailable Esme Rene MANAGER SAS Unavailable Primo Elder DO Unavailable Ashly Vega MANAGER SAS Unavailable Lina Suarez CNM Unavailable Audie Fairchild MD Unavailable Ziggy Jose DO Unavailable Ernesto Mcallister MD Unavailable Mathew Cueto MD Unavailable Chari Kaur MD Unavailable Maricel Jain MD Unavailable Jj Blake MD Unavailable Tomas Argueta MD Unavailable Kristy Pettit MD Unavailable [phone] Naomi Morton MD Unavailable [phone] Steve Nieto MD Unavailable [phone] Maricel Jain MD Primary Care Provider [phone] Roc Solares MD Primary Care Provider [phone] Encounter Details Date Type Department Care Team (Late st Contact Info) Description 03/14/2020 Procedure Pass [facility] [address] [place] [address] Social History Tobacco Use Types Packs/Day Years [...] Description 09/25/2025 10:00 AM EDT Office Visit [facility] [place] [facility] 15 [facility] 201 [place] [address] Hemalatha Givens MD [address] [place] [address] 201 [place] [address] [email or web address] documented as of this encounter Visit Diagnoses Not on filedocumented in this encounter Additional Health Concerns Assessment Noted Time PHQ-2 Depression Total Score: 0 03/23/20 19 10:03 AM EST documented as of this encounter Care Teams Relay Motorman Relationship Specialty Start Date End Date Maricel Jain MD [address] [place] [address] [address] [place] [address] [email or web address] PCP - General 05/14/17 05/20/22 Roc Solares MD 234 [facility], [address] [place] [address] [email or web address] PCP - General Family Medicine 05/21/22 Madai Tejada MD [address] [place] [address] [email or web address] Historical LMR Provider 09/23/14 05/18/21 Husam Doll MD [address] [place] [address] [email or web address] Historical LMR Provider 09/23/14 05/18/21 Cassandra Myers MD Historical LMR Provider 09/23/14 05/18/21 Ana Maldonado MD 65 [place] [address] [email or web address] Historical LMR Provider 06/01/16 05/18/21 Erlinda Rapp PA [facility] [place] [address] Historical LMR Provider 02/23/17 2 Esme Rene NP 1 [place] [address] Historical LMR Provider 02/23/17 2 Primo Elder DO [address] [facility], [address] [place] [address] Historical LMR Provider 02/23/17 Ashly Vega NP [address] [place] [address] Historical LMR Provider 02/23/17 2 Lina Suarez CNM [address] [place] [address] Historical LMR Provider 02/23/17 2 Audie Fairchild MD [address] [place] [address] [email or web address] Historical LMR Provider 02/23/17 Ziggy Jose DO [address] [place] [address] Orth[facility] Medicine, [place] [address] Historical LMR Provider 02/23/17 05/18/21 Ernesto Mcallister MD [address] [place] [address], 2[address] [place] [address] Historical LMR Provider 02/23/17 05/18/21 Mathew Cueto MD [address] [place] [phone] [email or web address] Historical LMR Provider 02/23/17 Chari Kaur MD [address] [place] [address] Historical LMR Provider 02/23/17 Maricel Jain MD [address] [place] [address] 7 [place] [address] Historical LMR Provider 02/23/17 Jj Blake MD [address] [address] Historical LMR Provider 02/23/17 Tomas Argueta MD [address] [place] [phone] Historical LMR Provider 02/23/17 2 Kristy Pettit MD [address] [place] [address] Orthopedics [facility] Sports Medicine, [facility] [place] [address] Historical LMR Provider 02/23/17 Naomi Morton MD [address] [place] [address] Historical LMR Provider 02/23/17 Steve Nieto MD [address] [place] [address] Historical LMR Provider 02/23/17 2 documented as of this encounter Additional Source Comments The information contained in this document represents components of the legal health record. It is not the complete legal health record.[facility]
--- OUTSIDE RECORDS SUMMARY | 2025-03-01 10:29 | XMS_ITS | Encounter Summary ---
Author Organization [facility] Address [address] [facility] [address] [place] [address] Phone Care Team Providers Care Assistant Warehouse Manager Name Role Phone Primo Elder DO Unavailable Audie Fairchild MD Unavailable Mathew Cueto MD Unavailable [phone] Chari Kaur MD Unavailable Maricel Jain MD Unavailable Jj Blake MD Unavailable Naomi Morton MD Unavailable [phone] Roc Solares MD Primary Care Provider [phone] Encounter Details Date Type Department Care Team (Late st Contact Info) Description 09/28/2024 Ancillary Orders [facility], Mammography- [facility] 30 [place] [address] Audie Fairchild MD 22 [facility], [address] [place], [place] [id number] [email or web address] Abnormal mammogram (Primary Dx) Social History Tobacco [...] high school, GED, job training, learning the [place] language, technical skills, or developing parenting skills)? [...] Description 09/25/2025 10:00 AM EDT Office Visit [facility] [place] [facility] [address] [facility] [address] [place] [address] Hemalatha Givens MD 15 [facility] [place]. 201 [place] [address] documented as of this encounter Results * [...] as of this encounter Care Teams Assistant Warehouse Manager Relationship Specialty Start Date End Date Roc Solares MD [address] [place] [address] [email or web address] PCP - General Family Medicine 05/21/22 Primo Elder DO [address] [place] [address] [email or web address] Historical LMR Provider 02/23/17 Audie Fairchild MD [address] [place] [address] [email or web address] Historical LMR Provider 02/23/17 Mathew Cueto MD [address] [place] [phone] [email or web address] Historical LMR Provider 02/23/17 Chari Kaur MD [address] [place] [address] [email or web address] Historical LMR Provider 02/23/17 Maricel Jain MD [address] [place] [address] [email or web address] Historical LMR Provider 02/23/17 Jj Blake MD [address] [place] [address] [email or web address] Historical LMR Provider 02/23/17 Naomi Morton MD [address] [place] [address] 7 [place] [address] [email or web address] Historical LMR Provider 02/23/17 documented as of this encounter Additional Source Comments The information contained in this document represents components of the legal health record. It is not the complete legal health record.[facility]
== END 2025-03-01 09:59 | disposition home or self-care (01) ==
LOC: HO.PMC 09:20
PROVIDERS: PCP Family Medicine; Visit Provider Internal Medicine
DX: M53.3 Sacrococcygeal disorders, not elsewhere classified (principal); G89.29 Other chronic pain
CPT/HCPCS: 99214